=== PATIENT | male | born 1950 | race Caucasian/White ===

== ENCOUNTER → 2016-03-19 | Outpatient (CLI) | payer OTHER ==
--- NOTE | 2016-03-19 10:16 | MR ---
EXAMINATION TYPE: MR lumbar spine wo con DATE OF EXAM: 03/19/2016 9:50 AM COMPARISON: NONE HISTORY: low back pain for 6 months CONTRAST: 0 mL intravenous MultiHance. TECHNIQUE: Multiplanar, multisequence images of the lumbar spine were acquired. FINDINGS: L5-S1: No significant disc bulge or disc herniation. No spinal canal stenosis. No foraminal stenosi s. L4-L5: No significant disc bulge or disc herniation. No spinal canal stenosis. No foraminal stenosi s. L3-L4: No significant disc bulge or disc herniation. No spinal canal stenosis. There may be some fo raminal narrowing within the inferior portion disc bulging. L2-L3: No significant disc bulge or disc herniation. No spinal canal stenosis. No foraminal stenosi s. L1-L2: No significant disc bulge or disc herniation. No spinal canal stenosis. No foraminal stenosi s. T12-L1: No significant disc bulge or disc herniation. No spinal canal stenosis. No foraminal stenos is. IMPRESSION: 1. Mild foraminal narrowing from disc bulge at right L3-4.
== END | disposition home or self-care (01) ==
LOC: RADMRIMAIN 09:08
PROVIDERS: ATTEND Family Medicine
DX: M99.73 Connective tissue and disc stenosis of intervertebral foramina of lumbar region (principal); M51.26 Other intervertebral disc displacement, lumbar region
CPT/HCPCS: 72148

== ENCOUNTER 2016-04-17 15:20 | Inpatient (IN) | payer OTHER ==
[2016-04-17] MEDS ORDERED: SODIUM CHLORIDE 0.9% 1,000 ML IV STA (15:24)
[2016-04-17] MEDS ORDERED: methylPREDNISolone SOD SUCCI 125 MG/2 ML VIAL IV STA (15:24)
[2016-04-17] MEDS ORDERED: IPRATROPIUM-ALBUTEROL 3 ML NEB INHALATION STA ×2 (15:24→16:46)
--- NOTE | 2016-04-17 15:28 | ED ---
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 He was brought in by EMS. He does feel short of breath. He currently is a smoker he does not use an inhaler or updraft machine at home. No chest pain reported. He has had rhinorrhea MD Complaint: shortness of breath, cough - Related Data Home Medications Medication Instructions Recorded Confirmed Aspirin 325 mg PO DAILY 11/22/14 04/17/16 Furosemide [Lasix] 40 mg PO DAILY 11/22/14 04/17/16 Gabapentin [Neurontin] 400 mg PO TID 11/22/14 04/17/16 Lisinopril [Zestril] 10 mg PO DAILY 11/22/14 04/17/16 Magnesium Oxide [Mag-Ox] 250 mg PO DAILY 11/22/14 04/17/16 Niacin [Niacin ER] 1,000 mg PO HS 11/22/14 04/17/16 Warfarin [Coumadin] 10 mg PO DIRECTED 11/22/14 04/17/16 Atorvastatin [Lipitor] 80 mg PO HS 04/17/16 04/17/16 amLODIPine [Norvasc] 10 mg PO DAILY 04/17/16 04/17/16 Allergies Allergy/AdvReac Type Severity Reaction Status Date / Time No Known Allergies Allergy Verified 04/17/16 16:04 Review of Systems ROS Statement: Those systems with pertinent positive or pertinent negative responses have been documented in the HPI. ROS Other: All systems not noted in ROS Statement are negative. Past Medical History Past Medical History: COPD, Diabetes Mellitus, Hyperlipidemia, Hypertension History of Any Multi-Drug Resistant Organisms: None Reported Additional Past Surgical History / Comment(s): right abka, fem pop Past Psychological History: No Psychological Hx Reported Smoking Status: Current every day smoker Past Alcohol Use History: None Reported Past Drug Use History: None Reported General Exam - General Exam Comments Initial Comments: This is a well-developed well-nourished awake alert oriented times female he is actively coughing and demonstrating dyspnea General appearance: alert, anxious Head exam: Present: atraumatic, normocephalic, normal inspection Eye exam: Present: normal appearance, PERRL, EOMI. Absent: scleral icterus, conjunctival injection, periorbital swelling ENT exam: Present: mucous membranes dry Neck exam: Present: normal inspection. Absent: tenderness, meningismus, lymphadenopathy Respiratory exam: Present: wheezes, accessory muscle use, decreased breath sounds. Absent: respiratory distress, rales, rhonchi, stridor Cardiovascular Exam: Present: normal rhythm, tachycardia, normal heart sounds. Absent: systolic murmur, diastolic murmur, rubs, gallop, clicks GI/Abdominal exam: Present: soft, normal bowel sounds. Absent: distended, tenderness, guarding, rebound, rigid Extremities exam: Present: full ROM, normal capillary refill, other (Above-the- knee amputation on the right no evidence of any infectious process). Absent: tenderness, pedal edema, joint swelling, calf tenderness Back exam: Present: normal inspection Neurological exam: Present: alert, oriented X3, CN II-XII intact Psychiatric exam: Present: normal affect, normal mood Skin exam: Present: warm, dry, intact, normal color. Absent: rash Course Vital Signs 04/17/16 04/17/16 04/17/16 15:22 15:45 16:00 Temperature 99.2 F Pulse Rate 124 H 117 H 120 H Respiratory 24 20 Rate Blood Pressure 166/87 166/87 O2 Sat by Pulse 96 96 Oximetry 04/17/16 04/17/16 16:09 17:12 Temperature Pulse Rate 120 H 108 H Respiratory 20 Rate Blood Pressure 195/80 O2 Sat by Pulse 99 Oximetry - Reevaluation(s) Reevaluation #1: 04/17/16 17:17 The patient still very dyspneic though he has had some improvement. Medical Decision Making - Medical Decision Making Patient still very dyspneic she will be admitted I did discuss the findings with the patient and his family. He still tachycardic with exertional dyspnea he was positive for influenza. Additionally his troponin is positive. - Lab Data Result diagrams: 04/17/16 15:50 04/17/16 15:50 Lab Results 04/17/16 04/17/1617 Range/Units 15:50 15:50 15:50 WBC 6.9 (3.8-10.6) k/uL RBC 3.28 L (4.30-5.90) m/uL Hgb 10.0 L (13.0-17.5) gm/dL Hct 31.4 L (39.0-53.0) % MCV 95.7 (80.0-100.0) fL MCH 30.4 (25.0-35.0) pg MCHC 31.8 (31.0-37.0) g/dL RDW 15.3 (11.5-15.5) % Plt Count 156 (150-450) k/uL Neutrophils % 83 % Lymphocytes % 7 % Monocytes % 5 % Eosinophils % 1 % Basophils % 1 % Neutrophils # 5.7 (1.3-7.7) k/uL Lymphocytes # 0.5 L (1.0-4.8) k/uL Monocytes # 0.4 (0-1.0) k/uL Eosinophils # 0.0 (0-0.7) k/uL Basophils # 0.1 (0-0.2) k/uL PT (9.0-12.0) sec INR (<1.1) APTT (22.0-30.0) sec Sodium (137-145) mmol/L Potassium (3.5-5.1) mmol/L Chloride (98-107) mmol/L Carbon Dioxide (22-30) mmol/L Anion Gap mmol/L BUN (9-20) mg/dL Creatinine (0.66-1.25) mg/dL Est GFR (MDRD) Af Amer (>60 ml/min/1.73 sqM) Est GFR (MDRD) Non-Af (>60 ml/min/1.73 sqM) Glucose (74-99) mg/dL Calcium (8.4-10.2) mg/dL Magnesium (1.6-2.3) mg/dL Total Bilirubin (0.2-1.3) mg/dL AST (17-59) U/L ALT (21-72) U/L Alkaline Phosphatase (38-126) U/L Total Creatine Kinase 701 H (55-170) U/L CK-MB (CK-2) 2.7 H* (0.0-2.4) ng/mL CK-MB (CK-2) Rel Index 0.4 Troponin I 0.063 H* (0.000-0.034) ng/mL NT-Pro-B Natriuret Pep pg/mL Total Protein (6.3-8.2) g/dL Albumin (3.5-5.0) g/dL Influenza Type A RNA Detected H (Not Detectd) Influenza Type B (PCR) Not Detected (Not Detectd) 04/17/16 04/17/16 04/17/16 Range/Units 15:50 15:50 15:50 WBC (3.8-10.6) k/uL RBC (4.30-5.90) m/uL Hgb (13.0-17.5) gm/dL Hct (39.0-53.0) % MCV (80.0-100.0) fL MCH (25.0-35.0) pg MCHC (31.0-37.0) g/dL RDW (11.5-15.5) % Plt Count (150-450) k/uL Neutrophils % % Lymphocytes % % Monocytes % % Eosinophils % % Basophils % % Neutrophils # (1.3-7.7) k/uL Lymphocytes # (1.0-4.8) k/uL Monocytes # (0-1.0) k/uL Eosinophils # (0-0.7) k/uL Basophils # (0-0.2) k/uL PT 14.1 H (9.0-12.0) sec INR 1.4 (<1.1) APTT 29.7 (22.0-30.0) sec Sodium 139 (137-145) mmol/L Potassium 5.2 H (3.5-5.1) mmol/L Chloride 108 H (98-107) mmol/L Carbon Dioxide 19 L (22-30) mmol/L Anion Gap 12 mmol/L BUN 47 H (9-20) mg/dL Creatinine 2.98 H (0.66-1.25) mg/dL Est GFR (MDRD) Af Amer 26 (>60 ml/min/1.73 sqM) Est GFR (MDRD) Non-Af 21 (>60 ml/min/1.73 sqM) Glucose 129 H (74-99) mg/dL Calcium 9.1 (8.4-10.2) mg/dL Magnesium 2.1 (1.6-2.3) mg/dL Total Bilirubin 0.7 (0.2-1.3) mg/dL AST 37 (17-59) U/L ALT 25 (21-72) U/L Alkaline Phosphatase 100 (38-126) U/L Total Creatine Kinase (55-170) U/L CK-MB (CK-2) (0.0-2.4) ng/mL CK-MB (CK-2) Rel Index Troponin I (0.000-0.034) ng/mL NT-Pro-B Natriuret Pep 3680 pg/mL Total Protein 6.5 (6.3-8.2) g/dL Albumin 3.8 (3.5-5.0) g/dL Influenza Type A RNA (Not Detectd) Influenza Type B (PCR) (Not Detectd) - EKG Data -: EKG Interpreted by Al EKG shows normal: sinus rhythm Rate: tachycardia (Sinus tachycardia of 120 rate, OK interval 166 QRS duration 72 QT/QTC of 314/443 is otherwise normal EKG except for the tachycardia.) - Radiology Data Radiology results: report reviewed (Review the x-ray shows no acute findings.), image reviewed Critical Care Time Critical Care Time: Yes Critical Care Time: 35 minutes of critical care time which includes initial monitoring of the EMS call and discussed with paramedics. History physical lab and x-rays on the patient. Reevaluation patient several occasions. Discussion with the patient family regarding findings discussed with the main service. Admission orders and documentation. Disposition Clinical Impression: COPD with exacerbation, Acute respiratory distress syndrome, Influenza due to influenza virus, type A, human, Renal insufficiency syndrome, Elevated troponin , Congestive heart failure Disposition: ADMITTED IP TO THIS HOSP Condition: Stable
--- NOTE | 2016-04-17 16:25 | XR ---
EXAMINATION TYPE: XR chest 2V DATE OF EXAM: 04/17/2016 4:16 PM COMPARISON: Prior chest x-ray May 16, 2013. HISTORY: Cough and difficulty in breathing. TECHNIQUE: Frontal and lateral views of the chest are obtained. FINDINGS: Underlying emphysematous change is present. There is no focal air space opacity, pleural ef fusion, or pneumothorax seen. The cardiac silhouette size is within normal limits with atherosclerot ic change in thoracic aorta. The osseous structures are somewhat demineralized IMPRESSION: Chronic emphysematous change without acute pulmonary process.
[2016-04-17 16:33] LABS: Basophils # (A) 0.1 k/uL (0-0.2); Basophils % (A) 1 %; CH 31.2; CHCM 32.9; Eosinophils % (A) 1 %; HCT 31.4 % (39.0-53.0); HDW 3.06; Luc # (Auto) 0.26; Luc % (Auto) 4; Lymphocytes # (A) 0.5 k/uL (1.0-4.8); Lymphocytes % (A) 7 %; MCH 30.4 pg (25.0-35.0); MCHC 31.8 g/dL (31.0-37.0); MCV 95.7 fL (80.0-100.0); Mean Platelet Volume 7.5; Monocytes # (A) 0.4 k/uL (0-1.0); Monocytes % (A) 5 %; Neutrophils # (A) 5.7 k/uL (1.3-7.7); Neutrophils % (A) 83 %; RBC 3.28 m/uL (4.30-5.90); RDW 15.3 % (11.5-15.5); WBC 6.9 k/uL (3.8-10.6); WBC (Perox) 7.35
[2016-04-17 16:40] LABS: Calcium 9.1 mg/dL (8.4-10.2); Magnesium 2.1 mg/dL (1.6-2.3); Potassium 5.2 mmol/L (3.5-5.1); Total Bilirubin 0.7 mg/dL (0.2-1.3); Total Protein 6.5 g/dL (6.3-8.2)
[2016-04-17 16:48] LABS: INR 1.4 (<1.1); Partial Thromboplastin Time 29.7 sec (22.0-30.0); Prothrombin Time 14.1 sec (9.0-12.0)
[2016-04-17] MEDS ORDERED: SODIUM CHLORIDE 0.9% 500 ML IV STA (16:58)
[2016-04-17 17:04] LABS: Creatine Kinase MB 2.7 ng/mL (0.0-2.4); Troponin I 0.063 ng/mL (0.000-0.034)
[2016-04-17] MEDS ORDERED: WARFARIN 10 MG TAB PO SCH (17:30)
[2016-04-17] MEDS: IPRATROPIUM-ALBUTEROL 3 ML NEB INHALATION SCH ×2 (19:17→23:16)
[2016-04-17] MEDS: ATORVASTATIN 80 MG TAB PO SCH (20:29)
[2016-04-17] MEDS: NIACIN TR 500 MG CAPSULE.ER PO SCH (20:29)
[2016-04-17] MEDS: methylPREDNISolone SOD SUCCI 125 MG/2 ML VIAL IV SCH ×2 (20:29→23:08)
[2016-04-17] MEDS: GABAPENTIN 400 MG CAP PO SCH (20:33)
[2016-04-17] MEDS ORDERED: INSULIN LISPRO (humaLOG) 300 UNIT/3 ML VIAL SQ SCH (21:00)
[2016-04-17 21:05] LABS: Glucose,Whole Blood 377 mg/dL (75-99)
[2016-04-17 21:07] VITALS: BMI 24.3
[2016-04-17] MEDS: SODIUM CHLORIDE 0.9% 1,000 ML IV SCH (21:25)
[2016-04-17] MEDS ORDERED: IPRATROPIUM-ALBUTEROL 3 ML NEB INHALATION PRN (22:37)
[2016-04-17] MEDS ORDERED: ALPRAZolam 0.25 MG TAB PO PRN (22:38)
[2016-04-17] MEDS ORDERED: MELATONIN 3 MG TABLET PO PRN (22:40)
[2016-04-17 22:53] LABS: Glucose,Whole Blood 353 mg/dL (75-99)
[2016-04-17] MEDS: OSELTAMIVIR 75 MG CAP PO SCH (23:08)
[2016-04-17] MEDS: HEPARIN SODIUM,PORCINE 5,000 UNIT/ML 1 ML VIAL SQ SCH (23:08)
[2016-04-17] MEDS: WARFARIN 10 MG TAB PO SCH (23:08)
[2016-04-18] MEDS: IPRATROPIUM-ALBUTEROL 3 ML NEB INHALATION SCH ×5 (03:20→21:08)
[2016-04-18 06:28] LABS: Glucose,Whole Blood 389 mg/dL (75-99)
[2016-04-18 06:45] LABS: Basophils % (A) 0 %; CH 30.6; CHCM 31.3; Eosinophils % (A) 0 %; HCT 26.3 % (39.0-53.0); Hypochromasia Moderate; Luc # (Auto) 0.02; Luc % (Auto) 1; Lymphocytes # (A) 0.3 k/uL (1.0-4.8); Lymphocytes % (A) 6 %; MCH 30.7 pg (25.0-35.0); MCHC 31.2 g/dL (31.0-37.0); MCV 98.4 fL (80.0-100.0); Macrocytosis Slight; Mean Platelet Volume 7.6; Monocytes # (A) 0.1 k/uL (0-1.0); Monocytes % (A) 2 %; Neutrophils # (A) 3.7 k/uL (1.3-7.7); Neutrophils % (A) 91 %; RBC 2.68 m/uL (4.30-5.90); RDW 15.3 % (11.5-15.5); WBC (Perox) 4.15
[2016-04-18] MEDS: methylPREDNISolone SOD SUCCI 125 MG/2 ML VIAL IV SCH ×2 (06:47→11:53)
[2016-04-18 06:51] LABS: HGB 8.2 gm/dL (13.0-17.5)
[2016-04-18 06:54] LABS: INR 1.3 (<1.1); Prothrombin Time 12.4 sec (9.0-12.0)
[2016-04-18 07:03] LABS: Calcium 8.6 mg/dL (8.4-10.2); Potassium 4.5 mmol/L (3.5-5.1)
[2016-04-18] MEDS: SYMBICORT 160-4.5 MCG INHALER INHALATION SCH ×3 (07:14→21:08)
[2016-04-18 08:08] LABS: Glucose,Whole Blood 436 mg/dL (75-99)
[2016-04-18] MEDS: INSULIN LISPRO (humaLOG) 300 UNIT/3 ML VIAL SQ SCH ×3 (08:08→20:07)
[2016-04-18] MEDS: INSULIN REGULAR 100 UNIT in SODIUM CHLORIDE 0.9% 100 ML IV SCH ×2 (08:08→11:52)
[2016-04-18] MEDS: HEPARIN SODIUM,PORCINE 5,000 UNIT/ML 1 ML VIAL SQ SCH ×3 (08:42→23:41)
[2016-04-18] MEDS: amLODIPine 10 MG TAB PO SCH (08:43)
[2016-04-18] MEDS: GABAPENTIN 400 MG CAP PO SCH ×3 (08:43→21:19)
[2016-04-18] MEDS: OSELTAMIVIR 75 MG CAP PO SCH (08:43)
[2016-04-18] MEDS: MAGNESIUM OXIDE 400 MG TAB PO SCH (08:43)
[2016-04-18 08:50] LABS: Glucose,Whole Blood 430 mg/dL (75-99)
[2016-04-18] MEDS ORDERED: FUROSEMIDE 40 MG TAB PO SCH (09:00)
[2016-04-18] MEDS ORDERED: ASPIRIN 325 MG TAB PO SCH (09:00)
[2016-04-18] MEDS ORDERED: LISINOPRIL 10 MG TAB PO SCH (09:00)
[2016-04-18 09:07] LABS: Glucose,Whole Blood 419 mg/dL (75-99)
[2016-04-18 09:37] LABS: Glucose,Whole Blood 413 mg/dL (75-99)
[2016-04-18 10:06] LABS: Glucose,Whole Blood 367 mg/dL (75-99)
[2016-04-18 10:36] LABS: Glucose,Whole Blood 312 mg/dL (75-99)
[2016-04-18 10:59] LABS: Glucose,Whole Blood 269 mg/dL (75-99)
[2016-04-18 11:34] LABS: Glucose,Whole Blood 217 mg/dL (75-99)
--- NOTE | 2016-04-18 11:58 | P.CRDCN ---
History of Present Illness Consult date: 04/18/16 Requesting physician: Marcelino Go Reason for Consult (text): Abnormal troponin Chief complaint: Cough, diarrhea, chills History of present illness: This is a 66-year-old gentleman with history of hypertension, diabetes , hyperlipidemia, end-stage renal disease, nicotine dependence since age of 11, COPD, peripheral vascular disease peripheral arterial disease with prior right [id number] amputation. He presents to the hospital with symptoms of 2-3 duration of persistent productive cough with associated fever and chills. Patient also states she's been having intermittent diarrhea stools and is felt extremely weak and achy all over. He does also have associated shortness of breath, more than his usual. Patient denies having any chest discomfort. Chest x-ray on admission reveals chronic emphysematous changes without any acute pulmonary process. EKG on admission showed a sinus tachycardia with no acute changes. Laboratory data reviewed, hemoglobin on admission 10.0, 8.2 this morning. INR 1.4. Potassium 5.2 on admission, 4.5 this morning, creatinine on admission 2.9, 3.07 this morning. Magnesium level yesterday 2.1, troponin on admission 0.063. BNP level 3680. Influenza A positive. Low-grade temperature on arrival. Blood pressure 128/60 heart rate 100. At the time of my examination this morning, patient continues to have persistent cough, intermittent diarrhea. Denies any chest discomfort. Complaining of spasms in his bilateral hands. Past Medical History Past Medical History: COPD, Diabetes Mellitus, Deep Vein Thrombosis (DVT), Hyperlipidemia, Hypertension, Renal Disease History of Any Multi-Drug Resistant Organisms: None Reported Additional Past Surgical History / Comment(s): right aka, fem pop Past Anesthesia/Blood Transfusion Reactions: No Reported Reaction Past Psychological History: No Psychological Hx Reported Smoking Status: Current every day smoker Past Alcohol Use History: None Reported Additional Past Alcohol Use History / Comment(s): Smokes 1pack a day. Drinks a beer on occasion. Lives at home alone with 1 dog and 2 cats Past Drug Use History: None Reported - Past Family History Father History Unknown: Yes Additional Family Medical History / Comment(s): from blood clot back in 1968 Mother History Unknown: Yes Additional Family Medical History / Comment(s): at 94 Medications and Allergies Home Medications Medication Instructions Recorded Confirmed Type Aspirin 325 mg PO DAILY 11/22/14 04/17/16 History Furosemide [Lasix] 40 mg PO DAILY 11/22/14 04/17/16 History Gabapentin [Neurontin] 400 mg PO TID 11/22/14 04/17/16 History Lisinopril [Zestril] 10 mg PO DAILY 11/22/14 04/17/16 History Magnesium Oxide [Mag-Ox] 250 mg PO DAILY 11/22/14 04/17/16 History Niacin [Niacin ER] 1,000 mg PO HS 11/22/14 04/17/16 History Warfarin [Coumadin] 10 mg PO DIRECTED 11/22/14 04/17/16 History Atorvastatin [Lipitor] 80 mg PO HS 04/17/16 04/17/16 History amLODIPine [Norvasc] 10 mg PO DAILY 04/17/16 04/17/16 History Allergies Allergy/AdvReac Type Severity Reaction Status Date / Time No Known Allergies Allergy Verified 04/17/16 16:04 Physical Exam Vitals: Vital Signs Temp Pulse Pulse Resp BP BP Pulse Ox 04/18/16 11:11 80 04/18/16 10:59 80 04/18/16 08:02 97.4 F L 105 H 18 128/60 93 L 04/18/16 07:24 86 04/18/16 07:15 72 04/18/16 04:00 97.6 F 111 H 18 137/65 97 04/18/16 03:32 96 04/18/16 03:20 84 04/17/16 23:32 92 04/17/16 23:27 98.0 F 100 20 135/69 98 04/17/16 23:17 88 04/17/16 20:11 96.8 F L 112 H 18 153/71 98 04/17/16 19:32 110 H 04/17/16 19:20 110 H 04/17/16 19:00 98.3 F 109 H 18 152/73 97 04/17/16 17:29 106 H Intake and Output 04/17/16 04/18/16 04/18/16 22:59 06:59 14:59 Intake Total 250 283.333 Balance 250 283.333 Intake: Intake, IV Titration 83.333 Amount Insulin Regular 100 unit 83.333 In Sodium Chloride 0.9% 100 ml @ Titrate IV .Q0M [facility] Rx#:[id number] Oral 250 200 Other: Voiding Method Toilet Toilet Diaper Urinal # Voids 1 1 1 # Bowel Movements 1 1 Weight 81.46 kg 77.4 kg PHYSICAL EXAMINATION: HEENT: Head is atraumatic, normocephalic. Pupils equal, round. Neck is supple. There is no elevated jugular venous pressure. HEART EXAMINATION: Heart S1, S2 normal. No murmur or gallop heard. CHEST EXAMINATION: Lungs reveal scattered coarse rhonchi throughout. ABDOMEN: Soft, nontender. Bowel sounds are heard. No organomegaly noted. EXTREMITIES:[ 1+ pulse to the left lower extremity, patient has a right above- the-knee amputation.. NEUROLOGIC patient is awake, alert and oriented -3. . Results 04/18/16 05:51 04/18/16 05:51 Coagulation 04/18/16 Range/Units 05:51 PT 12.4 H (9.0-12.0) sec CBC 04/18/16 Range/Units 05:51 WBC 4.0 (3.8-10.6) k/uL RBC 2.68 L (4.30-5.90) m/uL Hgb 8.2 L D (13.0-17.5) gm/dL Hct 26.3 L (39.0-53.0) % Plt Count 131 L (150-450) k/uL Comprehensive Metabolic Panel 04/18/16 Range/Units 05:51 Sodium 137 (137-145) mmol/L Potassium 4.5 (3.5-5.1) mmol/L Chloride 105 (98-107) mmol/L Carbon Dioxide 17 L (22-30) mmol/L BUN 54 H (9-20) mg/dL Creatinine 3.07 H (0.66-1.25) mg/dL Glucose 346 H (74-99) mg/dL Calcium 8.6 (8.4-10.2) mg/dL Current Medications Generic Name Dose Route Start Last Admin Trade Name Freq PRN Reason Stop Dose Admin Albuterol/Ipratropium 3 ml 04/17/16 20:00 04/18/16 10:59 Duoneb 0.5 Mg-3 Mg/3 Ml Soln INHALATION 3 ml RT-Q4H SAM Administration Albuterol/Ipratropium 3 ml 04/17/16 22:37 Duoneb 0.5 Mg-3 Mg/3 Ml Soln INHALATION RT-Q2H PRN Shortness Of Breath Or Wheezing Alprazolam 0.25 mg 04/17/16 22:38 Xanax PO TID PRN Anxiety Amlodipine Besylate 10 mg 04/18/16 09:00 04/18/16 08:43 Norvasc PO 10 mg DAILY SAM Administration Aspirin 81 mg 04/19/16 09:00 Aspirin PO DAILY SAM Atorvastatin Calcium 80 mg 04/17/16 21:00 04/17/16 20:29 Lipitor PO 80 mg HS SAM Administration Budesonide/Formoterol Fumarate 2 puff 04/18/16 08:00 04/18/16 07:19 Symbicort 160-4.5 Mcg Inhaler INHALATION Not Given RT-BID SAM Furosemide 40 mg 04/18/16 09:00 04/18/16 08:43 Lasix PO 40 mg DAILY SAM Administration Gabapentin 400 mg 04/17/16 22:00 04/18/16 08:43 Neurontin PO 400 mg TID SAM Administration Heparin Sodium (Porcine) 5,000 unit 04/18/16 00:00 04/18/16 08:42 Heparin SQ 5,000 unit Q8HR SAM Administration Sodium Chloride 1,000 mls @ 20 mls/hr 04/17/16 17:30 04/17/16 21:25 Saline 0.9% IV 20 mls/hr .Q24H SAM Administration Insulin Human Regular 100 unit 101 mls @ 0 mls/hr 04/18/16 06:45 04/18/16 11: 33 / Sodium Chloride IV 3 mls/hr .Q0M SAM 3 mls/hr Protocol Titration Titrate Insulin Human Lispro 10 unit 04/18/16 07:30 04/18/16 08:08 Humalog SQ 10 unit AC-TID SAM Administration Lisinopril 10 mg 04/18/16 09:00 04/18/16 08:43 Zestril PO 10 mg DAILY SAM Administration Magnesium Oxide 400 mg 04/18/16 09:00 04/18/16 08:43 Mag-Ox PO 400 mg DAILY SAM Administration Melatonin 3 mg 04/17/16 22:40 04/17/16 23:08 Melatonin PO 3 mg HS PRN Administration Insomnia Methylprednisolone Sodium Succinate 60 mg 04/17/16 18:00 03/13/17 06:47 Solu-Medrol IV 60 mg Q6HR SAM Administration Niacin 1,000 mg 04/17/16 21:00 04/17/16 20:29 Niacin Tr PO 1,000 mg HS SAM Administration Oseltamivir Phosphate 30 mg 04/19/16 09:00 Tamiflu PO 04/22/16 09:01 DAILY SAM Warfarin Sodium 10 mg 04/17/16 22:36 04/17/16 23:08 Coumadin PO 10 mg DAILY@1800 SAM Administration Intake and Output 04/17/16 04/18/16 04/18/16 22:59 06:59 14:59 Intake Total 250 283.333 Balance 250 283.333 Intake: Intake, IV Titration 83.333 Amount Insulin Regular 100 unit 83.333 In Sodium Chloride 0.9% 100 ml @ Titrate IV .Q0M [facility] Rx#:[id number] Oral 250 200 Other: Voiding Method Toilet Toilet Diaper Urinal # Voids 1 1 1 # Bowel Movements 1 1 Weight 81.46 kg 77.4 kg 04/18/16 05:51 04/18/16 05:51 EKG Interpretations (text) EKG shows a sinus tachycardia with no acute changes. Assessment and Plan Plan: Assessment and plan #1 symptoms of productive cough, fever, diarrhea stools. Positive for influenza A. #2 abnormal troponin, 0.063. Likely representing a type II event, could be secondary to abnormal renal function. EKG shows sinus tachycardia with no acute changes. #3 hypertension #4 diabetes, uncontrolled # 5 hyperlipidemia #6 nicotine dependence #7 COPD #8 peripheral vascular and peripheral arterial disease status post right above- the-knee amputation #9 acute on chronic renal failure #10 history of prior DVT Plan We will obtain an echocardiogram with Doppler study to assess the patient's LV function. We will also obtain 2 subsequent troponins. Further recommendations to follow. DNP note has been reviewed, I agree with a documented findings and plan of care. Patient was seen and examined.
[2016-04-18] MEDS: SODIUM CHLORIDE 0.9% 1,000 ML IV SCH ×2 (13:14)
[2016-04-18 13:18] LABS: Glucose,Whole Blood 115 mg/dL (75-99)
[2016-04-18] MEDS ORDERED: LORazepam 1 MG TAB PO PRN (14:26)
[2016-04-18] MEDS ORDERED: TEMAZEPAM 15 MG CAP PO PRN (14:26)
[2016-04-18] MEDS ORDERED: HYDROmorphone 1 MG/ML 1 ML SYRINGE IVP PRN (14:26)
[2016-04-18] MEDS ORDERED: HYDROcodone/APAP 5-325MG 1 EACH TAB PO PRN (14:26)
[2016-04-18 14:34] LABS: Glucose,Whole Blood 116 mg/dL (75-99)
[2016-04-18 15:54] LABS: Glucose,Whole Blood 86 mg/dL (75-99)
[2016-04-18 16:43] LABS: Glucose,Whole Blood 101 mg/dL (75-99)
[2016-04-18] MEDS ORDERED: MENTHOL (NICE) LOZENGE MUCOUS MEM PRN (16:59)
[2016-04-18 17:44] LABS: Glucose,Whole Blood 125 mg/dL (75-99)
[2016-04-18 18:46] LABS: Glucose,Whole Blood 170 mg/dL (75-99)
[2016-04-18 19:49] LABS: Glucose,Whole Blood 232 mg/dL (75-99)
[2016-04-18] MEDS: NICOTINE 14MG/24HR PATCH TRANSDERM SCH (19:56)
[2016-04-18] MEDS: methylPREDNISolone SOD SUCCI 40 MG/ML 1 ML VIAL IV SCH ×2 (20:01→23:42)
[2016-04-18 20:33] LABS: Glucose,Whole Blood 251 mg/dL (75-99)
--- NOTE | 2016-04-18 20:33 | HP ---
DATE OF ADMISSION: 04/17/2016 CHIEF COMPLAINT: Cough and vomiting, diarrhea. HISTORY OF PRESENT ILLNESS: This 66-year-old gentleman with a past medical history of multiple medical problems including COPD, diabetes mellitus, type II, deep venous thrombosis, hypertension, hyperlipidemia, history of right above knee amputation, peripheral vascular disease, being followed by Dr. Alvarez in the [facility] in the outpatient setting not feeling well over the past 2 days. The patient has increasing cough and sputum. The patient also has fever, rigors and chills. The patient is extremely weak and oral intake appears to be extremely poor and the patient came to [facility] Emergency Room Department and was admitted for further evaluation and treatment. During the hospitalization, the patient influenza A was positive. The patient also has multiple electrolyte abnormalities, the patient was thought to have was diagnosed to have recent renal failure recently. Currently the creatinine elevated to 2.9. The patient was found to be hydrated and has features of acute renal failure. The troponin also found to be indeterminate 0.06, not much chest pain is reported. Creatinine kinase is 7.701 indicating probably rhabdomyolysis as well. Cardiology evaluation in progress. The blood sugars also elevated. Hemoglobin A1c is 7. Sugars are more than 400, insulin drip is being also utilized at this time. There is no history of any headache, any loss of consciousness or seizures. No history of hemoptysis, hematemesis, melena at this time. PAST MEDICAL HISTORY: 1. History of COPD. 2. History of diabetes mellitus, Type 2. 3. History of deep venous thrombosis. 4. Hypertension. 5. Hyperlipidemia. 6. History of right above knee amputation. 7. History of peripheral vascular disease. Medications prior to admission: 1. Norvasc 10 mg daily. 2. Coumadin 10 mg as before. 3. Niacin ER q.h.s. 4. Magnesium oxide 250 mg daily. 5. Zestril 10 mg p.o. daily. 6. Neurontin 400 mg t.i.d. 7. Lasix 40 mg p.o. daily. 8. Lipitor 80 mg q.h.s. 9. Aspirin 320 mg daily. ALLERGIES: None. FAMILY HISTORY: History of blood clots in the family. SOCIAL HISTORY: History of smoking. Continued ongoing occasional alcohol intake. REVIEW OF SYSTEMS: ENT: No diminished hearing. No diminished vision. CARDIOVASCULAR: As mentioned earlier. RESPIRATORY: As mentioned earlier. GI: As mentioned earlier. : As mentioned earlier. Nervous system: No numbness. Generalized weakness. Allergy/immunology: No asthma or hayfever. MUSCULOSKELETAL: As mentioned earlier. HEMATOLOGY/ONCOLOGY: As mentioned earlier. ENDOCRINE: As mentioned earlier. CONSTITUTIONAL: as mentioned earlier. DERMATOLOGY: negative. RHEUMATOLOGY: As mentioned earlier. PSYCHIATRY: As mentioned earlier. PHYSICAL EXAMINATION: Patient is alert and oriented x3. Pulse 89, blood pressure 114/70, respiratory rate 19, temperature 98.6, pulse ox 93% on room air. HEENT: Conjunctivae normal. Oral mucosa moist. NECK: No jugular venous distention. No lymph node enlargement. CARDIOVASCULAR: S1 and S2, muffled. No S3, no S4. RESPIRATORY: Breath sounds diminished at the bases. A few bilateral scattered rhonchi and expiratory wheezing and crackles. ABDOMEN: Soft, nontender. No mass palpable. Legs: No edema, no swelling. Nervous system: Higher function as mentioned earlier. Moves all 4 limbs. No focal motor or sensory deficits. LYMPHATICS: No lymph nodes palpable in the neck, axillae or groin. SKIN: No ulcer, rash or bleeding. LABS: EKG shows sinus tachycardia. WBC 6.9, hemoglobin is 10 and now 8.2, potassium 5.2, creatinine is 2.98. Glucose noted troponin noted ( ) is positive. ASSESSMENT: 1. Acute influenza B with severe acute respiratory syndrome. 2. Acute renal failure, severe with possible acute on chronic kidney disease stage III with secondary to prerenal factors. 3. Diabetes mellitus type 2, uncontrolled on insulin drip. 4. Acute rhabdomyolysis with CK 701. 5. Troponin 0.063 indeterminate. 6. Mild hyperkalemia. 7. Anemia, normocytic, possibly anemia of chronic disease. 8. Thrombocytopenia. 9. History of chronic obstructive pulmonary disease, acute exacerbation. 10. Diabetes mellitus type 2. 11. History of deep venous thrombosis. 12. Hypertension. 13. Hyperlipidemia. 14. History of right above knee amputation. 15. History of femoropopliteal bypass. 16. Peripheral vascular disease. 17. History of nicotine dependence, continued ongoing. 18. NO CODE, NO CPR, NO VENT. RECOMMENDATIONS AND DISCUSSION: In this 66-year-old gentleman who presented with multiple complex medical issues, we will monitor the patient closely. Continue with medications. I recommend to hold Lasix, IV fluids cautiously and nephrology evaluation. Otherwise, we will continue with Tamiflu with renal dosing. Cardiology, has been already consulted for indeterminate troponins, we will monitor the CK as well. Otherwise, INR is only 1.3. I will recommend to continue the Coumadin. Also initiate heparin subcu until the Coumadin is therapeutic. Otherwise, prognosis guarded because of multiple complex medical issues. We will cut down the steroids and keep the insulin drip for now and we will monitor closely. Once blood sugars are controlled, we will transition to regular dosage of insulin. The bronchodilators will be also ordered. The prognosis is guarded because of multiple complex medical issues. Further recommendations to follow. We will hold the Lisinopril also. Dr. Hargrove will be consulted. 2-D echo has been ordered. Guarded prognosis because of multiple complex medical issues. Further recommendations to follow. A copy of dictation being forwarded to Dr. Alvarez who is the primary physician. See orders for details. The patient has multiple complex medical issues as detailed above. MTDD
[2016-04-18] MEDS: NIACIN TR 500 MG CAPSULE.ER PO SCH (21:18)
[2016-04-18] MEDS: WARFARIN 10 MG TAB PO SCH (21:18)
[2016-04-18] MEDS: ATORVASTATIN 80 MG TAB PO SCH (21:19)
[2016-04-18 22:06] LABS: Glucose,Whole Blood 173 mg/dL (75-99)
[2016-04-18 23:40] LABS: Glucose,Whole Blood 122 mg/dL (75-99)
[2016-04-19] MEDS: IPRATROPIUM-ALBUTEROL 3 ML NEB INHALATION SCH ×6 (00:30→22:03)
[2016-04-19 00:46] LABS: Glucose,Whole Blood 104 mg/dL (75-99)
[2016-04-19 01:37] LABS: Glucose,Whole Blood 106 mg/dL (75-99)
[2016-04-19 02:39] LABS: Glucose,Whole Blood 149 mg/dL (75-99)
[2016-04-19 04:43] LABS: Glucose,Whole Blood 207 mg/dL (75-99)
[2016-04-19] MEDS: methylPREDNISolone SOD SUCCI 40 MG/ML 1 ML VIAL IV SCH ×3 (05:54→17:50)
[2016-04-19] MEDS: SODIUM CHLORIDE 0.9% 1,000 ML IV SCH ×3 (05:56→21:50)
[2016-04-19 06:45] LABS: Glucose,Whole Blood 200 mg/dL (75-99)
[2016-04-19] MEDS: SYMBICORT 160-4.5 MCG INHALER INHALATION SCH ×3 (07:45→22:03)
[2016-04-19 08:00] LABS: Basophils % (A) 0 %; CH 30.7; CHCM 32.1; Eosinophils % (A) 0 %; HCT 25.9 % (39.0-53.0); HDW 3.15; HGB 8.2 gm/dL (13.0-17.5); Hypochromasia Slight; Luc % (Auto) 1; Lymphocytes # (A) 0.5 k/uL (1.0-4.8); Lymphocytes % (A) 2 %; MCH 30.6 pg (25.0-35.0); MCHC 31.8 g/dL (31.0-37.0); MCV 96.4 fL (80.0-100.0); Mean Platelet Volume 7.7; Monocytes # (A) 0.7 k/uL (0-1.0); Monocytes % (A) 3 %; Neutrophils # (A) 22.3 k/uL (1.3-7.7); Neutrophils % (A) 94 %; RBC 2.68 m/uL (4.30-5.90); RDW 15.4 % (11.5-15.5); WBC 23.8 k/uL (3.8-10.6); WBC (Perox) 25.04
[2016-04-19 08:03] LABS: Calcium 8.5 mg/dL (8.4-10.2); Potassium 5.3 mmol/L (3.5-5.1)
[2016-04-19] MEDS: HEPARIN SODIUM,PORCINE 5,000 UNIT/ML 1 ML VIAL SQ SCH ×2 (08:06→15:54)
[2016-04-19] MEDS: PANTOPRAZOLE 40 MG TABLET PO SCH (08:06)
[2016-04-19] MEDS: INSULIN LISPRO (humaLOG) 300 UNIT/3 ML VIAL SQ SCH ×3 (08:06→17:49)
[2016-04-19] MEDS: MAGNESIUM OXIDE 400 MG TAB PO SCH (08:07)
[2016-04-19] MEDS: GABAPENTIN 400 MG CAP PO SCH ×3 (08:07→21:51)
[2016-04-19] MEDS: NICOTINE 14MG/24HR PATCH TRANSDERM SCH (08:07)
[2016-04-19] MEDS: ASPIRIN 81 MG CHEW PO SCH (08:07)
[2016-04-19] MEDS: amLODIPine 10 MG TAB PO SCH (08:07)
[2016-04-19 08:09] LABS: INR 1.6 (<1.1); Prothrombin Time 15.3 sec (9.0-12.0)
[2016-04-19 08:34] LABS: Glucose,Whole Blood 187 mg/dL (75-99)
--- NOTE | 2016-04-19 08:43 | ECHOF ---
Referral Reason:abn trop MEASUREMENTS -------- HEIGHT: 182.9 cm WEIGHT: 77.1 kg BP: IVSd: 1.3 cm (0.6 - 1.1) LVIDd: 5.0 cm (3.9 - 5.3) LVPWd: 1.2 cm (0.6 - 1.1) IVSs: 1.5 cm LVIDs: 3.7 cm LVPWs: 1.8 cm LA Diam: 3.6 cm (2.7 - 3.8) Ao Diam: 3.9 cm (2.0 - 3.7) AV Cusp: 1.2 cm (1.5 - 2.6) LA Diam: 2.7 cm (2.7 - 3.8) MV EXCURSION: 24.642 mm (> 18.000) MV EF SLOPE: 118 mm/s (70 - 150) EPSS: 2.0 cm MV E Shorty: 0.67 m/s MV A Shorty: 1.14 m/s MV E/A Ratio: 0.59 AV maxP.57 mmHg AV meanP.50 mmHg RAP: 5.00 mmHg RVSP: 30.88 mmHg FINDINGS -------- Undetermined rhythm. This was a technically adequate study. There is mild concentric left ventricular hypertrophy. Overall left ventricular systolic function is low-normal with, an EF between 50 - 55 %. The right ventricle is normal in size. The left atrial size is normal. The right atrial size is normal. There is mild aortic valve sclerosis. There is no evidence of aortic regurgitation. Peak/mean gradient across the Aortic Valve is 15.57mmHg / 8.50mmHg. Mild mitral annular calcification present. Mild mitral regurgitation is present. Mild tricuspid regurgitation present. There is no evidence of pulmonary hypertension. The right ventricular systolic pressure, as measured by Doppler, is 30.88mmHg. There is no pulmonic regurgitation present. The aortic root size is normal. There is no pericardial effusion. CONCLUSIONS -------- 1. There is mild concentric left ventricular hypertrophy. 2. Overall left ventricular systolic function is low-normal with, an EF between 50 - 55 %. 3. There is mild aortic valve sclerosis. 4. Peak/mean gradient across the Aortic Valve is 15.57mmHg / 8.50mmHg. 5. Mild mitral annular calcification present. 6. Mild mitral regurgitation is present. 7. Mild tricuspid regurgitation present. 8. There is no evidence of pulmonary hypertension. 9. The right ventricular systolic pressure, as measured by Doppler, is 30.88mmHg. STRIP MINE SUPERVISOR: Nadine Stacy RDCS
[2016-04-19] MEDS: OSELTAMIVIR 60 MG/10 ML ORAL SYRINGE PO SCH (08:58)
[2016-04-19 10:46] LABS: Glucose,Whole Blood 229 mg/dL (75-99)
--- NOTE | 2016-04-19 11:02 | P.NPCON ---
History of Present Illness - Reason for Consult acute renal failure - History of Present Illness Reason for consultation: Acute kidney injury on chronic kidney disease History of present illness: Patient is a 66-year-old male seen in consultation for acute kidney injury on chronic kidney disease. 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 Yunior chandler of [facility]. Patient presented to the hospital with fever and a nonproductive cough along with poor oral intake. He was noted to be positive for influenza A virus. He admits to good urine output. Chest x-ray revealed no evidence of fluid overload. Did have vomiting prior to admission. Denies significant diarrhea. Oral intake is improving. Denies use of NSAIDs at home. Denies any family history of renal disease. Vital signs are stable. General: The patient appeared well nourished and normally developed. HEENT: Head exam is unremarkable. Neck is without jugular venous distension. LUNGS: Lungs are clear to auscultation and percussion. Breath sounds decreased. HEART: Rate and Rhythm are regular. First and second heart sounds normal. No murmurs, rubs or gallops. ABDOMEN: Abdominal exam reveals normal bowel sounds. Non-tender and non- distended. No evidence of peritonitis. EXTREMITITES: No clubbing, cyanosis, or edema. Past Medical History Past Medical History: COPD, Diabetes Mellitus, Deep Vein Thrombosis (DVT), Hyperlipidemia, Hypertension, Renal Disease History of Any Multi-Drug Resistant Organisms: None Reported Additional Past Surgical History / Comment(s): right aka, fem pop Past Anesthesia/Blood Transfusion Reactions: No Reported Reaction Past Psychological History: No Psychological Hx Reported Smoking Status: Current every day smoker Past Alcohol Use History: None Reported Additional Past Alcohol Use History / Comment(s): Smokes 1pack a day. Drinks a beer on occasion. Lives at home alone with 1 dog and 2 cats Past Drug Use History: None Reported - Past Family History Father History Unknown: Yes Additional Family Medical History / Comment(s): from blood clot back in 1968 Mother History Unknown: Yes Additional Family Medical History / Comment(s): at 94 Medications and Allergies Home Medications Medication Instructions Recorded Confirmed Type Aspirin 325 mg PO DAILY 11/22/14 04/17/16 History Furosemide [Lasix] 40 mg PO DAILY 11/22/14 04/17/16 History Gabapentin [Neurontin] 400 mg PO TID 11/22/14 04/17/16 History Lisinopril [Zestril] 10 mg PO DAILY 11/22/14 04/17/16 History Magnesium Oxide [Mag-Ox] 250 mg PO DAILY 11/22/14 04/17/16 History Niacin [Niacin ER] 1,000 mg PO HS 11/22/14 04/17/16 History Warfarin [Coumadin] 10 mg PO DIRECTED 11/22/14 04/17/16 History Atorvastatin [Lipitor] 80 mg PO HS 04/17/16 04/17/16 History amLODIPine [Norvasc] 10 mg PO DAILY 04/17/16 04/17/16 History Allergies Allergy/AdvReac Type Severity Reaction Status Date / Time No Known Allergies Allergy Verified 04/17/16 16:04 Physical Exam Vitals: Vital Signs Temp Pulse Pulse Pulse Resp BP Pulse Ox 04/19/16 07:43 97.0 F L 101 H 18 155/78 93 L 04/18/16 22:53 97.5 F L 103 H 16 139/73 96 04/18/16 21:23 80 04/18/16 21:09 80 04/18/16 17:00 84 04/18/16 16:49 84 04/18/16 15:00 98 F 99 18 123/77 97 04/18/16 12:00 98.6 F 89 19 114/78 93 L 04/18/16 11:11 80 04/18/16 10:59 80 Intake and Output 04/18/16 04/19/16 04/19/16 22:59 06:59 14:59 Intake Total 6.967 389.492 5.567 Output Total 650 Balance 6.967 -260.508 5.567 Intake: Intake, IV Titration 6.967 9.492 5.567 Amount Insulin Regular 100 unit 6.967 9.492 5.567 In Sodium Chloride 0.9% 100 ml @ Titrate IV .Q0M [facility] Rx#:[id number] Oral 380 Output: Urine 650 Other: Voiding Method Toilet Toilet Urinal Urinal # Voids 2 1 Results - Lab Results Most recent lab results Calcium 8.5 mg/dL (8.4-10.2) 04/19/16 07:29 Magnesium 2.1 mg/dL (1.6-2.3) 04/17/16 15:50 04/19/16 07:29 04/19/16 07:29 Assessment and Plan Plan: Assessment: #1. Nonoliguric acute kidney injury mostly prerenal in nature secondary to poor oral intake and diuresis. Creatinine 3.09 today. #2. Chronic kidney disease stage IV secondary to diabetic kidney disease. Creatinine in November 2014 was 2.26. #3. Influenza A virus. #4. Anemia. Rule out iron deficiency. #5. Metabolic acidosis secondary to chronic kidney disease. #6. Insulin-dependent diabetes mellitus. Plan: Maintain normal saline to be run at 100 mL an hour. Avoid nephrotoxic agents and hypotensive episodes. Diuretics held for now. Check urinalysis. Check kidney ultrasound. Check iron studies. Encourage oral intake. Start oral sodium bicarbonate supplementation. Repeat electrolytes in the morning. Thank you for the consultation. I will continue to follow the patient with you during his hospital stay.
[2016-04-19 11:20] LABS: % Iron Saturation 13.9 % (20-50)
[2016-04-19 11:29] LABS: Appearance,Urine Clear (Clear); Bilirubin,Urine Negative (Negative); Glucose,Urine (UA) 1+ (Negative); Ketones,Urine Negative (Negative); Leukocyte Esterase,Urine Negative (Negative); Mucus,Urine Rare /hpf; Nitrite,Urine Negative (Negative); PH, Urine 5.5 (5.0-8.0); Particle Count 2467; Protein,Urine 1+ (Negative); RBC,Urine 2 /hpf (0-5); Specific Gravity,Urine 1.004 (1.001-1.035); Squamous Epithelial Cell,Urine <1 /hpf (0-4); UA Billing (MACRO vs. MICRO) MICRO; Urobilinogen,Urine <2.0 mg/dL (<2.0); WBC,Urine <1 /hpf (0-5)
[2016-04-19 12:31] LABS: Glucose,Whole Blood 181 mg/dL (75-99)
[2016-04-19] MEDS: LEVOFLOXACIN 500MG-D5W PMX 500 MG in DEXTROSE/WATER 1 100ML.BAG IVPB SCH (12:33)
[2016-04-19] MEDS: SODIUM BICARBONATE TAB 650 MG TAB PO SCH ×2 (12:37→21:50)
--- NOTE | 2016-04-19 13:01 | US ---
EXAMINATION TYPE: US kidneys/renal and bladder DATE OF EXAM: 04/19/2016 11:56 AM COMPARISON: CT lumbar spine May 16, 2013. MRI lumbar spine March 19, 2016 CLINICAL HISTORY: ariella. EXAM MEASUREMENTS: Right Kidney: 12.6 x 4.7 x 4.4cm Left Kidney: 13.1 x 5.7 x 5.3 cm TECHNOLOGIST IMPRESSION: Right Kidney: cystic area lower pole = 1.8 x 1.8 x 1.7cm Left Kidney: cystic area mid = 1.2 x 1.0 x 1.0cm Bladder: not fully distended Bilateral Jets seen: yes There is no evidence for hydronephrosis at this point in time. No nephrolithiasis is seen. No suspi cious solid or cystic masses are identified. There is suspected 1.8 cm simple appearing cyst exophyti alireza lower pole level right kidney though is not clearly seen on prior CT and/or MRI. There is small er 1.2 cm round hypoechoic anechoic lesion mid pole level left kidney could reflect simple cyst also not clearly seen on prior imaging studies. The urinary bladder is suboptimally distended without intr aluminal mass. Wall thickness is mildly prominent but likely product of suboptimal distention. Bilate ral ureteral jets are seen. IMPRESSION: No hydronephrosis is evident bilaterally.
[2016-04-19 14:39] LABS: Glucose,Whole Blood 193 mg/dL (75-99)
--- NOTE | 2016-04-19 16:30 | PN ---
DATE OF SERVICE: 04/19/2016 This 66-year-old gentleman who was admitted with cough and vomiting and diarrhea and acute influenza A also had acute on chronic renal failure. The patient is being closely monitored at this time. The patient also had abdominal bladder ultrasound which showed no hydronephrosis. Nephrology is following the patient closely. Otherwise, the patient was started on Tamiflu. The white count is also elevated. The patient is on empiric IV antibiotics as well. The patient has chronic kidney disease, stage IV, per Dr. Baig. IV fluids remain at 100 mL/hour. Past medical history reviewed. REVIEW OF SYSTEMS: CARDIOVASCULAR SYSTEM: No angina, palpitations. RESPIRATORY SYSTEM: As mentioned earlier. GI: As mentioned earlier. : No dysuria. NERVOUS SYSTEM: No numbness or weakness. Current medications are reviewed and include: 1. [place] 5 mg q.6. 2. DuoNeb q.i.d. and p.r.n. 3. Norvasc 10 mg daily. 4. Aspirin 81 mg p.o. daily. 5. Lipitor 80 mg p.o. daily. 6. Symbicort 160/4.5 two puffs b.i.d. 7. Neurontin 400 mg t.i.d. 8. Heparin 5000 units subcutaneously q.8. 9. Dilaudid. 10. Levaquin 500 mg IV daily. 11. Melatonin. 12. Solu-Medrol 20 IV q.6. 13. Niacin 1000 mg at bedtime. 14. Habitrol 14 daily. 15. Tamiflu 30 mg p.o. daily. 16. Protonix 40 mg with breakfast. 17. Restoril 15 mg at bedtime. 18. Coumadin 10 mg p.o. daily. PHYSICAL EXAMINATION: Patient is alert and oriented x3. Pulse is 101. Blood pressure is 155/78, respiration 18, temperature 97 degrees, pulse ox 93% on room air. HEENT: Conjunctivae normal. Oral mucosa moist. NECK: No jugular venous distention. No carotid bruit. No lymph node enlargement. CARDIOVASCULAR SYSTEM: S1, S2 muffled. RESPIRATORY SYSTEM: Breath sounds diminished at the bases. A few scattered rhonchi. Expiratory wheezing also present. No crackles. ABDOMEN: Soft, non-tender. No mass palpable. LEGS: No edema. No swelling. NERVOUS SYSTEM: Higher functions as mentioned earlier. Moves all 4 limbs. No focal motor or sensory deficit. LYMPHATICS: No lymph node palpable in neck, axillae or groin. SKIN: No ulcer, rash, bleeding. LABS: WBC is 23.8, up from 4 yesterday. Hemoglobin is 8.2. Sodium 137, potassium 5.3. Creatinine is 3.09. Iron is noted. Troponin noted. UA noted. Influenza A is positive. ASSESSMENT: 1. Acute influenza A with possible sepsis, present on admission. 2. Acute renal failure, severe, with possible acute on chronic kidney disease, stage III, secondary to prerenal factors. 3. Diabetes mellitus, type 2, uncontrolled; was on insulin drip. 4. Acute rhabdomyolysis with creatine kinase of 701. 5. Troponin 0.063, indeterminate. 6. Mild hyperkalemia. 7. Anemia, normocytic, possibly anemia of chronic disease. 8. Thrombocytopenia. 9. History of chronic obstructive pulmonary disease, acute exacerbation. 10. History of deep venous thrombosis. 11. Hypertension. 12. Hyperlipidemia. 13. History of right above-knee amputation. 14. History of popliteal bypass. 15. History of peripheral vascular disease. 16. History of nicotine dependence, continued, ongoing. 17. Chronic kidney disease, stage IV, with acute non-oliguric kidney failure. 18. NO CODE, NO CPR, NO VENT RECOMMENDATIONS AND DISCUSSION: I recommend to continue with the current medications, continue with symptomatic treatment, broad-spectrum IV antibiotics, bronchodilators, steroids. Prognosis guarded because of multiple complex medical issues. Further recommendations to follow. I have also requested Cardiology and Nephrology to evaluate the patient.
[2016-04-19 16:49] LABS: Glucose,Whole Blood 184 mg/dL (75-99)
[2016-04-19] MEDS: WARFARIN 10 MG TAB PO SCH (17:51)
[2016-04-19 18:25] LABS: Glucose,Whole Blood 158 mg/dL (75-99)
[2016-04-19 20:31] LABS: Glucose,Whole Blood 152 mg/dL (75-99)
[2016-04-19] MEDS: ATORVASTATIN 80 MG TAB PO SCH (21:50)
[2016-04-19] MEDS: NIACIN TR 500 MG CAPSULE.ER PO SCH (21:50)
[2016-04-19 23:00] LABS: Glucose,Whole Blood 197 mg/dL (75-99)
[2016-04-20] MEDS: HEPARIN SODIUM,PORCINE 5,000 UNIT/ML 1 ML VIAL SQ SCH ×2 (00:13→07:48)
[2016-04-20] MEDS: methylPREDNISolone SOD SUCCI 40 MG/ML 1 ML VIAL IV SCH ×3 (00:13→12:20)
[2016-04-20 00:31] LABS: Glucose,Whole Blood 204 mg/dL (75-99)
[2016-04-20] MEDS: IPRATROPIUM-ALBUTEROL 3 ML NEB INHALATION SCH ×4 (01:35→12:04)
[2016-04-20 02:41] LABS: Glucose,Whole Blood 161 mg/dL (75-99)
[2016-04-20 04:35] LABS: Glucose,Whole Blood 149 mg/dL (75-99)
[2016-04-20 06:23] LABS: Glucose,Whole Blood 184 mg/dL (75-99)
[2016-04-20] MEDS: SODIUM CHLORIDE 0.9% 1,000 ML IV SCH (07:46)
[2016-04-20] MEDS: PANTOPRAZOLE 40 MG TABLET PO SCH (07:48)
[2016-04-20] MEDS: amLODIPine 10 MG TAB PO SCH (07:49)
[2016-04-20] MEDS: MAGNESIUM OXIDE 400 MG TAB PO SCH (07:49)
[2016-04-20] MEDS: GABAPENTIN 400 MG CAP PO SCH (07:49)
[2016-04-20] MEDS: ASPIRIN 81 MG CHEW PO SCH (07:49)
[2016-04-20] MEDS: SODIUM BICARBONATE TAB 650 MG TAB PO SCH (07:50)
[2016-04-20] MEDS: NICOTINE 14MG/24HR PATCH TRANSDERM SCH (07:50)
[2016-04-20] MEDS: INSULIN LISPRO (humaLOG) 300 UNIT/3 ML VIAL SQ SCH (07:51)
[2016-04-20 07:53] VITALS: BP 111/51; RESP 18; TEMP 98.3
[2016-04-20] MEDS: OSELTAMIVIR 60 MG/10 ML ORAL SYRINGE PO SCH (08:00)
[2016-04-20] MEDS: INSULIN REGULAR 100 UNIT in SODIUM CHLORIDE 0.9% 100 ML IV SCH (08:10)
[2016-04-20 08:14] LABS: Glucose,Whole Blood 215 mg/dL (75-99)
[2016-04-20 08:21] LABS: INR 3.3 (<1.1); Prothrombin Time 31.8 sec (9.0-12.0)
[2016-04-20 08:24] LABS: Basophils % (A) 0 %; CH 30.5; CHCM 31.5; Eosinophils % (A) 0 %; HCT 27.6 % (39.0-53.0); HDW 3.18; HGB 8.7 gm/dL (13.0-17.5); Hypochromasia Slight; Luc # (Auto) 0.12; Luc % (Auto) 1; Lymphocytes # (A) 0.6 k/uL (1.0-4.8); Lymphocytes % (A) 3 %; MCH 30.6 pg (25.0-35.0); MCHC 31.4 g/dL (31.0-37.0); MCV 97.5 fL (80.0-100.0); Mean Platelet Volume 7.2; Monocytes # (A) 0.4 k/uL (0-1.0); Monocytes % (A) 2 %; Neutrophils # (A) 21.5 k/uL (1.3-7.7); Neutrophils % (A) 95 %; RBC 2.84 m/uL (4.30-5.90); RDW 15.4 % (11.5-15.5); WBC 22.6 k/uL (3.8-10.6); WBC (Perox) 24.19
[2016-04-20 08:54] LABS: Calcium 8.6 mg/dL (8.4-10.2); Potassium 5.8 mmol/L (3.5-5.1)
[2016-04-20] MEDS: SYMBICORT 160-4.5 MCG INHALER INHALATION SCH (09:11)
[2016-04-20 10:33] LABS: Glucose,Whole Blood 257 mg/dL (75-99)
[2016-04-20] MEDS ORDERED: SODIUM POLYSTYRENE SULFONATE 15 GM/60 ML BOTTLE PO STA (11:39)
[2016-04-20 12:15] VITALS: PULSE 96
[2016-04-20 12:16] LABS: Glucose,Whole Blood 175 mg/dL (75-99)
[2016-04-20] MEDS: LEVOFLOXACIN 500MG-D5W PMX 500 MG in DEXTROSE/WATER 1 100ML.BAG IVPB SCH (12:18)
[2016-04-20] MEDS ORDERED: INSULIN LISPRO (humaLOG) 300 UNIT/3 ML VIAL SQ SCH (12:30)
--- NOTE | 2016-04-20 17:47 | PN ---
Patient is seen for followup for acute kidney injury. He was admitted to the hospital with complaints of fever and cough. He does have CKD stage IV with a previous creatinine of 2.26 in 2015. Currently patient states he is feeling better. On examination, blood pressure is 111/51, heart rate 72 per minute. He is afebrile. EXAMINATION OF THE HEART: S1 and S2. EXAMINATION OF LUNGS: Bilateral breath sounds are heard. Decreased breath sounds in the bases. ABDOMEN: Soft, nontender. Examination of lower extremities shows no evidence of edema. DRUM TESTER exam is grossly intact. Labs show sodium 139, potassium 5.8, BUN 63, serum creatinine 2.98. Hemoglobin 8.7 g/dL. ASSESSMENT: 1. Chronic kidney disease, stage IV, being followed by a molder hand out of the [facility] area. 2. Hypertension, currently controlled. 3. Hyperkalemia in a patient with stage IV chronic kidney disease. Patient has received Kayexalate. He needs to be maintained on a low-potassium diet and consider discontinuation of ALEXANDRA inhibitors as outpatient. 4. Influenza A, symptomatically improved. PLAN: Patient will need to hold off on the ALEXANDRA inhibitors as outpatient secondary to hyperkalemia. Monitor renal function and follow up as outpatient with Nephrology.
--- NOTE | 2016-04-21 08:11 | DS ---
DATE OF ADMISSION: 04/17/2016 DATE OF DISCHARGE: 04/20/2016 DATE OF SERVICE: 04/20/2016 FINAL DIAGNOSES: 1. Acute influenza A with possible sepsis, present on admission. 2. Acute renal failure, severe, with possible acute on chronic kidney disease, stage III secondary to prerenal factors. 3. Diabetes mellitus type 2, uncontrolled, on insulin drip. 4. Acute rhabdomyolysis with creatine kinase 701. 5. Troponin 0.063, indeterminate. 6. Mild hyperkalemia. 7. Anemia, normocytic, anemia of chronic disease. 8. Thrombocytopenia. 9. History of chronic obstructive pulmonary disease, acute exacerbation. 10. History of deep venous thrombosis. 11. Hypertension. 12. Hyperlipidemia. 13. History of right above knee amputation. 14. History of popliteal bypass. 15. History of peripheral vascular disease. 16. History of nicotine dependence, continued ongoing. 17. Chronic kidney disease stage IV with acute nonoliguric kidney failure history. 18. NO CODE, NO CPR, NO VENT. DISCHARGE DISPOSITION: The patient will be discharged in stable condition with guarded prognosis. HISTORY OF PRESENT ILLNESS: This 66-year-old gentleman with a past medical history of multiple medical problems admitted with features of acute influenza A, acute on chronic renal failure and multiple other medical problems treated symptomatically. Patient improved significantly. White count is elevated but rather stable at this time. On exam, vitals are stable. CARDIOVASCULAR SYSTEM: S1, S2 muffled. RESPIRATORY: A few scattered rhonchi. ABDOMEN: Soft. NERVOUS SYSTEM: No focal deficits. Labs are creatinine 2.9 WBC 22.6, hemoglobin 8.7. DISCHARGE ADVICE: 1. Diet is cardiac. 2. Activity limited until followup. 3. Follow up with Dr. Alvarez in 2 to 3 days in the [facility]. 4. Follow up with Dr. Wright and Dr. Baig as advised. Medications are: 1. Lipitor 80 mg q.h.s. 2. Symbicort 160/4.5 two puffs b.i.d. 3. Neurontin 400 mg p.o. t.i.d. 4. Hydrocodone 5 mg q.6 p.r.n. 5. Levaquin 250 mg p.o. daily. 6. Magnesium oxide 400 mg p.o. daily. 7. Niacin TR 1000 mg q.h.s. 8. Habitrol 1 daily 14. 9. Tamiflu 30 mg p.o. daily to complete the course, 3 more days 10. Sodium bicarb 650 p.o. b.i.d. 11. Coumadin hold for 2 days and then continue to monitor, resume the home dose. CBC, BMP, PT/INR in the outpatient setting with Dr. Alvarez. 12. Norvasc 10 mg daily. 13. Prednisone taper dose, that is 40 mg daily for 3 days, 30 for 3 days, 20 for 3 days, 10 for 3 days and then discontinue. MTDD
[2016-04-21] MEDS ORDERED: LEVOFLOXACIN 250 MG TAB PO SCH (09:00)
== END 2016-04-20 14:48 | disposition home health service (06) | DRG 872 ==
LOC: EC 15:20 → 6SEL 17:20 → 5MS5E 04-18 14:55
PROVIDERS: ADMIT Hospitalist; ATTEND Hospitalist
DX: A41.89 Other specified sepsis (principal); N17.9 Acute kidney failure, unspecified; E87.2 Acidosis; J80 Acute respiratory distress syndrome; D69.6 Thrombocytopenia, unspecified; N18.4 Chronic kidney disease, stage 4 (severe); M62.82 Rhabdomyolysis; I13.0 Hypertensive heart and chronic kidney disease with heart failure and stage 1 through stage 4 chronic kidney disease, or unspecified chronic kidney disease; I50.9 Heart failure, unspecified; E11.22 Type 2 diabetes mellitus with diabetic chronic kidney disease; E87.5 Hyperkalemia; E11.65 Type 2 diabetes mellitus with hyperglycemia; J44.9 Chronic obstructive pulmonary disease, unspecified; Z89.611 Acquired absence of right leg above knee; J10.1 Influenza due to other identified influenza virus with other respiratory manifestations; D63.8 Anemia in other chronic diseases classified elsewhere; F17.200 Nicotine dependence, unspecified, uncomplicated; E78.5 Hyperlipidemia, unspecified; E11.51 Type 2 diabetes mellitus with diabetic peripheral angiopathy without gangrene; Z86.718 Personal history of other venous thrombosis and embolism; Z79.01 Long term (current) use of anticoagulants; Z79.82 Long term (current) use of aspirin; Z79.899 Other long term (current) drug therapy
CPT/HCPCS: 36415; 71020; 76770; 80048; 80053; 81001; 82550; 82553; 82728; 83036; 83540; 83550; 83735; 83880; 84484; 85025; 85610; 85730; 87040; 87086; 87502; 93005; 93306; 94640; 96374; 99291

== ENCOUNTER 2016-05-18 12:10 | Emergency (ER) | payer OTHER ==
[2016-05-18 12:36] VITALS: BP 144/67; PULSE 100; RESP 20
--- NOTE | 2016-05-18 14:21 | ED ---
Fall HPI - General Chief Complaint: Fall Stated Complaint: Fall Time Seen by Provider: 05/18/16 14:05 Source: patient, RN notes reviewed Mode of arrival: wheelchair - History of Present Illness Initial Comments: Patient is 66-year-old male presents emergency room for evaluation of fall and injury. Patient states yesterday he was going down the steps in the railing gave out and he fell down 4 steps. Patient denies head trauma. Patient states he's having pain in his left cano. Patient has a right [id number] amputation. Patient states he's having pain at the stump of his right leg. Patient also states he has an abrasion over his right forearm. Patient states he was advised by his family to come to the emergency room to make sure he did not fracture anything. Patient denies headache, dizziness, neck pain, back pain , shortness of breath. Patient denies any other injuries during incident. - Related Data Home Medications Medication Instructions Recorded Confirmed Gabapentin [Neurontin] 400 mg PO TID 11/22/14 05/18/16 Atorvastatin [Lipitor] 80 mg PO HS 04/17/16 05/18/16 amLODIPine [Norvasc] 10 mg PO DAILY 04/17/16 05/18/16 Previous Rx's Medication Instructions Recorded Budesonide-Formot 160-4.5 Mcg 2 puff INHALATION RT-BID #1 puff 04/20/16 [Symbicort 160-4.5 Mcg Inhaler] HYDROcodone/APAP 5-325MG [[place] 1 each PO Q6HR PRN #20 tab 04/20/16 5-325] Levofloxacin [Levaquin] 250 mg PO DAILY #5 tab 04/20/16 Magnesium Oxide [Mag-Ox] 400 mg PO DAILY #1 tab 04/20/16 Niacin Tr [Niacin TR] 1,000 mg PO HS capsule.er 04/20/16 Nicotine 14Mg/24Hr Patch [Habitrol] 1 patch TRANSDERM DAILY #30 patch 04/20/16 Oseltamivir 6Mg/ml Oral Susp 30 mg PO DAILY #3 oral.syrg 04/20/16 [Tamiflu] Sodium Bicarbonate Tab 650 mg PO BID #28 tab 04/20/16 Warfarin [Coumadin] 10 mg PO DAILY@1800 #1 tab 04/20/16 predniSONE 10 mg PO DIRECTED #30 tab 04/20/16 Acetaminophen with Codeine 1 tab PO Q4H PRN #12 tab 05/18/16 [Tylenol w/codeine #3] Allergies Allergy/AdvReac Type Severity Reaction Status Date / Time No Known Allergies Allergy Verified 05/18/16 12:36 Review of Systems ROS Statement: Those systems with pertinent positive or pertinent negative responses have been documented in the HPI. ROS Other: All systems not noted in ROS Statement are negative. Past Medical History Past Medical History: COPD, Diabetes Mellitus, Deep Vein Thrombosis (DVT), Hyperlipidemia, Hypertension, Renal Disease History of Any Multi-Drug Resistant Organisms: None Reported Additional Past Surgical History / Comment(s): right aka, fem pop Past Anesthesia/Blood Transfusion Reactions: No Reported Reaction Past Psychological History: No Psychological Hx Reported Smoking Status: Current every day smoker Past Alcohol Use History: None Reported Additional Past Alcohol Use History / Comment(s): Smokes 1pack a day. Drinks a beer on occasion. Lives at home alone with 1 dog and 2 cats Past Drug Use History: None Reported - Past Family History Father History Unknown: Yes Additional Family Medical History / Comment(s): from blood clot back in 1968 Mother History Unknown: Yes Additional Family Medical History / Comment(s): at 94 General Exam - General Exam Comments Initial Comments: Sitting on exam bed, no acute distress. Limitations: physical limitation General appearance: alert, in no apparent distress Head exam: Present: atraumatic, normocephalic, normal inspection Eye exam: Present: normal appearance, PERRL, EOMI Pupils: Present: normal accommodation ENT exam: Present: normal exam Neck exam: Present: normal inspection Respiratory exam: Present: normal lung sounds bilaterally. Absent: respiratory distress Cardiovascular Exam: Present: regular rate, normal rhythm, normal heart sounds Right Forearm Wrist exam: Present: full ROM, abrasion (Superficial abrasion over her proximal right forearm). Absent: tenderness Neuro motor exam: Present: wrist extension intact, thumb opposition intact, thumb IP flexion intact, thumb adduction intact, fingers 2-5 abduction intact Vascular: Present: normal capillary refill (Capillary refill less than 2 seconds ), radial pulse (2+), ulnar pulse (2+) Left Lower Leg exam: Present: tenderness, swelling (Hematoma over the anterior mid cano) Neurovascular tendon exam: Present: no vascular compromise. Absent: pulse deficit (2+ dorsal pedal and posterior tibial pulses), abnormal cap refill ( Capillary refill less than 2 seconds) Right Upper Leg exam: Present: tenderness (Tenderness and slight ecchymosis at the distal femur). Absent: normal inspection ([id number] amputation) Back exam: Present: normal inspection Neurological exam: Present: alert, oriented X3, CN II-XII intact Psychiatric exam: Present: normal affect, normal mood Skin exam: Present: warm, dry, intact, normal color. Absent: rash Course Vital Signs 05/18/16 12:33 Temperature 97.9 F Pulse Rate 100 Respiratory 20 Rate Blood Pressure 144/67 O2 Sat by Pulse 100 Oximetry Medical Decision Making - Medical Decision Making Patient is a 66-year-old male presents to the emergency room for full injury. Patient does have an abrasion on right forearm. Patient declined x-ray for right arm. Patient also has a hematoma over left cano. Patient does have a small area of ecchymosis over the right stump of amputated leg. X-rays negative for acute fractures. Will send patient home with pain medications and advised to follow-up with primary care provider for reevaluation of left cano hematoma. Patient states he understands everything that was discussed with him. Return parameters discussed. Case discussed with Dr. Martinez. - Radiology Data Radiology results: report reviewed, image reviewed Disposition Clinical Impression: Fall, Traumatic hematoma of left lower leg, Contusion of right lower extremity , Abrasion of right forearm Disposition: HOME SELF-CARE Condition: Good Instructions: Hematoma (ED), Contusion in Adults (ED) Additional Instructions: Ice on and off for 10-15 minutes for the next 24-48 hours. Take medications as needed for pain. Please follow-up with primary care provider in 24-48 hours for reevaluation. If new symptoms develop or symptoms worsen, please return to the ER. Prescriptions: Acetaminophen with Codeine [Tylenol w/codeine #3] 1 tab PO Q4H PRN #12 tab PRN Reason: Pain Referrals: Amos Alvarez DO [Primary Care Provider] - 1-2 days Time of Disposition: 14:59
--- NOTE | 2016-05-18 14:40 | XR ---
EXAMINATION TYPE: XR tibia fibula LT DATE OF EXAM: 05/18/2016 2:36 PM COMPARISON: NONE HISTORY: Pain TECHNIQUE: Two views are submitted. FINDINGS: The osseous structures are intact. The joint spaces are preserved. Surgical clips are noted and the re is diffuse osteopenia. Soft tissue edema noted. Rounded density adjacent to lateral malleolus appe ars corticated and suggestive of remote trauma. Calcaneal spurs noted. Vascular calcification seen so ft tissue ossification of the popliteal fossa. IMPRESSION: 1. No acute osseous abnormality.
--- NOTE | 2016-05-18 14:44 | XR ---
EXAMINATION TYPE: XR femur RT DATE OF EXAM: 05/18/2016 2:36 PM COMPARISON: 11/22/2014 HISTORY: Pain TECHNIQUE: 3 views of the right femur FINDINGS: Severe diffuse osteopenia. Vascular calcifications and surgical clips. Arthropathy of the h ip joint. Previous surgical amputation noted. Deformity of the neck of the femur may be chronic.. IMPRESSION: 1. There is subtle deformity of the lateral margin of the neck of the femur. This is stable relative to the exam of 2014 and likely related to previous trauma.
[2016-05-18 15:17] VITALS: TEMP 98.2
== END 2016-05-18 15:14 | disposition home or self-care (01) ==
LOC: EC 12:10
DX: S80.12XA Contusion of left lower leg, initial encounter (principal); S80.11XA Contusion of right lower leg, initial encounter; S50.811A Abrasion of right forearm, initial encounter; E78.5 Hyperlipidemia, unspecified; I10 Essential (primary) hypertension; Z79.899 Other long term (current) drug therapy; F17.200 Nicotine dependence, unspecified, uncomplicated; W10.9XXA Fall (on) (from) unspecified stairs and steps, initial encounter
CPT/HCPCS: 99284

== ENCOUNTER → 2016-06-01 | Outpatient (CLI) | payer OTHER ==
--- NOTE | 2016-06-01 14:24 | US ---
EXAMINATION TYPE: US venous doppler duplex LE LT DATE OF EXAM: 06/01/2016 1:17 PM COMPARISON: NONE CLINICAL HISTORY: M79.605 LEFT LEG PAIN. Injury to left anterior cano 2 weeks ago, obvious large red lump, h/o arterial clot in right leg and has right leg amputation. SIDE PERFORMED: Left TECHNIQUE: The lower extremity deep venous system is examined utilizing real time linear array sonog craig with graded compression, doppler sonography and color-flow sonography. VESSELS IMAGED: External Iliac Vein (EIV) Common Femoral Vein Deep Femoral Vein Greater Saphenous Vein * Femoral Vein Popliteal Vein Small Saphenous Vein * Proximal Calf Veins (* superficial vessels) There may be some increased signal within the graft identified during this examination. This area is not evaluated and artifact versus narrowing or occlusion of the graft cannot be evaluated. Left Leg: Appears negative for DVT 5.4cm+ probable hematoma seen at injury site on anterior left s hin *tech impression to Gina at office @1:20 IMPRESSION: 1. No deep venous thrombosis. 2. Hematoma at injury site
== END | disposition home or self-care (01) ==
LOC: RADUSWWP 12:37
PROVIDERS: ATTEND Family Medicine
DX: S80.12XA Contusion of left lower leg, initial encounter (principal); X58.XXXA Exposure to other specified factors, initial encounter

== ENCOUNTER 2016-06-08 16:42 | Emergency (ER) | payer OTHER ==
[2016-06-08 17:08] VITALS: RESP 16
[2016-06-08] MEDS ORDERED: SODIUM CHLORIDE 0.9% 1,000 ML IV STA (17:19)
--- NOTE | 2016-06-08 17:21 | ED ---
General Adult HPI - General Chief complaint: Recheck/Abnormal Lab/Rx Stated complaint: Abnormal Labs Time Seen by Provider: 06/08/16 17:12 Source: patient, RN notes reviewed Mode of arrival: wheelchair Limitations: no limitations - History of Present Illness Initial comments: 66-year-old male who presents emergency room today with a chief complaint of abnormal labs. He does admit that he [facility] States he called today and told that he had an elevated potassium. 5. States he was told that she will use a 0.3. Patient states she's never had a blood transfusion in the past. He does admit that he is on blood thinners due to "thick blood". Patient states not noticed any changes in bowel habits. Denies any signs of blood. Denies any dark bowel movements. Patient denies any other complaints. Patient denies any recent fever, chills, shortness of breath, chest pain, back pain, abdominal pain, nausea or vomiting, numbness or tingling, dysuria or hematuria, constipation or diarrhea, headaches or visual changes, or any other complaints. - Related Data Home Medications Medication Instructions Recorded Confirmed Gabapentin [Neurontin] 400 mg PO TID 11/22/14 05/18/16 Atorvastatin [Lipitor] 80 mg PO HS 04/17/16 05/18/16 amLODIPine [Norvasc] 10 mg PO DAILY 04/17/16 05/18/16 Previous Rx's Medication Instructions Recorded Budesonide-Formot 160-4.5 Mcg 2 puff INHALATION RT-BID #1 puff 04/20/16 [Symbicort 160-4.5 Mcg Inhaler] HYDROcodone/APAP 5-325MG [[place] 1 each PO Q6HR PRN #20 tab 04/20/16 5-325] Levofloxacin [Levaquin] 250 mg PO DAILY #5 tab 04/20/16 Magnesium Oxide [Mag-Ox] 400 mg PO DAILY #1 tab 04/20/16 Niacin Tr [Niacin TR] 1,000 mg PO HS capsule.er 04/20/16 Nicotine 14Mg/24Hr Patch [Habitrol] 1 patch TRANSDERM DAILY #30 patch 04/20/16 Oseltamivir 6Mg/ml Oral Susp 30 mg PO DAILY #3 oral.syrg 04/20/16 [Tamiflu] Sodium Bicarbonate Tab 650 mg PO BID #28 tab 04/20/16 Warfarin [Coumadin] 10 mg PO DAILY@1800 #1 tab 04/20/16 predniSONE 10 mg PO DIRECTED #30 tab 04/20/16 Acetaminophen with Codeine 1 tab PO Q4H PRN #12 tab 05/18/16 [Tylenol w/codeine #3] Allergies Allergy/AdvReac Type Severity Reaction Status Date / Time No Known Allergies Allergy Verified 06/08/16 18:20 Review of Systems ROS Statement: Those systems with pertinent positive or pertinent negative responses have been documented in the HPI. ROS Other: All systems not noted in ROS Statement are negative. Past Medical History Past Medical History: COPD, Diabetes Mellitus, Deep Vein Thrombosis (DVT), Hyperlipidemia, Hypertension, Renal Disease History of Any Multi-Drug Resistant Organisms: None Reported Additional Past Surgical History / Comment(s): right aka, fem pop Past Anesthesia/Blood Transfusion Reactions: No Reported Reaction Past Psychological History: No Psychological Hx Reported Smoking Status: Current every day smoker Past Alcohol Use History: None Reported Additional Past Alcohol Use History / Comment(s): Smokes 1pack a day. Drinks a beer on occasion. Lives at home alone with 1 dog and 2 cats Past Drug Use History: None Reported - Past Family History Father History Unknown: Yes Additional Family Medical History / Comment(s): from blood clot back in 1968 Mother History Unknown: Yes Additional Family Medical History / Comment(s): at 94 General Exam - General Exam Comments Initial Comments: General: The patient is awake and alert, in no distress, and does not appear acutely ill. Eye: Pupils are equal, round and reactive to light, extra-ocular movements are intact. No nystagmus. There is normal conjunctiva bilaterally. No signs of icterus. Ears, nose, mouth and throat: There are moist mucous membranes and no oral lesions. Neck: The neck is supple, there is no tenderness or JVD. Cardiovascular: There is a regular rate and rhythm. No murmur, rub or gallop is appreciated. Respiratory: Lungs are clear to auscultation, respirations are non-labored, breath sounds are equal. No wheezes, stridor, rales, or rhonchi. Gastrointestinal: Soft, non-distended, non-tender abdomen without masses or organomegaly noted. There is no rebound or guarding present. No CVA tenderness. Bowel sounds are unremarkable. 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 Normal ROM, no tenderness. Strength 5/5. Sensation intact. Pulses equal bilaterally 2+. Neurological: A&O x 3. CN II-XII intact, There are no obvious motor or sensory deficits. Coordination appears grossly intact. Speech is normal. Skin: Skin is warm and dry and no rashes or lesions are noted. Psychiatric: Cooperative, appropriate mood & affect, normal judgment. Limitations: no limitations Course Vital Signs 06/08/16 06/08/16 17:04 18:07 Temperature 97.0 F L Pulse Rate 98 92 Respiratory 16 16 Rate Blood Pressure 164/73 153/97 O2 Sat by Pulse 100 100 Oximetry EKG Findings - EKG Comments: EKG Findings:: EKG performed at 1741: Shows normal sinus rhythm at 96 bpm. NE interval 190. QRS 74. QT/QTC 380/480. No acute ST changes. Medical Decision Making - Medical Decision Making Patient reexamined at this time shows no signs of distress. Currently eating a sandwich in the room. Patient's potassium 5.0. Patient's hemoglobin 8.2. Patient's guaiac negative. Patient's INR 2.1. Patient denies any symptoms here in the emergency room. Patient does have elevated renal function compared To previous and shows same. Case was discussed in detail with attending physician Dr. Martinez. Patient will be discharged home advised follow-up family doctor for repeat labs over the next 2-3 days. Advised return if any symptoms increase or worsen or for any other concerns. Patient states understanding and is in agreement. - Lab Data Result diagrams: 06/08/16 17:38 06/08/16 17:38 Lab Results 06/08/16 06/08/16 06/08/16 Range/Units 17:38 17:38 17:38 WBC 10.8 H (3.8-10.6) k/uL RBC 2.71 L (4.30-5.90) m/uL Hgb 8.2 L (13.0-17.5) gm/dL Hct 25.5 L (39.0-53.0) % MCV 94.1 (80.0-100.0) fL MCH 30.1 (25.0-35.0) pg MCHC 31.9 (31.0-37.0) g/dL RDW 15.6 H (11.5-15.5) % Plt Count 330 D (150-450) k/uL Neutrophils % 80 % Lymphocytes % 13 % Monocytes % 4 % Eosinophils % 2 % Basophils % 0 % Neutrophils # 8.6 H (1.3-7.7) k/uL Lymphocytes # 1.4 (1.0-4.8) k/uL Monocytes # 0.4 (0-1.0) k/uL Eosinophils # 0.2 (0-0.7) k/uL Basophils # 0.0 (0-0.2) k/uL Hypochromasia Slight PT 20.3 H (9.0-12.0) sec INR 2.1 (<1.1) APTT 30.4 H (22.0-30.0) sec Sodium 144 (137-145) mmol/L Potassium 5.0 (3.5-5.1) mmol/L Chloride 109 H (98-107) mmol/L Carbon Dioxide 24 (22-30) mmol/L Anion Gap 11 mmol/L BUN 33 H (9-20) mg/dL Creatinine 2.33 H (0.66-1.25) mg/dL Est GFR (MDRD) Af Amer 34 (>60 ml/min/1.73 sqM) Est GFR (MDRD) Non-Af 28 (>60 ml/min/1.73 sqM) Glucose 240 H (74-99) mg/dL Calcium 8.9 (8.4-10.2) mg/dL Total Bilirubin 0.5 (0.2-1.3) mg/dL AST 17 (17-59) U/L ALT 20 L (21-72) U/L Alkaline Phosphatase 129 H (38-126) U/L Total Protein 6.2 L (6.3-8.2) g/dL Albumin 3.6 (3.5-5.0) g/dL Stool Occult Blood (Negative) 06/08/16 Range/Units 18:15 WBC (3.8-10.6) k/uL RBC (4.30-5.90) m/uL Hgb (13.0-17.5) gm/dL Hct (39.0-53.0) % MCV (80.0-100.0) fL MCH (25.0-35.0) pg MCHC (31.0-37.0) g/dL RDW (11.5-15.5) % Plt Count (150-450) k/uL Neutrophils % % Lymphocytes % % Monocytes % % Eosinophils % % Basophils % % Neutrophils # (1.3-7.7) k/uL Lymphocytes # (1.0-4.8) k/uL Monocytes # (0-1.0) k/uL Eosinophils # (0-0.7) k/uL Basophils # (0-0.2) k/uL Hypochromasia PT (9.0-12.0) sec INR (<1.1) APTT (22.0-30.0) sec Sodium (137-145) mmol/L Potassium (3.5-5.1) mmol/L Chloride (98-107) mmol/L Carbon Dioxide (22-30) mmol/L Anion Gap mmol/L BUN (9-20) mg/dL Creatinine (0.66-1.25) mg/dL Est GFR (MDRD) Af Amer (>60 ml/min/1.73 sqM) Est GFR (MDRD) Non-Af (>60 ml/min/1.73 sqM) Glucose (74-99) mg/dL Calcium (8.4-10.2) mg/dL Total Bilirubin (0.2-1.3) mg/dL AST (17-59) U/L ALT (21-72) U/L Alkaline Phosphatase (38-126) U/L Total Protein (6.3-8.2) g/dL Albumin (3.5-5.0) g/dL Stool Occult Blood Negative (Negative) Disposition Clinical Impression: Anemia Disposition: HOME SELF-CARE Condition: Good Instructions: Anemia (ED) Additional Instructions: Please use medication as discussed. Please follow-up with family doctor in the next 2 days. Please return to emergency room if the symptoms increase or worsen or for any other concerns. Time of Disposition: 18:47
[2016-06-08 17:46] LABS: Basophils % (A) 0 %; CHCM 32.1; Eosinophils # (A) 0.2 k/uL (0-0.7); Eosinophils % (A) 2 %; HCT 25.5 % (39.0-53.0); HDW 3.19; HGB 8.2 gm/dL (13.0-17.5); Hypochromasia Slight; Luc # (Auto) 0.15; Luc % (Auto) 1; Lymphocytes # (A) 1.4 k/uL (1.0-4.8); Lymphocytes % (A) 13 %; MCH 30.1 pg (25.0-35.0); MCHC 31.9 g/dL (31.0-37.0); MCV 94.1 fL (80.0-100.0); Mean Platelet Volume 7.4; Monocytes # (A) 0.4 k/uL (0-1.0); Monocytes % (A) 4 %; Neutrophils # (A) 8.6 k/uL (1.3-7.7); Neutrophils % (A) 80 %; RBC 2.71 m/uL (4.30-5.90); RDW 15.6 % (11.5-15.5); WBC 10.8 k/uL (3.8-10.6); WBC (Perox) 10.09
[2016-06-08 17:56] LABS: INR 2.1 (<1.1); Partial Thromboplastin Time 30.4 sec (22.0-30.0); Prothrombin Time 20.3 sec (9.0-12.0)
[2016-06-08 18:24] VITALS: BP 153/97; PULSE 92
[2016-06-08 18:36] LABS: Calcium 8.9 mg/dL (8.4-10.2); Total Bilirubin 0.5 mg/dL (0.2-1.3); Total Protein 6.2 g/dL (6.3-8.2)
[2016-06-08 18:58] VITALS: TEMP 98.1
[2016-06-08 19:15] LABS: Appearance,Urine Clear (Clear); Bilirubin,Urine Negative (Negative); Glucose,Urine (UA) 2+ (Negative); Ketones,Urine Negative (Negative); Leukocyte Esterase,Urine Negative (Negative); Mucus,Urine Rare /hpf; Nitrite,Urine Negative (Negative); Particle Count 895; Protein,Urine 3+ (Negative); RBC,Urine 6 /hpf (0-5); UA Billing (MACRO vs. MICRO) MICRO; Urobilinogen,Urine <2.0 mg/dL (<2.0); WBC,Urine 1 /hpf (0-5)
== END 2016-06-08 18:58 | disposition home or self-care (01) ==
LOC: EC 16:42
DX: D64.9 Anemia, unspecified (principal); E78.5 Hyperlipidemia, unspecified; I10 Essential (primary) hypertension; F17.200 Nicotine dependence, unspecified, uncomplicated
CPT/HCPCS: 36415; 80053; 81001; 82272; 85025; 85610; 85730; 93005; 96360; 99283

== ENCOUNTER 2016-06-16 09:17 | Emergency (ER) | payer OTHER ==
--- NOTE | 2016-06-16 10:01 | ED ---
Recheck HPI - General Chief Complaint: Recheck/Abnormal Lab/Rx Stated Complaint: Abnormal labs Time Seen by Provider: 06/16/16 09:37 Source: patient, RN notes reviewed Mode of arrival: wheelchair Limitations: physical limitation - History of Present Illness Initial Comments: This a 66-year-old male presents emergency Department for low hemoglobin. Patient was seen here approximately one week ago for a low hemoglobin is 8.2 at that time. Patient's hemoglobin checked yesterday was 7.7. Patient states he has no heart history of the last few weeks of anemia. He states he has no rectal bleeding no hematuria. Patient is on blood thinners oh. Patient has chronic renal failure. Patient has had no prior transfusions. Patient states he does feel slightly fatigued but denies any dizziness, chest pain, shortness breath out of the usual, nausea, vomiting. - Related Data Home Medications Medication Instructions Recorded Confirmed Gabapentin [Neurontin] 400 mg PO TID 11/22/14 06/16/16 Atorvastatin [Lipitor] 80 mg PO HS 04/17/16 06/16/16 amLODIPine [Norvasc] 10 mg PO DAILY 04/17/16 06/16/16 Cephalexin [Keflex] 500 mg PO QID 06/16/16 06/16/16 Warfarin [Coumadin] 5 mg PO SUTUTHSA 06/16/16 06/16/16 Warfarin [Coumadin] 10 mg PO MOWEFR 06/16/16 06/16/16 Previous Rx's Medication Instructions Recorded Budesonide-Formot 160-4.5 Mcg 2 puff INHALATION RT-BID #1 puff 04/20/16 [Symbicort 160-4.5 Mcg Inhaler] Magnesium Oxide [Mag-Ox] 400 mg PO DAILY #1 tab 04/20/16 Niacin Tr [Niacin TR] 1,000 mg PO HS capsule.er 04/20/16 Sodium Bicarbonate Tab 650 mg PO BID #28 tab 04/20/16 Allergies Allergy/AdvReac Type Severity Reaction Status Date / Time No Known Allergies Allergy Verified 06/16/16 09:55 Review of Systems ROS Statement: Those systems with pertinent positive or pertinent negative responses have been documented in the HPI. ROS Other: All systems not noted in ROS Statement are negative. Past Medical History Past Medical History: COPD, Diabetes Mellitus, Deep Vein Thrombosis (DVT), Hyperlipidemia, Hypertension, Renal Disease History of Any Multi-Drug Resistant Organisms: None Reported Additional Past Surgical History / Comment(s): right aka, fem pop Past Anesthesia/Blood Transfusion Reactions: No Reported Reaction Past Psychological History: No Psychological Hx Reported Smoking Status: Current every day smoker Past Alcohol Use History: None Reported Additional Past Alcohol Use History / Comment(s): Smokes 1pack a day. Drinks a beer on occasion. Lives at home alone with 1 dog and 2 cats Past Drug Use History: None Reported - Past Family History Father History Unknown: Yes Additional Family Medical History / Comment(s): from blood clot back in 1968 Mother History Unknown: Yes Additional Family Medical History / Comment(s): at 94 General Exam Limitations: physical limitation General appearance: alert, in no apparent distress ENT exam: Present: normal exam, normal oropharynx, mucous membranes moist Neck exam: Present: normal inspection. Absent: tenderness, meningismus, lymphadenopathy Respiratory exam: Present: normal lung sounds bilaterally. Absent: respiratory distress, wheezes, rales, rhonchi, stridor Cardiovascular Exam: Present: regular rate, normal rhythm, normal heart sounds. Absent: systolic murmur, diastolic murmur, rubs, gallop, clicks Extremities exam: Present: other (Right leg amputation) Neurological exam: Present: alert, oriented X3, CN II-XII intact Skin exam: Present: warm, dry, intact, normal color. Absent: rash Course Vital Signs 06/16/16 09:28 Temperature 97.5 F L Pulse Rate 98 Respiratory 20 Rate Blood Pressure 135/68 O2 Sat by Pulse 100 Oximetry Medical Decision Making - Medical Decision Making 66-year-old male sent here for anemia. Patient had outpatient lab draw which showed hemoglobin 7.7. Hemoglobin is 8.5. Patient's will be discharged at this time with follow-up. Return parameters were discussed. - Lab Data Result diagrams: 06/16/16 10:03 06/16/16 10:03 Lab Results 06/16/16 06/16/16 06/16/16 Range/Units 10:03 10:03 10:03 WBC 11.2 H (3.8-10.6) k/uL RBC 2.80 L (4.30-5.90) m/uL Hgb 8.5 L (13.0-17.5) gm/dL Hct 27.2 L (39.0-53.0) % MCV 97.0 (80.0-100.0) fL MCH 30.4 (25.0-35.0) pg MCHC 31.3 (31.0-37.0) g/dL RDW 16.7 H (11.5-15.5) % Plt Count 310 (150-450) k/uL Neutrophils % 79 % Lymphocytes % 13 % Monocytes % 4 % Eosinophils % 3 % Basophils % 0 % Neutrophils # 8.8 H (1.3-7.7) k/uL Lymphocytes # 1.4 (1.0-4.8) k/uL Monocytes # 0.5 (0-1.0) k/uL Eosinophils # 0.3 (0-0.7) k/uL Basophils # 0.0 (0-0.2) k/uL Hypochromasia Moderate Anisocytosis Slight Macrocytosis Slight PT 16.5 H (9.0-12.0) sec INR 1.7 (<1.1) APTT 28.7 (22.0-30.0) sec Sodium 145 (137-145) mmol/L Potassium 5.1 (3.5-5.1) mmol/L Chloride 111 H (98-107) mmol/L Carbon Dioxide 24 (22-30) mmol/L Anion Gap 10 mmol/L BUN 30 H (9-20) mg/dL Creatinine 2.46 H (0.66-1.25) mg/dL Est GFR (MDRD) Af Amer 32 (>60 ml/min/1.73 sqM) Est GFR (MDRD) Non-Af 26 (>60 ml/min/1.73 sqM) Glucose 201 H (74-99) mg/dL Calcium 8.9 (8.4-10.2) mg/dL Total Bilirubin 0.4 (0.2-1.3) mg/dL AST 19 (17-59) U/L ALT 27 (21-72) U/L Alkaline Phosphatase 134 H (38-126) U/L Total Protein 6.4 (6.3-8.2) g/dL Albumin 3.7 (3.5-5.0) g/dL Disposition Clinical Impression: Anemia Disposition: HOME SELF-CARE Condition: Stable Instructions: Anemia (ED) Additional Instructions: Please return to the Emergency Department if symptoms worsen or any other concerns. Time of Disposition: 11:14
[2016-06-16 10:19] LABS: Anisocytosis Slight; Basophils % (A) 0 %; CHCM 31.1; Eosinophils # (A) 0.3 k/uL (0-0.7); Eosinophils % (A) 3 %; HCT 27.2 % (39.0-53.0); HDW 2.97; HGB 8.5 gm/dL (13.0-17.5); Hypochromasia Moderate; Luc # (Auto) 0.18; Luc % (Auto) 2; Lymphocytes # (A) 1.4 k/uL (1.0-4.8); Lymphocytes % (A) 13 %; MCH 30.4 pg (25.0-35.0); MCHC 31.3 g/dL (31.0-37.0); Macrocytosis Slight; Mean Platelet Volume 7.8; Monocytes # (A) 0.5 k/uL (0-1.0); Monocytes % (A) 4 %; Neutrophils # (A) 8.8 k/uL (1.3-7.7); Neutrophils % (A) 79 %; RDW 16.7 % (11.5-15.5); WBC 11.2 k/uL (3.8-10.6); WBC (Perox) 11.26
[2016-06-16 10:28] LABS: Calcium 8.9 mg/dL (8.4-10.2); INR 1.7 (<1.1); Partial Thromboplastin Time 28.7 sec (22.0-30.0); Potassium 5.1 mmol/L (3.5-5.1); Prothrombin Time 16.5 sec (9.0-12.0); Total Bilirubin 0.4 mg/dL (0.2-1.3); Total Protein 6.4 g/dL (6.3-8.2)
[2016-06-16 12:25] VITALS: BP 153/76; PULSE 92; RESP 18; TEMP 98.1
== END 2016-06-16 11:15 | disposition home or self-care (01) ==
LOC: EC 09:17
DX: D64.9 Anemia, unspecified (principal); R53.83 Other fatigue; E78.5 Hyperlipidemia, unspecified; I10 Essential (primary) hypertension; Z86.718 Personal history of other venous thrombosis and embolism; F17.200 Nicotine dependence, unspecified, uncomplicated; Z79.01 Long term (current) use of anticoagulants; Z79.899 Other long term (current) drug therapy
CPT/HCPCS: 36415; 80053; 85025; 85610; 85730; 99283

== ENCOUNTER 2017-08-03 16:27 | Emergency (ER) | payer OTHER ==
[2017-08-03 16:50] VITALS: BP 146/79; PULSE 99; RESP 18; TEMP 98.5
--- NOTE | 2017-08-03 18:47 | ED ---
Recheck HPI - General Source: patient Mode of arrival: ambulatory Limitations: no limitations <Ynes Dick - Last Filed: 08/03/17 20:47> <Awais Dale - Last Filed: 08/03/17 20:59> - General Chief Complaint: Recheck/Abnormal Lab/Rx Stated Complaint: Blood Transfusion-sent by Time Seen by Provider: 08/03/17 18:30 - History of Present Illness Initial Comments: 67-year-old male patient presents to the emergency department today at the request of his physician for blood transfusion. Patient states that he had labs drawn at the [facility] because he is supposed to undergo cataract surgery soon. States that they called and told him that his hemoglobin was 7.1 and a he needed to present to the emergency department for blood transfusion. Patient denies any obvious sources of bleeding, denies any hematochezia or melena. Denies any hemoptysis or hematuria. Patient does take Coumadin for vascular surgeries. Does have history of chronic kidney disease. Patient denies any chest pain, shortness of breath, weakness, dizziness, or fatigue. States he has never had a blood transfusion before. Patient denies any recent rash, fever, chills, abdominal pain, nausea, vomiting, diarrhea, constipation, back pain, numbness, tingling, dysuria, urinary urgency, urinary frequency, headache, visual changes, or any other complaints. (Ynes Dick) - Related Data Home Medications Medication Instructions Recorded Confirmed Atorvastatin [Lipitor] 80 mg PO DAILY 04/17/16 08/03/17 amLODIPine [Norvasc] 10 mg PO DAILY 04/17/16 08/03/17 Aspirin 325 mg PO DAILY 01/20/17 08/03/17 Ferrous Gluconate 324 mg PO DAILY 08/03/17 08/03/17 Furosemide [Lasix] 40 mg PO DAILY 08/03/17 08/03/17 Lisinopril [Zestril] 10 mg PO DAILY 08/03/17 08/03/17 Magnesium Oxide [Mag-Ox] 250 mg PO DAILY 08/03/17 08/03/17 Niacin [Slo-Niacin] 1,000 mg PO HS 08/03/17 08/03/17 Pregabalin [Lyrica] 50 mg PO BID 08/03/17 08/03/17 Warfarin [Coumadin] 5 mg PO DIRECTED 08/03/17 08/03/17 Previous Rx's Medication Instructions Recorded Budesonide-Formot 160-4.5 Mcg 2 puff INHALATION RT-BID #1 puff 04/20/16 [Symbicort 160-4.5 Mcg Inhaler] Sodium Bicarbonate Tab 650 mg PO BID #28 tab 04/20/16 Allergies Allergy/AdvReac Type Severity Reaction Status Date / Time No Known Allergies Allergy Verified 08/03/17 19:25 Review of Systems ROS Other: All systems not noted in ROS Statement are negative. <Ynes Dick - Last Filed: 08/03/17 20:47> ROS Other: All systems not noted in ROS Statement are negative. <Awais Dale - Last Filed: 08/03/17 20:59> ROS Statement: Those systems with pertinent positive or pertinent negative responses have been documented in the HPI. Past Medical History Past Medical History: COPD, Diabetes Mellitus, Deep Vein Thrombosis (DVT), Hyperlipidemia, Hypertension, Renal Disease History of Any Multi-Drug Resistant Organisms: None Reported Additional Past Surgical History / Comment(s): right aka, fem pop Past Anesthesia/Blood Transfusion Reactions: No Reported Reaction Past Psychological History: No Psychological Hx Reported Smoking Status: Current every day smoker Past Alcohol Use History: Occasional Past Drug Use History: None Reported - Past Family History Father History Unknown: Yes Additional Family Medical History / Comment(s): from blood clot back in 1968 Mother History Unknown: Yes Additional Family Medical History / Comment(s): at 94 <Ynes Dick - Last Filed: 08/03/17 20:47> General Exam Limitations: no limitations General appearance: alert, in no apparent distress, other (This is a well- developed, well-nourished adult male patient in no acute distress. Vital signs upon presentation are temperature 98.5F, pulse 99, respirations 18, blood pressure 146/79, pulse ox 99% on room air.) Eye exam: Present: normal appearance, PERRL, EOMI. Absent: scleral icterus, conjunctival injection, periorbital swelling ENT exam: Present: normal exam, normal oropharynx, mucous membranes moist Respiratory exam: Present: normal lung sounds bilaterally. Absent: respiratory distress, wheezes, rales, rhonchi, stridor Cardiovascular Exam: Present: regular rate, normal rhythm, normal heart sounds, other (Heart murmur). Absent: systolic murmur, diastolic murmur, rubs, gallop, clicks GI/Abdominal exam: Present: soft, normal bowel sounds. Absent: distended, tenderness, guarding, rebound, rigid Neurological exam: Present: alert, oriented X3, CN II-XII intact Psychiatric exam: Present: normal affect, normal mood Skin exam: Present: warm, dry, intact, normal color. Absent: rash <Ynes Dick - Last Filed: 08/03/17 20:47> Course <Ynes Dick - Last Filed: 08/03/17 20:47> <Awais Dale - Last Filed: 08/03/17 20:59> Vital Signs 08/03/17 16:48 Temperature 98.5 F Pulse Rate 99 Respiratory 18 Rate Blood Pressure 146/79 O2 Sat by Pulse 99 Oximetry - Reevaluation(s) Reevaluation #1: 08/03/17 and P supervision: I did personally do a [id number] evaluation the patient I did discuss the findings with the patient and the options. Patient was sent here for evaluation for hemoglobin 7.1 he did have heme positive brown stool. No other symptoms at this time. He was given the option of staying in the hospital for transfusion he is refusing at this time he will instead follow up outpatient with his doctors. He did demonstrate a 7.3 hemoglobin and evidence of chronic renal failure. He states he was told he has stage IV kidney disease. I do agree with the assessment I disagree with his plan but he does not want stay in hospital at this time. (Awais Dale) Medical Decision Making - Lab Data Result diagrams: 08/03/17 18:55 08/03/17 18:55 - EKG Data -: EKG Interpreted by Me <Ynes Dick - Last Filed: 08/03/17 20:47> - Lab Data Result diagrams: 08/03/17 18:55 08/03/17 18:55 <Awais Dale - Last Filed: 08/03/17 20:59> - Lab Data Lab Results 08/03/17 08/03/17 08/03/17 Range/Units 18:55 18:55 18:55 WBC 9.6 (3.8-10.6) k/uL RBC 2.80 L (4.30-5.90) m/uL Hgb 7.3 L (13.0-17.5) gm/dL Hct 23.7 L (39.0-53.0) % MCV 84.7 (80.0-100.0) fL MCH 26.1 (25.0-35.0) pg MCHC 30.9 L (31.0-37.0) g/dL RDW 16.0 H (11.5-15.5) % Plt Count 358 (150-450) k/uL Neutrophils % 76 % Lymphocytes % 15 % Monocytes % 5 % Eosinophils % 2 % Basophils % 0 % Neutrophils # 7.3 (1.3-7.7) k/uL Lymphocytes # 1.4 (1.0-4.8) k/uL Monocytes # 0.5 (0-1.0) k/uL Eosinophils # 0.2 (0-0.7) k/uL Basophils # 0.0 (0-0.2) k/uL Hypochromasia Moderate Poikilocytosis Slight Anisocytosis Slight PT 12.8 H (9.0-12.0) sec INR 1.4 H (<1.2) APTT 25.1 (22.0-30.0) sec Sodium 141 (137-145) mmol/L Potassium 5.0 (3.5-5.1) mmol/L Chloride 108 H (98-107) mmol/L Carbon Dioxide 19 L (22-30) mmol/L Anion Gap 14 mmol/L BUN 52 H (9-20) mg/dL Creatinine 3.70 H (0.66-1.25) mg/dL Est GFR (CKD-EPI)AfAm 18 (>60 ml/min/1.73 sqM) Est GFR (CKD-EPI)NonAf 16 (>60 ml/min/1.73 sqM) Glucose 132 H (74-99) mg/dL Calcium 8.8 (8.4-10.2) mg/dL Total Bilirubin 0.3 (0.2-1.3) mg/dL AST 13 L (17-59) U/L ALT 20 L (21-72) U/L Alkaline Phosphatase 105 (38-126) U/L Total Protein 6.4 (6.3-8.2) g/dL Albumin 4.1 (3.5-5.0) g/dL Stool Occult Blood (Negative) Blood Type Blood Type Recheck Antibody Screen Spec Expiration Date 08/03/17 08/03/17 Range/Units 18:55 19:33 WBC (3.8-10.6) k/uL RBC (4.30-5.90) m/uL Hgb (13.0-17.5) gm/dL Hct (39.0-53.0) % MCV (80.0-100.0) fL MCH (25.0-35.0) pg MCHC (31.0-37.0) g/dL RDW (11.5-15.5) % Plt Count (150-450) k/uL Neutrophils % % Lymphocytes % % Monocytes % % Eosinophils % % Basophils % % Neutrophils # (1.3-7.7) k/uL Lymphocytes # (1.0-4.8) k/uL Monocytes # (0-1.0) k/uL Eosinophils # (0-0.7) k/uL Basophils # (0-0.2) k/uL Hypochromasia Poikilocytosis Anisocytosis PT (9.0-12.0) sec INR (<1.2) APTT (22.0-30.0) sec Sodium (137-145) mmol/L Potassium (3.5-5.1) mmol/L Chloride (98-107) mmol/L Carbon Dioxide (22-30) mmol/L Anion Gap mmol/L BUN (9-20) mg/dL Creatinine (0.66-1.25) mg/dL Est GFR (CKD-EPI)AfAm (>60 ml/min/1.73 sqM) Est GFR (CKD-EPI)NonAf (>60 ml/min/1.73 sqM) Glucose (74-99) mg/dL Calcium (8.4-10.2) mg/dL Total Bilirubin (0.2-1.3) mg/dL AST (17-59) U/L ALT (21-72) U/L Alkaline Phosphatase (38-126) U/L Total Protein (6.3-8.2) g/dL Albumin (3.5-5.0) g/dL Stool Occult Blood Positive (Negative) Blood Type O Negative Blood Type Recheck No Antibody Screen NEGATIVE Spec Expiration Date 08/06/2017 0190 - EKG Data EKG Comments: EKG obtained at 1856 shows normal sinus rhythm with a ventricular rate of 91, VT interval 204, QR orthodox 82, QT 380, QTc 467. No evidence of ST elevation or depression. No ectopy. (Ynes Dick) Disposition Is patient prescribed a controlled substance at d/c from ED?: No Time of Disposition: 20:48 <Ynes Dick - Last Filed: 08/03/17 20:47> <Awais Dale - Last Filed: 08/03/17 20:59> Clinical Impression: Anemia, GI bleed Disposition: Left Against Medical Advice Condition: Serious Instructions: Gastrointestinal Bleeding (ED), Anemia (ED) Additional Instructions: Follow-up with your primary care physician for recheck as soon as possible. Return here immediately for any new, worsening, or concerning symptoms. Referrals: [facility],Clinic [Primary Care Provider] - 1-2 days
[2017-08-03 19:12] LABS: Anisocytosis Slight; Basophils % (A) 0 %; Eosinophils # (A) 0.2 k/uL (0-0.7); Eosinophils % (A) 2 %; HCT 23.7 % (39.0-53.0); HGB 7.3 gm/dL (13.0-17.5); Hypochromasia Moderate; Lymphocytes # (A) 1.4 k/uL (1.0-4.8); Lymphocytes % (A) 15 %; MCH 26.1 pg (25.0-35.0); MCHC 30.9 g/dL (31.0-37.0); MCV 84.7 fL (80.0-100.0); Mean Platelet Volume 7.2; Monocytes # (A) 0.5 k/uL (0-1.0); Monocytes % (A) 5 %; Neutrophils # (A) 7.3 k/uL (1.3-7.7); Neutrophils % (A) 76 %; Platelet Count 358 k/uL (150-450); Poikilocytosis Slight; WBC 9.6 k/uL (3.8-10.6)
[2017-08-03 19:23] LABS: Albumin 4.1 g/dL (3.5-5.0); Calcium 8.8 mg/dL (8.4-10.2); INR 1.4 (<1.2); Partial Thromboplastin Time 25.1 sec (22.0-30.0); Prothrombin Time 12.8 sec (9.0-12.0); Total Bilirubin 0.3 mg/dL (0.2-1.3); Total Protein 6.4 g/dL (6.3-8.2)
== END 2017-08-03 21:09 | disposition left against medical advice (07) ==
LOC: EC 16:27
DX: K92.2 Gastrointestinal hemorrhage, unspecified (principal); D64.9 Anemia, unspecified; E11.22 Type 2 diabetes mellitus with diabetic chronic kidney disease; I12.0 Hypertensive chronic kidney disease with stage 5 chronic kidney disease or end stage renal disease; N18.5 Chronic kidney disease, stage 5; E78.5 Hyperlipidemia, unspecified; Z86.718 Personal history of other venous thrombosis and embolism; F17.200 Nicotine dependence, unspecified, uncomplicated; Z79.01 Long term (current) use of anticoagulants; Z79.82 Long term (current) use of aspirin; Z79.899 Other long term (current) drug therapy
CPT/HCPCS: 36415; 80053; 82272; 85025; 85610; 85730; 86850; 86900; 86901; 93005; 99283

== ENCOUNTER 2018-01-09 11:22 | Emergency (ER) | payer OTHER ==
[2018-01-09 11:37] VITALS: RESP 18; TEMP 97.6
--- NOTE | 2018-01-09 12:29 | ED ---
General Adult HPI <Duane Martinez - Last Filed: 01/09/18 13:57> - General Source: patient Mode of arrival: ambulatory Limitations: no limitations <Jose Phillips - Last Filed: 01/09/18 20:38> - General Chief complaint: Recheck/Abnormal Lab/Rx Stated complaint: high potassium Time Seen by Provider: 01/09/18 11:42 - History of Present Illness Initial comments: 67-year-old male with past medical history of renal disease, hyperlipidemia, hypertension, diabetes, COPD presents to the emergency department for a chief complaint of abnormal labs. Patient states his potassium was drawn last night and was 6.2. He states his doctor sent him in. Patient denies any physical complaints at this time. He states he sticks to a low potassium diet as he knows he has renal disease. Patient has no other complaints at this time including shortness of breath, chest pain, abdominal pain, nausea or vomiting, headache, or visual changes. (Jose Phillips) - Related Data Home Medications Medication Instructions Recorded Confirmed Atorvastatin [Lipitor] 80 mg PO HS 04/17/16 01/09/18 amLODIPine [Norvasc] 10 mg PO DAILY 04/17/16 01/09/18 Ferrous Gluconate 324 mg PO BID 08/03/17 01/09/18 Furosemide [Lasix] 80 mg PO DAILY 08/03/17 01/09/18 Magnesium Oxide [Mag-Ox] 250 mg PO DAILY 08/03/17 01/09/18 Niacin [Slo-Niacin] 500 mg PO HS 08/03/17 01/09/18 Pregabalin [Lyrica] 50 mg PO BID 08/03/17 01/09/18 Warfarin [Coumadin] 5 mg PO Q48H 08/03/17 01/09/18 Allopurinol [Zyloprim] 100 mg PO DAILY 01/09/18 01/09/18 Calcitriol 0.25 mcg PO MOWEFR 01/09/18 01/09/18 Ergocalciferol (Vitamin D2) 50,000 unit PO Q7DAYS 01/09/18 01/09/18 [Vitamin D2] Folic Acid 1 mg PO DAILY 01/09/18 01/09/18 Furosemide [Lasix] 40 mg PO HS 01/09/18 01/09/18 Warfarin [Coumadin] 10 mg PO Q48H 01/09/18 01/09/18 hydrALAZINE HCL 25 mg PO TID 01/09/18 01/09/18 prednisoLONE ACETATE [Pred Forte 1 drop BOTH EYES QID 01/09/18 01/09/18 1%] Allergies Allergy/AdvReac Type Severity Reaction Status Date / Time No Known Allergies Allergy Verified 08/03/17 19:25 Review of Systems ROS Other: All systems not noted in ROS Statement are negative. <Duane Martinez - Last Filed: 01/09/18 13:57> ROS Other: All systems not noted in ROS Statement are negative. <Jose Phillips - Last Filed: 01/09/18 20:38> ROS Statement: Those systems with pertinent positive or pertinent negative responses have been documented in the HPI. Past Medical History Past Medical History: COPD, Diabetes Mellitus, Deep Vein Thrombosis (DVT), Hyperlipidemia, Hypertension, Renal Disease History of Any Multi-Drug Resistant Organisms: None Reported Additional Past Surgical History / Comment(s): right aka, fem pop Past Anesthesia/Blood Transfusion Reactions: No Reported Reaction Past Psychological History: No Psychological Hx Reported Smoking Status: Current every day smoker Past Alcohol Use History: Occasional Past Drug Use History: None Reported - Past Family History Father History Unknown: Yes Additional Family Medical History / Comment(s): from blood clot back in 1968 Mother History Unknown: Yes Additional Family Medical History / Comment(s): at 94 <Jose Phillips P - Last Filed: 01/09/18 20:38> General Exam Limitations: no limitations General appearance: alert, in no apparent distress Head exam: Present: atraumatic, normocephalic, normal inspection Eye exam: Present: normal appearance, PERRL, EOMI. Absent: scleral icterus, conjunctival injection, periorbital swelling ENT exam: Present: normal exam, mucous membranes moist Neck exam: Present: normal inspection, full ROM. Absent: tenderness, meningismus, lymphadenopathy Respiratory exam: Present: normal lung sounds bilaterally. Absent: respiratory distress, wheezes, rales, rhonchi, stridor Cardiovascular Exam: Present: regular rate, normal rhythm, normal heart sounds. Absent: systolic murmur, diastolic murmur, rubs, gallop, clicks GI/Abdominal exam: Present: soft, normal bowel sounds. Absent: distended, tenderness, guarding, rebound, rigid Neurological exam: Present: alert, oriented X3, CN II-XII intact Psychiatric exam: Present: normal affect, normal mood <Jose Phillips - Last Filed: 01/09/18 20:38> Course <Duane Martinez - Last Filed: 01/09/18 13:57> <Jose Phillips P - Last Filed: 01/09/18 20:38> Vital Signs 01/09/18 01/09/18 01/09/18 11:33 14:36 14:41 Temperature 97.6 F Pulse Rate 78 78 74 Respiratory 18 18 Rate Blood Pressure 153/67 160/66 O2 Sat by Pulse 96 100 Oximetry 01/09/18 01/09/18 01/09/18 14:44 15:28 16:09 Temperature Pulse Rate 82 80 Respiratory 18 Rate Blood Pressure 170/96 145/65 O2 Sat by Pulse 97 Oximetry - Reevaluation(s) Reevaluation #1: 01/09/18 13:57 Patient reevaluated by myself, Dr. Martinez. Patient updated on results and recommendation. Patient is highly recommended to stay in the hospital for further treatment regarding hyperkalemia. Patient is made aware of this being life-threatening condition and could be in the near future, even with in the next couple of days. Family is present. Patient does demonstrate medical decision making. Patient refuses to stay in the hospital. Patient is willing to accept a brief medication administration prior to leaving. Patient refuses to stay and will leave AGAINST MEDICAL ADVICE. Patient states he will follow- up with his doctor and environmental management specialist. Patient is informed that his environmental management specialist could be contacted however patient refuses. (Duane Martinez) EKG Findings - EKG Comments: EKG Findings:: Sinus rhythm, ventricular rate 61, OH interval 224, QTC 438, no peaked T waves or ST elevation, also viewed by Dr. Martinez <Jose Phillips - Last Filed: 01/09/18 20:38> Medical Decision Making - Lab Data Result diagrams: 01/09/18 12:18 01/09/18 12:18 <Duane Martinez - Last Filed: 01/09/18 13:57> - Lab Data Result diagrams: 01/09/18 12:18 01/09/18 12:18 <Jose Phillips - Last Filed: 01/09/18 20:38> - Medical Decision Making 67-year-old male presents to the emergency department for a chief complaint of hyper kalemia. Patient has a past medical history of renal failure. Patient denies any physical complaints. CBC is unremarkable. CMP does show a potassium of 6.5, phosphorus 5.5, magnesium 2.6. EKG showed sinus rhythm with a first-degree AV block, ventricular rate 61, OH interval 224, QTC 438, and no peaked T waves or EKG changes related to potassium. Creatinine is worsened to 4.13 with a baseline of what appears to be around 3.5. Patient was given multiple medications to attempt to normalize potassium. Patient was educated this is likely due to worsening renal function. It was recommended that patient be admitted to the hospital. Patient refuses this. Patient was educated that hyperkalemia causes abnormal electrical circuit through the heart and could cause her problems including even within the next few days. She states he is aware of this and does not want to be admitted. His family member is in the room and present for this conversation. Dr. Martinez also spoke with the patient. Patient is aware he is leaving AGAINST MEDICAL ADVICE. He will follow up with his primary care provider. (Jose Phillips) - Lab Data Lab Results 01/09/18 01/09/18 01/09/18 Range/Units 12:18 12:18 14:18 WBC 8.1 (3.8-10.6) k/uL RBC 3.12 L (4.30-5.90) m/uL Hgb 10.2 L (13.0-17.5) gm/dL Hct 31.5 L (39.0-53.0) % MCV 101.1 H (80.0-100.0) fL MCH 32.6 (25.0-35.0) pg MCHC 32.3 (31.0-37.0) g/dL RDW 18.6 H (11.5-15.5) % Plt Count 197 (150-450) k/uL Neutrophils % 77 % Lymphocytes % 15 % Monocytes % 4 % Eosinophils % 3 % Basophils % 0 % Neutrophils # 6.2 (1.3-7.7) k/uL Lymphocytes # 1.2 (1.0-4.8) k/uL Monocytes # 0.3 (0-1.0) k/uL Eosinophils # 0.3 (0-0.7) k/uL Basophils # 0.0 (0-0.2) k/uL Anisocytosis Slight Macrocytosis Moderate Sodium 140 (137-145) mmol/L Potassium 6.5 H* (3.5-5.1) mmol/L Chloride 115 H (98-107) mmol/L Carbon Dioxide 16 L (22-30) mmol/L Anion Gap 9 mmol/L BUN 65 H (9-20) mg/dL Creatinine 4.13 H (0.66-1.25) mg/dL Est GFR (CKD-EPI)AfAm 16 (>60 ml/min/1.73 sqM) Est GFR (CKD-EPI)NonAf 14 (>60 ml/min/1.73 sqM) Glucose 176 H (74-99) mg/dL POC Glucose (mg/dL) 107 H (75-99) mg/dL POC Glu Assembly Supervisor ID Salgat, Alissa Calcium 8.7 (8.4-10.2) mg/dL Phosphorus 5.5 H (2.5-4.5) mg/dL Magnesium 2.6 H (1.6-2.3) mg/dL Total Bilirubin 0.5 (0.2-1.3) mg/dL AST 16 L (17-59) U/L ALT 12 L (21-72) U/L Alkaline Phosphatase 158 H (38-126) U/L Total Protein 6.4 (6.3-8.2) g/dL Albumin 3.7 (3.5-5.0) g/dL 01/09/18 Range/Units 14:49 WBC (3.8-10.6) k/uL RBC (4.30-5.90) m/uL Hgb (13.0-17.5) gm/dL Hct (39.0-53.0) % MCV (80.0-100.0) fL MCH (25.0-35.0) pg MCHC (31.0-37.0) g/dL RDW (11.5-15.5) % Plt Count (150-450) k/uL Neutrophils % % Lymphocytes % % Monocytes % % Eosinophils % % Basophils % % Neutrophils # (1.3-7.7) k/uL Lymphocytes # (1.0-4.8) k/uL Monocytes # (0-1.0) k/uL Eosinophils # (0-0.7) k/uL Basophils # (0-0.2) k/uL Anisocytosis Macrocytosis Sodium (137-145) mmol/L Potassium (3.5-5.1) mmol/L Chloride (98-107) mmol/L Carbon Dioxide (22-30) mmol/L Anion Gap mmol/L BUN (9-20) mg/dL Creatinine (0.66-1.25) mg/dL Est GFR (CKD-EPI)AfAm (>60 ml/min/1.73 sqM) Est GFR (CKD-EPI)NonAf (>60 ml/min/1.73 sqM) Glucose (74-99) mg/dL POC Glucose (mg/dL) 179 H (75-99) mg/dL POC Glu Assembly Supervisor ID Alissa Horvath Calcium (8.4-10.2) mg/dL Phosphorus (2.5-4.5) mg/dL Magnesium (1.6-2.3) mg/dL Total Bilirubin (0.2-1.3) mg/dL AST (17-59) U/L ALT (21-72) U/L Alkaline Phosphatase (38-126) U/L Total Protein (6.3-8.2) g/dL Albumin (3.5-5.0) g/dL Disposition <Duane Martinez - Last Filed: 01/09/18 13:57> Is patient prescribed a controlled substance at d/c from ED?: No Time of Disposition: 15:34 <Jose Phillips - Last Filed: 01/09/18 20:38> Clinical Impression: Hyperkalemia, Renal failure, Hyperphosphatemia Disposition: Left Against Medical Advice Condition: Fair Instructions: Chronic Kidney Disease (ED), Hyperkalemia (ED) Additional Instructions: Please follow-up with your primary care provider tomorrow. Please return to the emergency department if you have any worsening symptoms. Referrals: [facility],Clinic [Primary Care Provider] - 1-2 days
[2018-01-09] MEDS ORDERED: SODIUM CHLORIDE 0.9% 500 ML 500 ML IV STA (12:33)
[2018-01-09 12:50] LABS: Anisocytosis Slight; Basophils % (A) 0 %; Eosinophils # (A) 0.3 k/uL (0-0.7); Eosinophils % (A) 3 %; HCT 31.5 % (39.0-53.0); HGB 10.2 gm/dL (13.0-17.5); Lymphocytes # (A) 1.2 k/uL (1.0-4.8); Lymphocytes % (A) 15 %; MCH 32.6 pg (25.0-35.0); MCHC 32.3 g/dL (31.0-37.0); MCV 101.1 fL (80.0-100.0); Macrocytosis Moderate; Mean Platelet Volume 7.1; Monocytes # (A) 0.3 k/uL (0-1.0); Monocytes % (A) 4 %; Neutrophils # (A) 6.2 k/uL (1.3-7.7); Neutrophils % (A) 77 %; Platelet Count 197 k/uL (150-450); RBC 3.12 m/uL (4.30-5.90); RDW 18.6 % (11.5-15.5); WBC 8.1 k/uL (3.8-10.6)
[2018-01-09 13:04] LABS: Albumin 3.7 g/dL (3.5-5.0); Calcium 8.7 mg/dL (8.4-10.2); Magnesium 2.6 mg/dL (1.6-2.3); Phosphorus 5.5 mg/dL (2.5-4.5); Total Bilirubin 0.5 mg/dL (0.2-1.3); Total Protein 6.4 g/dL (6.3-8.2)
[2018-01-09 13:09] LABS: Potassium 6.5 mmol/L (3.5-5.1)
[2018-01-09] MEDS ORDERED: SODIUM BICARB 8.4% 50 ML SYR (1 MEQ/ML) IV ONE (14:03)
[2018-01-09] MEDS ORDERED: DEXTROSE 50%-WATER 50 ML SYRINGE IVP ONE (14:03)
[2018-01-09] MEDS ORDERED: INSULIN REGULAR 100 UNIT/ML VIAL IV ONE (14:03)
[2018-01-09] MEDS ORDERED: ALBUTEROL NEB (CONC) 2.5 MG/0.5 ML INHALATION ONE (14:03)
[2018-01-09] MEDS ORDERED: SODIUM POLYSTYRENE SULFONATE 15 GM/60 ML BOTTLE PO ONE (14:03)
[2018-01-09] MEDS ORDERED: CALCIUM GLUCONATE 1,000 MG in SODIUM CHLORIDE 0.9% 100 ML IVPB ONE (14:15)
[2018-01-09] MEDS ORDERED: CALCIUM CHLORIDE 1,000 MG in SODIUM CHLORIDE 0.9% 100 ML IV ONE (14:15)
[2018-01-09 14:27] LABS: Glucose,Whole Blood 107 mg/dL (75-99)
[2018-01-09 14:58] LABS: Glucose,Whole Blood 179 mg/dL (75-99)
[2018-01-09 16:10] VITALS: BP 145/65; PULSE 80
== END 2018-01-09 16:10 | disposition left against medical advice (07) ==
LOC: EC 11:22
DX: E87.5 Hyperkalemia (principal); E83.39 Other disorders of phosphorus metabolism; I12.9 Hypertensive chronic kidney disease with stage 1 through stage 4 chronic kidney disease, or unspecified chronic kidney disease; N18.9 Chronic kidney disease, unspecified; I44.30 Unspecified atrioventricular block; E78.5 Hyperlipidemia, unspecified; F17.200 Nicotine dependence, unspecified, uncomplicated; Z89.611 Acquired absence of right leg above knee; Z86.718 Personal history of other venous thrombosis and embolism; Z53.29 Procedure and treatment not carried out because of patient's decision for other reasons; Z79.01 Long term (current) use of anticoagulants; Z79.52 Long term (current) use of systemic steroids; Z79.899 Other long term (current) drug therapy
CPT/HCPCS: 99285; 96365; 96366; 96375 ×2; 96361 ×2; 36415; 94640; 93005; 80053; 83735; 84100; 85025; 83036; J0610

== ENCOUNTER → 2018-04-17 | Outpatient (CLI) | payer OTHER | END | disposition home or self-care (01) | LOC: LABPRL 21:11 → LABYALE 21:13 → EDSTATUS 21:14 | PROVIDERS: ATTEND Physician Assistant Medical | DX: E87.5 Hyperkalemia (principal) | CPT/HCPCS: 84132 ==

== ENCOUNTER → 2018-10-18 | Outpatient (CLI) | payer OTHER ==
[2018-10-18 14:25] LABS: Anisocytosis Slight; HGB 10.7 gm/dL (13.0-17.5); MCH 30.5 pg (25.0-35.0); MCHC 32.4 g/dL (31.0-37.0); MCV 93.9 fL (80.0-100.0); Mean Platelet Volume 7.5; Platelet Count 262 k/uL (150-450); RBC 3.52 m/uL (4.30-5.90); RDW 16.4 % (11.5-15.5); WBC 8.7 k/uL (3.8-10.6)
[2018-10-18 19:06] LABS: Iron Saturation 23.26 (15.00-50.00)
[2018-10-18 19:16] LABS: Vitamin D 25 Hydroxy 35.7 ng/mL (30.0-100.0)
[2018-10-18 20:24] LABS: Albumin 4.2 g/dL (3.80-4.90); Albumin/Globulin Ratio 2.1 (1.60-3.17); Anion Gap 7.3 mmol/L (4.00-12.00); Calcium 8.6 mg/dL (8.7-10.3); Carbon Dioxide 21.7 mmol/L (21.6-31.8); Magnesium 2.5 mg/dL (1.5-2.4); Phosphorus 5.3 mg/dL (2.4-5.1); Potassium 4.7 mmol/L (3.5-5.5); Total Bilirubin 0.2 mg/dL (0.3-1.2); Total Protein 6.2 g/dL (6.2-8.2)
[2018-10-18 20:47] LABS: African American GFR (CKD) 17.6 (60.0-200.0); BUN/Creat Ratio 17.11 Ratio (12.00-20.00); Uric Acid 7.9 mg/dL (3.7-8.7)
== END | disposition home or self-care (01) ==
LOC: LABWHC1 13:51
PROVIDERS: ATTEND Nurse Practitioner Family
DX: N18.4 Chronic kidney disease, stage 4 (severe) (principal)
CPT/HCPCS: 36415; 80053; 82306; 82728; 83540; 83550; 83735; 83970; 84100; 84550; 85027

== ENCOUNTER 2019-03-20 12:44 | Inpatient (IN) | payer OTHER, MEDICARE ==
[2019-03-20] MEDS ORDERED: IPRATROPIUM-ALBUTEROL 3 ML NEB INHALATION STA (13:33)
[2019-03-20] MEDS ORDERED: methylPREDNISolone SOD SUCCI 125 MG/2 ML VIAL IV STA (13:33)
--- NOTE | 2019-03-20 13:38 | ED ---
General Adult HPI - General Chief complaint: Shortness of Breath Stated complaint: pneumonia Time Seen by Provider: 03/20/19 13:11 Source: patient, RN notes reviewed Mode of arrival: ambulatory Limitations: physical limitation - History of Present Illness Initial comments: Patient is a pleasant [age]-year-old male presenting to emergency Department with cough and shortness of breath. Onset of symptoms was couple of days ago. Patient does have history of similar symptoms previously associated with COPD however has also has pneumonia previously and he is worried about that. Patient is unclear if he is having fevers. Cough has occasional clear sputum. Patient omits his leg is little bit more swollen than normal. - Related Data Home Medications Medication Instructions Recorded Confirmed Atorvastatin [Lipitor] 80 mg PO HS 04/17/16 10/31/18 amLODIPine [Norvasc] 10 mg PO DAILY 04/17/16 10/31/18 Magnesium Oxide [Mag-Ox] 250 mg PO DAILY 08/03/17 10/31/18 Pregabalin [Lyrica] 50 mg PO BID PRN 08/03/17 10/31/18 Warfarin [Coumadin] 5 mg PO Q48H 08/03/17 10/31/18 Allopurinol [Zyloprim] 100 mg PO DAILY 01/09/18 10/31/18 Calcitriol 0.25 mcg PO MOWEFR 01/09/18 10/31/18 Ergocalciferol (Vitamin D2) 50,000 unit PO DIRECTED 01/09/18 10/31/18 [Vitamin D2] Furosemide [Lasix] 40 mg PO HS 01/09/18 10/31/18 Warfarin [Coumadin] 10 mg PO DIRECTED 01/09/18 10/31/18 hydrALAZINE HCL 25 mg PO TID 01/09/18 10/31/18 Allergies Allergy/AdvReac Type Severity Reaction Status Date / Time No Known Allergies Allergy Verified 03/20/19 13:04 Review of Systems ROS Statement: Those systems with pertinent positive or pertinent negative responses have been documented in the HPI. ROS Other: All systems not noted in ROS Statement are negative. Constitutional: Reports: as per HPI Eyes: Denies: eye pain ENT: Denies: ear pain Respiratory: Reports: cough, dyspnea Cardiovascular: Denies: chest pain Endocrine: Denies: fatigue Gastrointestinal: Denies: abdominal pain Genitourinary: Denies: dysuria Musculoskeletal: Denies: back pain Skin: Denies: rash Neurological: Denies: weakness Past Medical History Past Medical History: COPD, Diabetes Mellitus, Deep Vein Thrombosis (DVT), Hype rlipidemia, Hypertension, Pneumonia, Renal Disease History of Any Multi-Drug Resistant Organisms: None Reported Additional Past Surgical History / Comment(s): right aka, fem pop Past Anesthesia/Blood Transfusion Reactions: No Reported Reaction Past Psychological History: No Psychological Hx Reported Smoking Status: Current every day smoker Past Alcohol Use History: None Reported Past Drug Use History: None Reported - Past Family History Father History Unknown: Yes Additional Family Medical History / Comment(s): from blood clot back in 1968 Mother History Unknown: Yes Additional Family Medical History / Comment(s): at 94 General Exam Limitations: physical limitation General appearance: alert, in no apparent distress Head exam: Present: normocephalic Eye exam: Present: normal appearance, PERRL ENT exam: Present: normal oropharynx Neck exam: Present: normal inspection Respiratory exam: Present: wheezes, rhonchi Cardiovascular Exam: Present: tachycardia GI/Abdominal exam: Present: soft. Absent: tenderness Extremities exam: Present: pedal edema, other (Right AKA). Absent: calf tenderness Neurological exam: Present: alert Psychiatric exam: Present: normal affect, normal mood Skin exam: Present: normal color Course Vital Signs 03/20/19 03/20/19 03/20/19 12:58 13:34 14:16 Temperature 98.0 F Pulse Rate 108 H 100 Respiratory 26 H 22 22 Rate Blood Pressure 128/63 O2 Sat by Pulse 99 Oximetry 03/20/19 03/20/19 14:26 14:57 Temperature 98.4 F Pulse Rate 98 96 Respiratory 20 18 Rate Blood Pressure 144/84 O2 Sat by Pulse 99 Oximetry - Reevaluation(s) Reevaluation #1: 03/20/19 15:10 Patient does meet sepsis criteria diagnosed at 1510. Blood culture and lactic acid ordered. IV and about X will be ordered fluid bolus will be ordered. EKG Findings - EKG Comments: EKG Findings:: Sinus tachycardia 105. KS 198. QRS 80. QT 340. QTc 449. Normal axis. Normal QRS. No acute ST change. Medical Decision Making - Medical Decision Making Patient reevaluated and updated. Case was discussed with Dr. Go, who will admit covering for this wy Patient. - Lab Data Result diagrams: 03/20/19 13:20 03/20/19 13:20 Lab Results 03/20/19 03/20/19 03/20/19 Range/Units 13:20 13:20 13:20 WBC 14.3 H (3.8-10.6) k/uL RBC 2.41 L (4.30-5.90) m/uL Hgb 7.0 L (13.0-17.5) gm/dL Hct 22.3 L (39.0-53.0) % MCV 92.3 (80.0-100.0) fL MCH 29.2 (25.0-35.0) pg MCHC 31.7 (31.0-37.0) g/dL RDW 15.1 (11.5-15.5) % Plt Count 457 H (150-450) k/uL Neutrophils % 85 % Lymphocytes % 8 % Monocytes % 5 % Eosinophils % 1 % Basophils % 0 % Neutrophils # 12.1 H (1.3-7.7) k/uL Lymphocytes # 1.1 (1.0-4.8) k/uL Monocytes # 0.7 (0-1.0) k/uL Eosinophils # 0.1 (0-0.7) k/uL Basophils # 0.0 (0-0.2) k/uL Hypochromasia Moderate PT (9.0-12.0) sec INR (<1.2) APTT (22.0-30.0) sec Sodium 134 L (137-145) mmol/L Potassium 5.1 (3.5-5.1) mmol/L Chloride 106 (98-107) mmol/L Carbon Dioxide 14 L (22-30) mmol/L Anion Gap 14 mmol/L BUN 78 H (9-20) mg/dL Creatinine 4.82 H (0.66-1.25) mg/dL Est GFR (CKD-EPI)AfAm 13 (>60 ml/min/1.73 sqM) Est GFR (CKD-EPI)NonAf 11 (>60 ml/min/1.73 sqM) Glucose 167 H (74-99) mg/dL Plasma Lactic Acid Damaso 2.3 H* (0.7-2.0) mmol/L Calcium 8.4 (8.4-10.2) mg/dL Total Bilirubin 0.6 (0.2-1.3) mg/dL AST 20 (17-59) U/L ALT 17 (4-49) U/L Alkaline Phosphatase 238 H (38-126) U/L Troponin I (0.000-0.034) ng/mL NT-Pro-B Natriuret Pep pg/mL Total Protein 6.2 L (6.3-8.2) g/dL Albumin 3.4 L (3.5-5.0) g/dL Influenza Type A RNA (Not Detectd) Influenza Type B (PCR) (Not Detectd) 03/20/19 03/20/19 03/20/19 Range/Units 13:20 13:20 13:20 WBC (3.8-10.6) k/uL RBC (4.30-5.90) m/uL Hgb (13.0-17.5) gm/dL Hct (39.0-53.0) % MCV (80.0-100.0) fL MCH (25.0-35.0) pg MCHC (31.0-37.0) g/dL RDW (11.5-15.5) % Plt Count (150-450) k/uL Neutrophils % % Lymphocytes % % Monocytes % % Eosinophils % % Basophils % % Neutrophils # (1.3-7.7) k/uL Lymphocytes # (1.0-4.8) k/uL Monocytes # (0-1.0) k/uL Eosinophils # (0-0.7) k/uL Basophils # (0-0.2) k/uL Hypochromasia PT 20.5 H (9.0-12.0) sec INR 2.1 H (<1.2) APTT 35.6 H (22.0-30.0) sec Sodium (137-145) mmol/L Potassium (3.5-5.1) mmol/L Chloride (98-107) mmol/L Carbon Dioxide (22-30) mmol/L Anion Gap mmol/L BUN (9-20) mg/dL Creatinine (0.66-1.25) mg/dL Est GFR (CKD-EPI)AfAm (>60 ml/min/1.73 sqM) Est GFR (CKD-EPI)NonAf (>60 ml/min/1.73 sqM) Glucose (74-99) mg/dL Plasma Lactic Acid Damaso (0.7-2.0) mmol/L Calcium (8.4-10.2) mg/dL Total Bilirubin (0.2-1.3) mg/dL AST (17-59) U/L ALT (4-49) U/L Alkaline Phosphatase (38-126) U/L Troponin I 0.044 H* (0.000-0.034) ng/mL NT-Pro-B Natriuret Pep 4300 pg/mL Total Protein (6.3-8.2) g/dL Albumin (3.5-5.0) g/dL Influenza Type A RNA (Not Detectd) Influenza Type B (PCR) (Not Detectd) 03/20/19 Range/Units 14:06 WBC (3.8-10.6) k/uL RBC (4.30-5.90) m/uL Hgb (13.0-17.5) gm/dL Hct (39.0-53.0) % MCV (80.0-100.0) fL MCH (25.0-35.0) pg MCHC (31.0-37.0) g/dL RDW (11.5-15.5) % Plt Count (150-450) k/uL Neutrophils % % Lymphocytes % % Monocytes % % Eosinophils % % Basophils % % Neutrophils # (1.3-7.7) k/uL Lymphocytes # (1.0-4.8) k/uL Monocytes # (0-1.0) k/uL Eosinophils # (0-0.7) k/uL Basophils # (0-0.2) k/uL Hypochromasia PT (9.0-12.0) sec INR (<1.2) APTT (22.0-30.0) sec Sodium (137-145) mmol/L Potassium (3.5-5.1) mmol/L Chloride (98-107) mmol/L Carbon Dioxide (22-30) mmol/L Anion Gap mmol/L BUN (9-20) mg/dL Creatinine (0.66-1.25) mg/dL Est GFR (CKD-EPI)AfAm (>60 ml/min/1.73 sqM) Est GFR (CKD-EPI)NonAf (>60 ml/min/1.73 sqM) Glucose (74-99) mg/dL Plasma Lactic Acid Damaso (0.7-2.0) mmol/L Calcium (8.4-10.2) mg/dL Total Bilirubin (0.2-1.3) mg/dL AST (17-59) U/L ALT (4-49) U/L Alkaline Phosphatase (38-126) U/L Troponin I (0.000-0.034) ng/mL NT-Pro-B Natriuret Pep pg/mL Total Protein (6.3-8.2) g/dL Albumin (3.5-5.0) g/dL Influenza Type A RNA Not Detected (Not Detectd) Influenza Type B (PCR) Not Detected (Not Detectd) - Radiology Data Radiology results: image reviewed (Chest x-ray shows possible cardiac megaly. Right middle and possible right lower lobe infiltrates.) Disposition Clinical Impression: Pneumonia, Severe sepsis Disposition: ADMITTED IP TO THIS HOSP Condition: Serious Is patient prescribed a controlled substance at d/c from ED?: No Referrals: [facility],Clinic [Primary Care Provider] - 1-2 days Decision Time: 15:11
[2019-03-20 13:59] LABS: Basophils % (A) 0 %; Eosinophils # (A) 0.1 k/uL (0-0.7); Eosinophils % (A) 1 %; HCT 22.3 % (39.0-53.0); Hypochromasia Moderate; Lymphocytes # (A) 1.1 k/uL (1.0-4.8); Lymphocytes % (A) 8 %; MCH 29.2 pg (25.0-35.0); MCHC 31.7 g/dL (31.0-37.0); MCV 92.3 fL (80.0-100.0); Monocytes # (A) 0.7 k/uL (0-1.0); Monocytes % (A) 5 %; Neutrophils # (A) 12.1 k/uL (1.3-7.7); Neutrophils % (A) 85 %; Platelet Count 457 k/uL (150-450); RBC 2.41 m/uL (4.30-5.90); RDW 15.1 % (11.5-15.5); WBC 14.3 k/uL (3.8-10.6)
[2019-03-20 14:08] LABS: INR 2.1 (<1.2); Partial Thromboplastin Time 35.6 sec (22.0-30.0); Prothrombin Time 20.5 sec (9.0-12.0)
[2019-03-20 14:14] LABS: Albumin 3.4 g/dL (3.5-5.0); Calcium 8.4 mg/dL (8.4-10.2); Potassium 5.1 mmol/L (3.5-5.1); Total Bilirubin 0.6 mg/dL (0.2-1.3); Total Protein 6.2 g/dL (6.3-8.2)
--- NOTE | 2019-03-20 14:51 | XR ---
EXAMINATION TYPE: XR chest 2V DATE OF EXAM: 03/20/2019 COMPARISON: Prior chest 01/20/2017 HISTORY: Difficulty breathing TECHNIQUE: Frontal and lateral views of the chest are obtained on 4 images. FINDINGS: Prominent lung volumes with flattening the hemidiaphragms again noted consistent with unde rlying COPD. There is interval blunting the right costophrenic angle, increased density in the subste rnal location. The cardiac silhouette size is enlarged although size may be accentuated by rotation. The osseous structures are intact. There are overlying cardiac leads IMPRESSION: Suspect right middle lobe, possible right lower lobe pneumonia with associated small eff usion. COPD. Rotated exam, possible cardiomegaly.
[2019-03-20] MEDS ORDERED: SODIUM CHLORIDE 0.9% 250 ML IV STA (15:12)
[2019-03-20] MEDS ORDERED: SODIUM CHLORIDE 0.9% 1,000 ML IV STA ×2 (15:12)
[2019-03-20] MEDS ORDERED: AZITHROMYCIN 500 MG in SODIUM CHLORIDE 0.9% 250 ML IVPB STA (15:13)
[2019-03-20] MEDS ORDERED: PNEUMONIA PROTOCOL UTILIZED 1 EACH MISC PO PRN (15:13)
[2019-03-20] MEDS ORDERED: IPRATROPIUM-ALBUTEROL 3 ML NEB INHALATION PRN (15:13)
[2019-03-20] MEDS: IPRATROPIUM-ALBUTEROL 3 ML NEB INHALATION SCH ×2 (16:51→20:17)
[2019-03-20] MEDS ORDERED: PREGABALIN 50 MG CAP PO PRN (17:54)
[2019-03-20] MEDS ORDERED: WARFARIN 10 MG TAB PO SCH (18:00)
[2019-03-20] MEDS: NICOTINE 14MG/24HR PATCH TRANSDERM SCH (18:22)
[2019-03-20] MEDS: FUROSEMIDE 40 MG TAB PO SCH (18:22)
--- NOTE | 2019-03-20 19:58 | HP ---
HISTORY AND PHYSICAL DATE OF SERVICE: 03/20/2019. HISTORY OF PRESENT ILLNESS: This 68-year-old gentleman with a past medical history of multiple medical problems, including history of COPD, diabetes mellitus, DVT, hypertension, hyperlipidemia, being followed for end-stage renal failure and refusing dialysis, being followed by [facility] and Dr. Alvarez in the outpatient setting, was admitted with a cough and shortness of breath. The patient had symptoms for the last couple of days. Patient continues to smoke. The patient was unable to stop coughing, and the patient came to [facility]. His chest x-ray, which was personally evaluated by me and done in the ER, showed possible evidence of right middle lobe pneumonia and right lower pneumonia. There was some effusion. The patient was admitted for further evaluation and treatment. Flu is negative. There is no history of any fever, rigor or chills. No history of headache, loss of consciousness, seizures at this time. PAST MEDICAL HISTORY: History of COPD, diabetes mellitus, history of DVT, hypertension, hyperlipidemia, history of renal disease. HOME MEDICATIONS: 1. Coumadin 10 mg Monday, Monday, Monday. 2. Symbicort 160/4.5 two puffs b.i.d. 3. ProAir 2 puffs q.4 p.r.n. 4. Norvasc 10 mg p.o. daily. 5. Ecotrin 325 mg daily. 6. Hydralazine 25 mg p.o. t.i.d. 7. Coumadin 5 mg Monday, Monday, , Monday. 8. Lyrica 50 mg t.i.d. p.r.n. 9. Lasix 40 mg p.o. b.i.d. 10.Calcitriol 0.25 mg Monday, Monday, Monday, Monday, , Monday. ALLERGIES: NONE. FAMILY HISTORY: History of pulmonary embolism in the family. SOCIAL HISTORY: History of smoking. No history of alcohol. No history of substance abuse. REVIEW OF SYSTEMS: ENT: Diminished hearing. Diminished vision. CARDIOVASCULAR SYSTEM: As mentioned earlier. RESPIRATORY SYSTEM: As mentioned earlier. GI: No nausea, vomiting. : As mentioned earlier. NERVOUS SYSTEM: No numbness, weakness. ALLERGY/IMMUNOLOGY: No asthma, hayfever. MUSCULOSKELETAL: As mentioned earlier. HEMATOLOGY/ONCOLOGY: No history of anemia. ENDOCRINE: No history of diabetes, hypothyroidism. CONSTITUTIONAL: As mentioned earlier. DERMATOLOGY: Negative. RHEUMATOLOGY: Negative. PSYCHIATRY: As mentioned earlier. PHYSICAL EXAMINATION: Patient is alert and oriented x3. Pulse is 100, blood pressure 145/84, respiration 18, temperature 98.4, pulse ox 99% on 2 L. HEENT: Conjunctivae normal. NECK: No jugular venous distention. CARDIOVASCULAR SYSTEM: S1, S2 muffled. RESPIRATORY SYSTEM: Breath sounds diminished at the bases. Bilateral scattered rhonchi and crackles. Expiratory wheezing also present. ABDOMEN: Soft, obese, non-tender. No mass palpable. LEGS: No edema. No swelling. NERVOUS SYSTEM: Higher functions as mentioned earlier. Moves all 4 limbs. No focal motor or sensory deficit. LYMPHATICS: No lymph node palpable in neck, axillae or groin. SKIN: No ulcer, rash, bleeding. JOINTS: No active deforming arthropathy. LABS: WBC 14.3, hemoglobin 7. Sodium 134, potassium 5.1. Creatinine 4.82. Plasma lactic acid 2.3. Troponin 0.044. NT-proBNP is 4300. ASSESSMENT: 1. Shortness of breath, possibly chronic obstructive pulmonary disease, acute exacerbation, with acute right lower lobe and middle lobe pneumonia, possibly Gram- negative with possible sepsis present on admission. 2. Chronic renal failure, stage IV, not on hemodialysis per patient's preference. 3. Elevated plasma lactic acid, possibly secondary to sepsis. 4. Hyponatremia. 5. Increased white count. 6. Anemia. 7. Troponin 0.044, indeterminate. 8. Mild to moderate protein-calorie malnutrition. 9. History of chronic obstructive pulmonary disease. 10.Diabetes mellitus, type 2. 11.Deep venous thrombosis. 12.Hypertension. 13.Hyperlipidemia. 14.Renal disease. 15.History of continued ongoing nicotine dependence. RECOMMENDATIONS AND DISCUSSION: In this 68-year-old gentleman who presented with multiple complex medical issues, we will monitor the patient closely. I would optimize bronchodilator treatment, empiric antibiotics. I would also get pulmonary and nephrology consultations. Resume the home medications. Overall prognosis is extremely guarded because of multiple complex medical issues. Further recommendations to follow. A copy of this dictation is being forwarded to Dr. Alvarez, who is the primary physician. MMODL / IJN: [id number] /
[2019-03-20] MEDS ORDERED: guaiFENesin SYRUP 100MG/5ML 200 MG/10 ML CUP PO PRN (20:02)
[2019-03-20] MEDS: SYMBICORT 160-4.5 MCG INHALER INHALATION SCH (20:17)
[2019-03-20] MEDS: hydrALAZINE HCL 25 MG TAB PO SCH (20:20)
[2019-03-20] MEDS: methylPREDNISolone SOD SUCCI 125 MG/2 ML VIAL IV SCH (20:20)
[2019-03-20] MEDS: CALCITRIOL 0.25 MCG CAP PO SCH (20:20)
[2019-03-20] MEDS: WARFARIN 10 MG TAB PO SCH (20:26)
[2019-03-20 22:32] LABS: Glucose,Whole Blood 247 mg/dL (75-99)
[2019-03-21] MEDS: INSULIN ASPART (NovoLOG) 100 UNIT/ML VIAL SQ SCH ×5 (00:17→20:37)
[2019-03-21] MEDS: methylPREDNISolone SOD SUCCI 125 MG/2 ML VIAL IV SCH ×5 (00:17→20:34)
[2019-03-21 06:10] LABS: Glucose,Whole Blood 218 mg/dL (75-99)
[2019-03-21] MEDS: PANTOPRAZOLE 40 MG TABLET PO SCH (06:38)
[2019-03-21 07:27] LABS: Basophils % (A) 0 %; Eosinophils % (A) 0 %; Hypochromasia Moderate; Lymphocytes # (A) 0.5 k/uL (1.0-4.8); Lymphocytes % (A) 5 %; MCH 29.2 pg (25.0-35.0); MCHC 31.5 g/dL (31.0-37.0); MCV 92.7 fL (80.0-100.0); Monocytes # (A) 0.2 k/uL (0-1.0); Monocytes % (A) 2 %; Neutrophils % (A) 93 %; Platelet Count 372 k/uL (150-450); RBC 2.13 m/uL (4.30-5.90); RDW 15.3 % (11.5-15.5); WBC 10.7 k/uL (3.8-10.6)
[2019-03-21 07:28] LABS: INR 2.3 (<1.2); Prothrombin Time 22.8 sec (9.0-12.0)
[2019-03-21 07:32] LABS: HCT 19.7 % (39.0-53.0); HGB 6.2 gm/dL (13.0-17.5)
[2019-03-21 07:35] LABS: Potassium 5.2 mmol/L (3.5-5.1)
--- NOTE | 2019-03-21 07:48 | XR ---
EXAMINATION TYPE: XR chest 1V portable DATE OF EXAM: 03/21/2019 COMPARISON: 03/20/2019 HISTORY: Shortness of breath and pneumonia TECHNIQUE: Single frontal view of the chest is obtained. FINDINGS: Trace right pleural effusion. Left costophrenic angle is not included on the images. Pulmo nary hyperinflation relating to underlying COPD. Enlarged cardiomediastinal silhouette. There remains slight obscuration of the cardiophrenic angle. No pneumothorax. Osseous structures are intact. IMPRESSION: Similar obscuration of the right cardiophrenic angle, likely right middle lobe pneumonia with trace parapneumonic effusion. Underlying COPD.
[2019-03-21] MEDS: SYMBICORT 160-4.5 MCG INHALER INHALATION SCH ×2 (08:37→19:48)
[2019-03-21] MEDS: IPRATROPIUM-ALBUTEROL 3 ML NEB INHALATION SCH ×4 (08:37→19:48)
[2019-03-21] MEDS: ASPIRIN 325 MG TAB PO SCH (09:01)
[2019-03-21] MEDS: amLODIPine 10 MG TAB PO SCH (09:01)
[2019-03-21] MEDS: hydrALAZINE HCL 25 MG TAB PO SCH ×3 (09:01→20:33)
[2019-03-21] MEDS: FUROSEMIDE 40 MG TAB PO SCH ×2 (09:01→15:52)
[2019-03-21] MEDS: NICOTINE 14MG/24HR PATCH TRANSDERM SCH (09:01)
[2019-03-21] MEDS: MULTIVITAMINS, THERA 1 EACH TAB PO SCH (09:01)
[2019-03-21 12:17] LABS: Glucose,Whole Blood 251 mg/dL (75-99)
[2019-03-21] MEDS: HYDROcodone/APAP 5-325MG 1 EACH TAB PO PRN (15:51)
[2019-03-21] MEDS: WARFARIN 10 MG TAB PO SCH (15:52)
[2019-03-21] MEDS ORDERED: AZITHROMYCIN 500 MG TAB PO SCH (16:00)
[2019-03-21] MEDS ORDERED: AZITHROMYCIN 500 MG in SODIUM CHLORIDE 0.9% 250 ML IVPB SCH (16:00)
[2019-03-21 17:26] LABS: Glucose,Whole Blood 349 mg/dL (75-99)
[2019-03-21] MEDS: CALCITRIOL 0.25 MCG CAP PO SCH (17:40)
[2019-03-21] MEDS ORDERED: WARFARIN 5 MG TAB PO SCH (18:00)
--- NOTE | 2019-03-21 20:16 | PN ---
PROGRESS NOTE DATE OF SERVICE: 03/21/2019 This 68-year-old gentleman who was admitted with shortness of breath and COPD, acute exacerbation, also had chronic renal failure. Patient refused hemodialysis previously. The hemoglobin was found to be 6.2. One unit transfusion has been recommended at this time. The patient is feeling tired and weak. No chest pain. No palpitations. The blood culture showed coagulase-negative Staph. Past medical history reviewed. REVIEW OF SYSTEMS: CARDIOVASCULAR SYSTEM: As mentioned earlier. RESPIRATORY SYSTEM: As mentioned earlier. GI: As mentioned earlier. : As mentioned earlier. NERVOUS SYSTEM: Diffusely weak. CURRENT MEDICATIONS: Reviewed. They include: 1. [place] 5 mg q.6 p.r.n. 2. DuoNeb q.i.d. and p.r.n. 3. Norvasc 10 mg daily. 4. Aspirin 320 mg daily. 5. Zithromax 500 mg. 6. Calcitriol. 7. Rocephin 1 gram daily. 8. Lasix. 9. Apresoline. 10.Ativan. 11.Solu-Medrol 60 IV q.6. 12.Habitrol. 13.Protonix. 14.Lyrica. 15.Coumadin. PHYSICAL EXAMINATION: Patient is alert, oriented x3. Pulse is 96, blood pressure 151/48, respiration 18, temperature 97 degrees, pulse ox 96% on room air. HEENT: Conjunctivae pale. NECK: No jugular venous distention. CARDIOVASCULAR SYSTEM: S1, S2 muffled. RESPIRATORY SYSTEM: Breath sounds diminished at the bases. Bilateral scattered rhonchi and crackles. ABDOMEN: Soft, non-tender. LEGS: No edema. No swelling. NERVOUS SYSTEM: No focal deficit. LABS: WBC 10.7, hemoglobin 6.2, sodium 136, potassium 5.2. Creatinine is 4.78. ASSESSMENT: 1. Shortness of breath, possible chronic obstructive pulmonary disease, acute exacerbation, with possible acute right lower lobe and middle lobe pneumonia, possibly Gram-negative with possible sepsis, present on admission. 2. Chronic renal failure, stage IV, not on hemodialysis per patient's preference. 3. Anemia, multifactorial, possibly secondary to renal failure, severe, and needed transfusion. 4. Elevated plasma lactic acid, possibly secondary to sepsis, present on admission. 5. Metabolic acidosis. 6. Hyponatremia. 7. Increased white count. 8. Anemia. 9. Troponin 0.44, indeterminate. 10.Mild to moderate protein-calorie malnutrition. 11.History of chronic obstructive pulmonary disease. 12.Diabetes mellitus, type 2. 13.History of deep venous thrombosis. 14.Hypertension. 15.Hyperlipidemia. 16.History of renal disease. 17.History of continued ongoing nicotine dependence. RECOMMENDATIONS AND DISCUSSION: In this 68-year-old gentleman who presented with multiple complex medical issues, we will monitor the patient closely, continue the current medications, continue symptomatic treatment. Continue the bronchodilators. One unit transfusion with Lasix. Will continue to monitor. Continue the rest of the medications. I would also add sodium bicarb to the current regimen. Continue to monitor. Further recommendations to follow. MMODL / IJN: [id number] /
[2019-03-21 20:30] LABS: Glucose,Whole Blood 185 mg/dL (75-99)
[2019-03-21] MEDS: SODIUM BICARBONATE TAB 650 MG TAB PO SCH ×2 (20:33→20:36)
[2019-03-22 06:01] LABS: Glucose,Whole Blood 246 mg/dL (75-99)
[2019-03-22] MEDS: methylPREDNISolone SOD SUCCI 125 MG/2 ML VIAL IV SCH ×3 (06:41→16:03)
[2019-03-22] MEDS: PANTOPRAZOLE 40 MG TABLET PO SCH (06:47)
[2019-03-22] MEDS: INSULIN ASPART (NovoLOG) 100 UNIT/ML VIAL SQ SCH ×4 (06:47→21:40)
[2019-03-22 07:13] LABS: Basophils % (A) 0 %; Eosinophils % (A) 0 %; Hypochromasia Moderate; Lymphocytes # (A) 0.4 k/uL (1.0-4.8); Lymphocytes % (A) 3 %; MCH 28.7 pg (25.0-35.0); MCHC 30.9 g/dL (31.0-37.0); MCV 93.1 fL (80.0-100.0); Mean Platelet Volume 8.1; Monocytes # (A) 0.4 k/uL (0-1.0); Monocytes % (A) 3 %; Neutrophils # (A) 13.3 k/uL (1.3-7.7); Neutrophils % (A) 93 %; Platelet Count 350 k/uL (150-450); RBC 1.95 m/uL (4.30-5.90); RDW 15.3 % (11.5-15.5); WBC 14.4 k/uL (3.8-10.6)
[2019-03-22] MEDS: IPRATROPIUM-ALBUTEROL 3 ML NEB INHALATION SCH ×4 (07:14→20:35)
[2019-03-22] MEDS: SYMBICORT 160-4.5 MCG INHALER INHALATION SCH ×2 (07:14→20:36)
[2019-03-22 07:25] LABS: Calcium 7.9 mg/dL (8.4-10.2); Potassium 5.1 mmol/L (3.5-5.1)
[2019-03-22 07:26] LABS: INR 4.1 (<1.2); Prothrombin Time 40.9 sec (9.0-12.0)
[2019-03-22 07:38] LABS: HGB 5.6 gm/dL (13.0-17.5)
[2019-03-22 07:39] LABS: HCT 18.1 % (39.0-53.0)
[2019-03-22] MEDS: SODIUM BICARBONATE TAB 650 MG TAB PO SCH ×3 (09:19→21:41)
[2019-03-22] MEDS: NICOTINE 14MG/24HR PATCH TRANSDERM SCH (09:19)
[2019-03-22] MEDS: ASPIRIN 325 MG TAB PO SCH (09:19)
[2019-03-22] MEDS: amLODIPine 10 MG TAB PO SCH (09:20)
[2019-03-22] MEDS: MULTIVITAMINS, THERA 1 EACH TAB PO SCH (09:20)
[2019-03-22] MEDS: hydrALAZINE HCL 25 MG TAB PO SCH ×3 (09:20→21:40)
[2019-03-22] MEDS: FUROSEMIDE 40 MG TAB PO SCH ×2 (09:20→18:16)
--- NOTE | 2019-03-22 09:42 | P.NPCON ---
History of Present Illness - Reason for Consult chronic renal failure - History of Present Illness Reason for consultation: Acute kidney injury on chronic kidney disease History of present illness: Patient is a 68-year-old male seen in renal consultation for acute kidney injury on chronic kidney disease. Patient has chronic kidney disease stage IV/5 with baseline creatinine near 4. Creatinine today is 4.77. Patient presented to the hospital due to cough which started on Monday. Patient describes the cough as dry. He denies fever or chills. No vomiting or diarrhea. He is currently maintained on antibiotics for right middle lobe pneumonia. Additionally patient's hemoglobin was 6.2 on admission and is 5.6 today. He denies any melena or hematochezia. He admits to good urine output. No hematuria or dysuria. Patient is refusing blood transfusions as he states he's had a reaction to it before. Denies chest pain or shortness of breath. He is noted to be quite acidotic with a bicarb level of 11. Hemodynamically he is stable. Patient does not take all his medications as prescribed outpatient. He also wishes for no forms of renal replacement therapy if indicated. Vital signs are stable. General: The patient appeared well nourished and normally developed. HEENT: Head exam is unremarkable. Neck is without jugular venous distension. LUNGS: Lungs are clear to auscultation and percussion. Breath sounds decreased. HEART: Rate and Rhythm are regular. First and second heart sounds normal. No murmurs, rubs or gallops. ABDOMEN: Abdominal exam reveals normal bowel sounds. Non-tender and non- distended. No evidence of peritonitis. EXTREMITITES: No clubbing, cyanosis, or edema. Right [id number] habitation noted. Past Medical History Past Medical History: COPD, Diabetes Mellitus, Deep Vein Thrombosis (DVT), Hyperlipidemia, Hypertension, Pneumonia, Renal Disease Additional Past Medical History / Comment(s): stage V renal failure, refuses dialysis History of Any Multi-Drug Resistant Organisms: None Reported Additional Past Surgical History / Comment(s): right aka, bilat fem pop, all teeth pulled Past Anesthesia/Blood Transfusion Reactions: No Reported Reaction Past Psychological History: No Psychological Hx Reported Smoking Status: Current every day smoker Past Alcohol Use History: None Reported Additional Past Alcohol Use History / Comment(s): Smokes 1pack a day. Drinks a beer on occasion. Lives at home with 1 dog and 1 cat and a room mate he never sees. Drives. Past Drug Use History: None Reported - Past Family History Father History Unknown: Yes Additional Family Medical History / Comment(s): from blood clot back in 1968 Mother History Unknown: Yes Additional Family Medical History / Comment(s): at 94 Medications and Allergies Home Medications Medication Instructions Recorded Confirmed Type amLODIPine [Norvasc] 10 mg PO DAILY 04/17/16 03/20/19 History Pregabalin [Lyrica] 50 mg PO TID PRN 08/03/17 03/20/19 History Warfarin [Coumadin] 5 mg PO SUTUTHSA 08/03/17 03/20/19 History Calcitriol 0.25 mcg PO SUMOTUWETHFR 01/09/18 03/20/19 History Furosemide [Lasix] 40 mg PO BID 01/09/18 03/20/19 History Warfarin [Coumadin] 10 mg PO MOWEFR 01/09/18 03/20/19 History hydrALAZINE HCL 25 mg PO TID 01/09/18 03/20/19 History Albuterol Sulfate [Proair Hfa] 2 puff INHALATION RT-Q4H PRN 03/20/19 03/20/19 History Aspirin EC [Ecotrin] 325 mg PO DAILY 03/20/19 03/20/19 History Budesonide/Formoterol Fumarate 2 puff INHALATION RT-BID 03/20/19 03/20/19 History [Symbicort 160-4.5 Mcg Inhaler] Allergies Allergy/AdvReac Type Severity Reaction Status Date / Time No Known Allergies Allergy Verified 03/20/19 15:54 Physical Exam Vitals: Vital Signs Temp Pulse Pulse Pulse Resp BP Pulse Ox 03/22/19 07:58 96.9 F L 110 H 18 144/78 97 03/22/19 07:25 94 03/22/19 07:14 90 03/22/19 00:00 76 18 03/21/19 20:25 98.2 F 76 18 156/76 97 03/21/19 20:00 92 03/21/19 19:51 88 03/21/19 16:02 90 03/21/19 16:00 104 H 16 133/76 96 03/21/19 15:53 94 03/21/19 12:02 92 03/21/19 11:54 96 03/21/19 11:50 97.0 F L 102 H 18 151/48 96 Intake and Output 03/21/19 03/22/19 03/22/19 22:59 06:59 14:59 Intake Total 880 400 250 Output Total 200 Balance 880 200 250 Intake: Oral 880 400 250 Output: Urine 200 Other: # Voids 1 Weight 76 kg Results - Lab Results Most recent lab results Calcium 7.9 mg/dL (8.4-10.2) L 03/22/19 06:24 03/22/19 06:24 03/22/19 06:24 Assessment and Plan Plan: Assessment: 1. Acute kidney injury secondary to ATN secondary to acute blood loss anemia. Creatinine 4.77 today. 2. Chronic kidney disease stage IV/5 secondary to nephrosclerosis. 3. Hypertension with chronic kidney disease. Stable. 4. Chronic kidney disease mineral bone disease maintained on calcitriol. 5. Acute blood loss anemia. Hemoglobin 5.6 today. Patient refusing blood transfusion. 6. Metabolic acidosis secondary to acute kidney injury. 7. Right middle lobe pneumonia maintained on antibiotics. Plan: Start bicarb drip at 60 mL an hour. Maintain oral sodium bicarbonate. IV DDAVP 1 dose today. Maintain Lasix 40 mg orally twice daily. Continue to monitor renal function and urine output. Replacement therapy has been extensively discussed with the patient outpatient. Patient wishes for no formal renal replacement therapy if indicated. Thank you for the consultation. I will continue to follow the patient with you during his hospital stay.
[2019-03-22] MEDS ORDERED: DESMOPRESSIN ACETATE 23 MCG in SODIUM CHLORIDE 0.9% 50 ML IVPB ONE (11:00)
[2019-03-22] MEDS ORDERED: DARBEPOETIN ALFA 40 MCG/0.4 ML SYRINGE SQ SCH (11:00)
[2019-03-22 12:14] LABS: Glucose,Whole Blood 244 mg/dL (75-99)
--- NOTE | 2019-03-22 14:16 | CONS ---
CONSULTATION PULMONARY/CRITICAL ARE CONSULTATION: DATE OF SERVICE: 03/22/2019 This is a 68-year-old gentleman who typically sees Radha Benitez, a nurse practitioner at the [facility]. The patient apparently presents to the emergency room on March 20 with complaints of shortness of breath and possible pneumonia. He apparently has been complaining of significant shortness of breath, cough and phlegm production for a number of days prior to admission. He apparently has a prior history of COPD exacerbation complicated by pneumonia. The patient admits to fever, no chills. His cough is productive of yellow phlegm. No nausea, vomiting, diarrhea. No genitourinary complaints. He does admit to some mild lower extremity edema. There is no chest pain or chest discomfort. He denies any headache. No sore throat or earache. The patient really does not look that bad. He is sitting in bed. He apparently is refusing blood transfusions. He is also refusing other therapies. He is a DNR. HOME MEDICATIONS: Reviewed. He is apparently on Lipitor, Norvasc, Mag-Ox, Lyrica, Coumadin, Zyloprim, calcitriol, vitamin D2, Lasix, and hydralazine. ALLERGIES: Denied. MEDICAL HISTORY: COPD, diabetes mellitus, deep venous thrombosis, hyperlipidemia, hypertension, pneumonia, chronic kidney disease. The only other person that he sees for his health other than the nurse practitioner at the [place], [place], Radha Benitez, is Dr. Baig in Nephrology. SURGICAL HISTORY: Includes a right jzedz-cin-pcnh amputation and a femoral-popliteal bypass. SOCIAL HISTORY: Positive for ongoing tobacco use. Denies any alcohol or illicit drug use. FAMILY HISTORY: Positive for a father who apparently from a blood clot in 1968 and mother who lived to and was relatively healthy. REVIEW OF SYSTEMS: CONSTITUTIONAL: Negative. NEUROLOGIC: Negative. HEENT: Negative. CARDIOVASCULAR: Negative. PULMONARY: Shortness of breath, cough and phlegm production, chest congestion. GI: Negative. : Negative. RHEUMATOLOGIC: Negative. IMMUNOLOGIC: Negative. ENDOCRINOLOGIC: Negative. DERMATOLOGIC: Negative. Current vital signs are reviewed. Temperature 97, heart rate of 90, respiratory rate 22, blood pressure 198/98 mean 131, 2 L saturation 96%. Appears in no acute distress. Has a frequent wet, congested cough. HEENT: Examination is grossly unremarkable. Mucous membranes are moist. Nasal O2 noted. NECK: Supple, full range of motion. No adenopathy or thyromegaly. Neck veins are flat. CARDIOVASCULAR: Examination reveals regular rhythm and rate. Heart rate 90. Heart sounds are distant. S1, S2 normal. No murmur. LUNGS: Reveal coarse inspiratory and expiratory rhonchi and wheezes. There is prolongation on forced maneuver. Adventitious lung sounds are more prominent on forced maneuver. No crackles. ABDOMEN: Soft, bowel sounds are heard. EXTREMITIES: Reveal a right AKA. No edema in the left leg. No cyanosis or clubbing. SKIN: Without rash. NEUROLOGIC: Examination is nonfocal. A chest x-ray is done. On the , the x-ray shows a suspected right middle lobe, right lower lobe pneumonia with a small effusion. There are also changes of COPD. A repeat chest x-ray on 03/21 shows similar op saturation of the right cardiophrenic angle with possible right middle lobe pneumonia. LABS: Reviewed. White count 14.4, hemoglobin 5.6, hematocrit 18.1 and platelet count 350,000. PT 40.9, INR 4.1. Sodium 136, potassium 5.1, chloride 110, CO2 is 11, anion gap is 15. BUN and creatinine were 100 and 4.77. Calcium is 7.9. Microbiology is currently showing coag-negative staph in the blood. May be a contaminant. Medications are reviewed. He is currently on amlodipine, aspirin, Zithromax, Symbicort, Rocaltrol, Rocephin, Aranesp, desmopressin, Lasix, Robitussin, Apresoline, [place] insulin, DuoNeb, Ativan, Solu-Medrol, multivitamins, nicotine patch, Protonix, Lyrica, D5W with 1 amp of bicarb at 60 mL an hour, bicarbonate tablets grain 10 three times a day, warfarin 5 mg alternating with 10 mg. ASSESSMENT: 1. Right middle lobe, right lower lobe pneumonia complicated complicating chronic obstructive pulmonary disease exacerbation. 2. Ongoing tobacco use with nicotine addiction. 3. Previous right bhhjb-byz-auiw amputation. 4. Severe anemia, likely representing anemia of chronic disease from his chronic kidney disease. 5. Chronic kidney disease. 6. Hyperlipidemia. 7. History of hypertension. 8. History of deep venous thrombosis. 9. History of pneumonia. 10.Peripheral vascular occlusive disease. PLAN: The patient is on appropriate medications. Will continue to follow. He is refusing certain medications therapy. He is a NO CODE. We counseled him about the importance of smoking cessation. Will continue to follow. ELIZABETH / DANIELN: [id number] /
[2019-03-22] MEDS: DEXTROSE 5% IN WATER 1,000 ML with SODIUM BICARB (1 MEQ/ML) 150 ML IV SCH (16:00)
[2019-03-22 17:29] LABS: Glucose,Whole Blood 183 mg/dL (75-99)
[2019-03-22] MEDS: HYDROcodone/APAP 5-325MG 1 EACH TAB PO PRN (18:14)
--- NOTE | 2019-03-22 18:35 | PN ---
PROGRESS NOTE DATE OF SERVICE: 03/22/2019 This 68-year-old gentleman who was admitted with shortness of breath, COPD, acute exacerbation, as well as acute right lobe pneumonia and middle lobe pneumonia had also features of sepsis. The patient had chronic renal failure, also. The patient's hemoglobin today is 5.6. The patient is extremely pale. PT/INR is also elevated at 4.1. The patient is refusing blood transfusions on the context that the patient has renal failure and opted not to have hemodialysis also. The patient had apparently a bad reaction from the previous blood transfusions. The patient continues to be NO CODE. The patient is being closely monitored at this time. Past medical history reviewed. REVIEW OF SYSTEMS: CARDIOVASCULAR SYSTEM: As mentioned earlier. RESPIRATORY SYSTEM: As mentioned earlier. GI: As mentioned earlier. HEMATOLOGY/ONCOLOGY: As mentioned earlier. CURRENT MEDICATIONS: Reviewed. They include: 1. [place] 5 mg q.6 p.r.n. 2. DuoNeb q.i.d. and p.r.n. 3. Norvasc 10 mg p.o. daily. 4. Aspirin 320 mg p.o. daily. 5. Zithromax 500 mg p.o. daily. 6. Symbicort 160/4.5 two puffs b.i.d. 7. Rocaltrol 0.25 mg Monday, Monday, Monday, Monday, , Monday. 8. Rocephin 1 gram daily. 9. Aranesp 40 mg subcutaneously q.7 days. 10.Lasix 40 mg p.o. b.i.d. 11.Robitussin. 12.Apresoline 25 mg t.i.d. 13.NovoLog. 14.Ativan. 15.Solu-Medrol 60 IV q.6. 16.Multivitamins. 17.Habitrol 14 daily. 18.Protonix. 19.Lyrica. 20.Coumadin. PHYSICAL EXAMINATION: Patient is alert, oriented x3. Pulse is 98, blood pressure is 198/98, respiration 22, temperature 97 degrees, pulse ox 96% on 2 L. HEENT: Conjunctivae normal. NECK: No jugular venous distention. CARDIOVASCULAR SYSTEM: S1, S2 muffled. RESPIRATORY SYSTEM: Breath sounds diminished at the bases. Bilateral scattered rhonchi and crackles. ABDOMEN: Soft, non-tender. LEGS: No edema. No swelling. NERVOUS SYSTEM: No focal deficit. LABS: WBC 14.5, hemoglobin 5.6, and INR is 4.1. Sodium is 136. Blood sugar is elevated. ASSESSMENT: 1. Shortness of breath; possible chronic obstructive pulmonary disease, acute exacerbation, with acute right lower lobe pneumonia and middle lobe pneumonia with possibly Gram-negative with possible sepsis, present on admission. 2. Chronic renal failure, stage IV, not on hemodialysis per patient's preference. 3. Anemia, multifactorial, possibly secondary to renal failure, severe; needed transfusion. Patient refuses. 4. Elevated plasma lactic acid, possibly secondary to sepsis, present on admission. 5. Metabolic acidosis. 6. Hyponatremia. 7. Increased white count. 8. Anemia. 9. Troponin 0.44, indeterminate. 10.Mild Coumadin coagulopathy. 11.Mild to moderate protein-calorie malnutrition. 12.History of chronic obstructive pulmonary disease. 13.Diabetes mellitus, type 2, with hyperglycemia. 14.History of deep venous thrombosis. 15.Hypertension. 16.Hyperlipidemia. 17.History of renal disease. 18.Continued ongoing nicotine dependence. 19.NO CODE, NO CPR, NO VENT. RECOMMENDATIONS AND DISCUSSION: In this 68-year-old gentleman who presented with multiple complex medical issues, we will monitor the patient closely, continue the current medications, continue with symptomatic treatment, monitor blood sugars closely. We will hold the Coumadin at this time. Hemoglobin has dropped to 5.6. I recommended the need for transfusions; the patient Procrit at this time. The patient reports that he will watch how the hemoglobin goes and decide later. Otherwise, the blood sugar is elevated and I would recommend Accu-Cheks before meals and at bedtime and use the scale. The sugar is uncontrolled. I would definitely recommend IV insulin drip. Otherwise, we will taper the steroids for now. Further recommendations to follow. Once again, overall prognosis is extremely guarded because of the multiple complex medical issues. Further recommendations to follow. I would also recommend a chest x-ray PA tomorrow morning to assess the fluid/electrolyte balance. See orders for further details. MMODL / IJN: [id number] / MTDD
[2019-03-22 20:06] LABS: Glucose,Whole Blood 238 mg/dL (75-99)
[2019-03-22] MEDS: CALCITRIOL 0.25 MCG CAP PO SCH (21:30)
[2019-03-22] MEDS: LORazepam 0.5 MG TAB PO PRN (21:40)
[2019-03-23 06:14] LABS: Glucose,Whole Blood 311 mg/dL (75-99)
[2019-03-23 06:18] LABS: Basophils # (A) 0.1 k/uL (0-0.2); Basophils % (A) 1 %; Eosinophils % (A) 0 %; HCT 20.9 % (39.0-53.0); Hypochromasia Moderate; Lymphocytes # (A) 0.4 k/uL (1.0-4.8); Lymphocytes % (A) 2 %; MCH 28.4 pg (25.0-35.0); MCHC 30.4 g/dL (31.0-37.0); MCV 93.7 fL (80.0-100.0); Mean Platelet Volume 8.2; Monocytes # (A) 0.4 k/uL (0-1.0); Monocytes % (A) 3 %; Neutrophils % (A) 94 %; Platelet Count 408 k/uL (150-450); Poikilocytosis Slight; RBC 2.23 m/uL (4.30-5.90); RDW 15.9 % (11.5-15.5)
[2019-03-23 06:27] LABS: HGB 6.3 gm/dL (13.0-17.5)
[2019-03-23 06:30] LABS: Calcium 7.8 mg/dL (8.4-10.2); Magnesium 2.2 mg/dL (1.6-2.3)
[2019-03-23 06:31] LABS: Prothrombin Time 67.2 sec (9.0-12.0)
[2019-03-23] MEDS: INSULIN ASPART (NovoLOG) 100 UNIT/ML VIAL SQ SCH ×4 (06:48→21:13)
[2019-03-23] MEDS: methylPREDNISolone SOD SUCCI 125 MG/2 ML VIAL IV SCH ×3 (06:48→15:58)
[2019-03-23 06:59] LABS: INR 6.6 (<1.2); Potassium 4.9 mmol/L (3.5-5.1)
--- NOTE | 2019-03-23 07:35 | XR ---
EXAMINATION TYPE: XR chest 1V portable DATE OF EXAM: 03/23/2019 HISTORY: chf. REFERENCE: Previous study dated 03/21/2019. FINDINGS: Heart is mildly enlarged. There is improved aeration of the right middle lobe. I suspect a small right-sided effusion. IMPRESSION: IMPROVED AERATION, RIGHT MIDDLE LOBE.
[2019-03-23] MEDS: SYMBICORT 160-4.5 MCG INHALER INHALATION SCH ×2 (08:37→21:26)
[2019-03-23] MEDS: IPRATROPIUM-ALBUTEROL 3 ML NEB INHALATION SCH ×4 (08:37→21:26)
[2019-03-23] MEDS: PANTOPRAZOLE 40 MG TABLET PO SCH (09:12)
[2019-03-23] MEDS: SODIUM BICARBONATE TAB 650 MG TAB PO SCH ×3 (09:12→21:13)
[2019-03-23] MEDS: NICOTINE 14MG/24HR PATCH TRANSDERM SCH (09:13)
[2019-03-23] MEDS: amLODIPine 10 MG TAB PO SCH (09:13)
[2019-03-23] MEDS: MULTIVITAMINS, THERA 1 EACH TAB PO SCH (09:13)
[2019-03-23] MEDS: AZITHROMYCIN 500 MG TAB PO SCH (09:13)
[2019-03-23] MEDS: hydrALAZINE HCL 25 MG TAB PO SCH ×3 (09:13→21:13)
--- NOTE | 2019-03-23 09:24 | P.PN ---
Subjective Patient is seen in follow-up for acute kidney injury on chronic kidney disease. Creatinine 5.11 today. Bicarb level up to 15. Hemoglobin 6.3. He continues to refuse blood transfusions. Complaining of a dry cough. He has been voiding. Vital signs are stable. General: The patient appeared well nourished and normally developed. HEENT: Head exam is unremarkable. Neck is without jugular venous distension. LUNGS: Lungs are clear to auscultation and percussion. Breath sounds decreased. HEART: Rate and Rhythm are regular. First and second heart sounds normal. No murmurs, rubs or gallops. ABDOMEN: Abdominal exam reveals normal bowel sounds. Non-tender and non- distended. EXTREMITITES: Trace edema. Right BKA noted. Objective - Vital Signs Vital signs: Vital Signs Temp 98.2 F 03/23/19 09:11 Pulse 117 H 03/23/19 09:11 Resp 20 03/23/19 09:11 BP 140/91 03/23/19 09:11 Pulse Ox 98 03/23/19 09:11 Intake & Output 03/22/19 03/23/19 03/23/19 18:59 06:59 18:59 Intake Total 490 1290 Output Total 400 720 Balance 90 570 Weight 76 kg 75.8 kg Intake: Intake, IV Titration 890 Amount Azithromycin 500 mg In 250 Sodium Chloride 0.9% 250 ml @ 250 mls/hr IVPB DAILY@1600 SAM Rx#: [id number] Desmopressin Acetate 23 50 mcg In Sodium Chloride 0. 9% 50 ml @ 200 mls/hr IVPB ONCE ONE Rx#: [id number] Dextrose 5% in Water 1, 590 000 ml @ 60 mls/hr IV . [id number] SAM with Sodium Bicarb (1 Meq/ml) 150 ml Rx#:[id number] Oral 490 400 Output: Urine 400 720 Other: # Voids 2 2 - Labs CBC & Chem 7: 03/23/19 05:57 03/23/19 05:57 Labs: Abnormal Lab Results - Last 24 Hours (Table) 03/21/19 03/22/19 03/22/19 Range/Units 08:30 12:13 17:27 WBC (3.8-10.6) k/uL RBC (4.30-5.90) m/uL Hgb (13.0-17.5) gm/dL Hct (39.0-53.0) % MCHC (31.0-37.0) g/dL RDW (11.5-15.5) % Neutrophils # (1.3-7.7) k/uL Lymphocytes # (1.0-4.8) k/uL PT (9.0-12.0) sec INR (<1.2) Carbon Dioxide (22-30) mmol/L BUN (9-20) mg/dL Creatinine (0.66-1.25) mg/dL Glucose (74-99) mg/dL POC Glucose (mg/dL) 244 H 183 H (75-99) mg/dL Calcium (8.4-10.2) mg/dL Crossmatch See Detail 03/22/19 03/23/19 03/23/19 Range/Units 20:05 05:57 05:57 WBC 16.0 H (3.8-10.6) k/uL RBC 2.23 L (4.30-5.90) m/uL Hgb 6.3 L* (13.0-17.5) gm/dL Hct 20.9 L (39.0-53.0) % MCHC 30.4 L (31.0-37.0) g/dL RDW 15.9 H (11.5-15.5) % Neutrophils # 15.0 H (1.3-7.7) k/uL Lymphocytes # 0.4 L (1.0-4.8) k/uL PT 67.2 H (9.0-12.0) sec INR 6.6 H* (<1.2) Carbon Dioxide (22-30) mmol/L BUN (9-20) mg/dL Creatinine (0.66-1.25) mg/dL Glucose (74-99) mg/dL POC Glucose (mg/dL) 238 H (75-99) mg/dL Calcium (8.4-10.2) mg/dL Crossmatch 03/23/19 03/23/19 Range/Units 05:57 06:12 WBC (3.8-10.6) k/uL RBC (4.30-5.90) m/uL Hgb (13.0-17.5) gm/dL Hct (39.0-53.0) % MCHC (31.0-37.0) g/dL RDW (11.5-15.5) % Neutrophils # (1.3-7.7) k/uL Lymphocytes # (1.0-4.8) k/uL PT (9.0-12.0) sec INR (<1.2) Carbon Dioxide 15 L (22-30) mmol/L BUN 108 H* (9-20) mg/dL Creatinine 5.11 H (0.66-1.25) mg/dL Glucose 254 H (74-99) mg/dL POC Glucose (mg/dL) 311 H (75-99) mg/dL Calcium 7.8 L (8.4-10.2) mg/dL Crossmatch Microbiology - Last 24 Hours (Table) 03/20/19 15:10 Blood Culture Gram Stain - Final Blood Blood Culture - Preliminary Staphylococcus epidermidis Assessment and Plan Plan: Assessment: 1. Acute kidney injury secondary to ATN secondary to acute blood loss anemia. Creatinine 5.1 today. 2. Chronic kidney disease stage IV/5 secondary to nephrosclerosis. 3. Hypertension with chronic kidney disease. Stable. 4. Chronic kidney disease mineral bone disease maintained on calcitriol. 5. Acute blood loss anemia. Hemoglobin 6.3 today. Patient refusing blood tr ansfusion. Status post IV DDAVP and March 22. 6. Metabolic acidosis secondary to acute kidney injury. Improving. 7. Right middle lobe pneumonia maintained on antibiotics. Plan: Continue bicarb drip at 60 mL an hour. Maintain oral sodium bicarbonate. Decrease Lasix to 40 mg orally once daily. Continue to monitor renal function and urine output. Replacement therapy has been extensively discussed with the patient outpatient. Patient wishes for no form of renal replacement therapy if indicated.
[2019-03-23] MEDS: FUROSEMIDE 40 MG TAB PO SCH (09:33)
[2019-03-23 10:37] VITALS: BMI 22.6
[2019-03-23] MEDS: ASPIRIN 325 MG TAB PO SCH (11:00)
[2019-03-23] MEDS ORDERED: FUROSEMIDE 10 MG/ML 4 ML VIAL IV STA (11:47)
[2019-03-23 12:05] LABS: Glucose,Whole Blood 180 mg/dL (75-99)
--- NOTE | 2019-03-23 13:18 | P.PN ---
Subjective Progress Note Date: 03/23/19 Principal diagnosis: Right middle lobe, right lower lobe, pneumonia complicated by acute exacerbation of COPD The patient is seen today for a 15 2020 in follow-up on the selective care unit. He is currently resting in bed. He is quite dyspneic with minimal exertion. He is being treated for right middle and lower lobe pneumonias along with COPD exacerbation. He also been quite anemic and acute on chronic renal failure. Maintaining O2 saturations in the upper 90s on 35% Ventimask. He is afebrile. Tachycardic. Hemoglobin 6.3. He is now agreeable to receiving blood tr ansfusions. One has been started. White count 16.0. INR 6.6. Sodium 138. Potassium 4.9. Bicarb 15. BUN 108. Creatinine 5.11. On oral bicarb. He is continued on DuoNeb inhalations, Symbicort, IV Solu-Medrol, antibiotics in the form of ceftriaxone and azithromycin. NicoDerm patches in place. Objective - Vital Signs Vital signs: Vital Signs Temp 97.6 F 03/23/19 12:51 Pulse 126 H 03/23/19 12:51 Resp 20 03/23/19 12:51 BP 145/69 03/23/19 12:51 Pulse Ox 98 03/23/19 12:51 Intake & Output 03/22/19 03/23/19 03/23/19 18:59 06:59 18:59 Intake Total 490 1290 110 Output Total 400 720 275 Balance 90 570 -165 Weight 76 kg 75.8 kg 75.8 kg Intake: IV 10 Invasive Line 1 10 Intake, IV Titration 890 Amount Azithromycin 500 mg In 250 Sodium Chloride 0.9% 250 ml @ 250 mls/hr IVPB DAILY@1600 SAM Rx#: [id number] Desmopressin Acetate 23 50 mcg In Sodium Chloride 0. 9% 50 ml @ 200 mls/hr IVPB ONCE ONE Rx#: [id number] Dextrose 5% in Water 1, 590 000 ml @ 60 mls/hr IV . [id number] SAM with Sodium Bicarb (1 Meq/ml) 150 ml Rx#:[id number] Oral 490 400 100 Blood Product 0 Rc As-1 Unit 0 [id number] Output: Urine 400 720 275 Other: # Voids 2 2 250 - Exam GENERAL EXAM: Frail cachectic pale 68-year-old gentleman, on 35% Ventimask, dyspneic with minimal exertion. HEAD: Normocephalic. EYES: Normal reaction of pupils, equal size. NOSE: Clear with pink turbinates. THROAT: No erythema or exudates. NECK: No masses, no JVD. CHEST: No chest wall deformity. LUNGS: Equal air entry with scattered rhonchi more so on the right, bilateral end expiratory wheeze, diminished CVS: S1 and S2 normal with no audible murmur, regular rhythm. Tachycardic. ABDOMEN: No hepatosplenomegaly, normal bowel sounds, no guarding or rigidity. SPINE: No scoliosis or deformity SKIN: No rashes CENTRAL NERVOUS SYSTEM: No focal deficits, tone is normal in all 4 extremities. EXTREMITIES: There is no peripheral edema. No clubbing, no cyanosis. Peripheral pulses are intact. - Labs CBC & Chem 7: 03/23/19 05:57 03/23/19 05:57 Labs: Abnormal Lab Results - Last 24 Hours (Table) 03/21/19 03/22/19 03/22/19 Range/Units 08:30 17:27 20:05 WBC (3.8-10.6) k/uL RBC (4.30-5.90) m/uL Hgb (13.0-17.5) gm/dL Hct (39.0-53.0) % MCHC (31.0-37.0) g/dL RDW (11.5-15.5) % Neutrophils # (1.3-7.7) k/uL Lymphocytes # (1.0-4.8) k/uL PT (9.0-12.0) sec INR (<1.2) Carbon Dioxide (22-30) mmol/L BUN (9-20) mg/dL Creatinine (0.66-1.25) mg/dL Glucose (74-99) mg/dL POC Glucose (mg/dL) 183 H 238 H (75-99) mg/dL Calcium (8.4-10.2) mg/dL Crossmatch See Detail 03/23/19 03/23/19 03/23/19 Range/Units 05:57 05:57 05:57 WBC 16.0 H (3.8-10.6) k/uL RBC 2.23 L (4.30-5.90) m/uL Hgb 6.3 L* (13.0-17.5) gm/dL Hct 20.9 L (39.0-53.0) % MCHC 30.4 L (31.0-37.0) g/dL RDW 15.9 H (11.5-15.5) % Neutrophils # 15.0 H (1.3-7.7) k/uL Lymphocytes # 0.4 L (1.0-4.8) k/uL PT 67.2 H (9.0-12.0) sec INR 6.6 H* (<1.2) Carbon Dioxide 15 L (22-30) mmol/L BUN 108 H* (9-20) mg/dL Creatinine 5.11 H (0.66-1.25) mg/dL Glucose 254 H (74-99) mg/dL POC Glucose (mg/dL) (75-99) mg/dL Calcium 7.8 L (8.4-10.2) mg/dL Crossmatch 03/23/19 03/23/19 Range/Units 06:12 11:56 WBC (3.8-10.6) k/uL RBC (4.30-5.90) m/uL Hgb (13.0-17.5) gm/dL Hct (39.0-53.0) % MCHC (31.0-37.0) g/dL RDW (11.5-15.5) % Neutrophils # (1.3-7.7) k/uL Lymphocytes # (1.0-4.8) k/uL PT (9.0-12.0) sec INR (<1.2) Carbon Dioxide (22-30) mmol/L BUN (9-20) mg/dL Creatinine (0.66-1.25) mg/dL Glucose (74-99) mg/dL POC Glucose (mg/dL) 311 H 180 H (75-99) mg/dL Calcium (8.4-10.2) mg/dL Crossmatch Microbiology - Last 24 Hours (Table) 03/20/19 15:10 Blood Culture Gram Stain - Final Blood Blood Culture - Preliminary Staphylococcus epidermidis Assessment and Plan Assessment: 1 Acute on chronic hypoxemic respiratory failure secondary to right middle lobe and right lower lobe pneumonia, Yamila by an acute exacerbation of COPD, anemia 2 Chronic and ongoing tobacco dependence 3 Previous right [id number] of dictation 4 Severe anemia most likely secondary to anemia of chronic disease from chronic kidney disease 5 Chronic kidney disease 6 Hyperlipidemia 7 Hypertension 8 History of DVT 9 History of pneumonia 10 Peripheral vascular occlusive disease Plan: The patient was seen and evaluated by Dr. Claire. He is now agreeable to receiving blood. This may help improve his hypoxemia. We'll continue with DuoNeb inhalations, IV Solu-Medrol, Symbicort. Continue antibiotics. His overall prognosis quite guarded. He is a DO NOT RESUSCITATE/DO NOT INTUBATE C ODE STATUS. We'll continue to follow. I, the cosigning physician, performed a history & physical examination of the patient. Lungs sounds with scattered rhonchi more so on the right, end expiratory wheeze, diminished. Maintaining good O2 saturations in the 90s on 35% Ventimask. I discussed the assessment and plan of care with my nurse practitioner, Shaneka Shrestha. I attest to the above note as dictated by her.
[2019-03-23] MEDS: DEXTROSE 5% IN WATER 1,000 ML with SODIUM BICARB (1 MEQ/ML) 150 ML IV SCH (15:59)
[2019-03-23 16:50] LABS: Glucose,Whole Blood 292 mg/dL (75-99)
--- NOTE | 2019-03-23 18:16 | PN ---
PROGRESS NOTE DATE OF SERVICE: 03/23/2019 This 68-year-old gentleman who was admitted with shortness of breath and COPD acute exacerbation as well as right lower lobe pneumonia, also had a gram-negative active infection with possible sepsis. Patient also has shortness of breath. The most recent chest x-ray which was reviewed by me showed no evidence of significant CHF at this time. The patient apparently refused transfusion on multiple occasions but currently the hemoglobin is persistently low at 6.3. Patient is short of breath. Patient also has acute hypoxic respiratory failure. Patient is considering the possibility of blood transfusion. The INR is 6.6 at this time and Coumadin is on hold at this time. PAST MEDICAL HISTORY: Reviewed. REVIEW OF SYSTEMS: CARDIOVASCULAR SYSTEM: No angina or palpitations. RESPIRATORY: As mentioned earlier. GI: As mentioned earlier. : No dysuria. NERVOUS SYSTEM: No numbness or weakness. MUSCULOSKELETAL: As mentioned earlier. CURRENT MEDICATIONS: 1. [place] 5 mg q.6h p.r.n. 2. DuoNeb q.i.d. and p.r.n. 3. Norvasc 10 mg p.o. daily. 4. Zithromax 500 mg p.o. daily. 5. Symbicort 4.5 two puffs b.i.d. 6. Rocaltrol 0.25 mcg Monday, Monday, Monday, Monday, , Monday, Monday. 7. Rocephin 1 g daily. 8. Aranesp. 9. Lasix 40 mg p.o. daily. 10.Sodium bicarb infusion. 11.Apresoline 25 mg p.o. t.i.d. 12.Ativan. 13.Solu-Medrol 40 IV q.8h. 14.Multivitamins. 15.Habitrol 14 daily. 16.Protonix. 17.Lyrica. 18.Sodium bicarb. PHYSICAL EXAM: Patient is alert, oriented x3. Pulse is 118, blood pressure is 130/80, respiration 20, temperature 98.1, pulse ox 90% on 35% Venti mask. HEENT: Conjunctivae pale. Oral mucosa pale. NECK: No jugular venous distention. No lymph node enlargement. CARDIOVASCULAR: S1, S2. RESPIRATORY: Diminished breath sounds at the bases. Bilateral scattered rhonchi and crackles. Expiratory wheezing also. ABDOMEN: Soft, obese, nontender. LEGS: No edema, no swelling. NERVOUS SYSTEM: No focal deficits. LABS: WBC 16, hemoglobin 6.3, and INR 6.6. BUN is 108, creatinine is 5.11. ASSESSMENT: 1. Shortness of breath, possible chronic obstructive pulmonary disease acute exacerbation with acute right lower lobe pneumonia and middle lobe pneumonia with possibly gram-negative with possible sepsis, present on admission. 2. Chronic renal failure stage 4, not on hemodialysis per patient's preference. 3. Anemia, multifactorial, possibly secondary to renal failure, severe, in need of transfusion, the patient refused earlier. 4. Elevated plasma lactic acid, possibly secondary to sepsis, present on admission. 5. Metabolic acidosis secondary renal failure. 6. Hyponatremia. 7. Increased WBC. 8. Anemia. 9. Troponin 0.04, indeterminate. 10.Mild Coumadin coagulopathy. 11.Mild to moderate protein calorie malnutrition. 12.History of chronic obstructive pulmonary disease. 13.Diabetes mellitus type 2 with hyperglycemia. 14.History of deep venous thrombosis. 15.Hypertension. 16.Hyperlipidemia. 17.History of chronic renal disease. 18.History of an ongoing nicotine dependence. 19.NO CODE, NO CPR, NO VENT. RECOMMENDATIONS AND DISCUSSION: In this 68-year-old gentleman who presented with multiple complex medical issues, we will monitor the patient closely, continue the current medications, continue symptomatic treatment management. Hemoglobin is today at 6.3 but, however, because of increased difficulty the patient has agreed to have 1 unit transfusion. We will continue to monitor. Otherwise, hold Coumadin, monitor blood sugars closely, Lasix 40 after transfusion. Repeat labs. Continue the rest of medications. Guarded prognosis because of multiple complex medical issues. Further recommendations to follow. MMODL / IJN: [id number] /
[2019-03-23 20:53] LABS: Glucose,Whole Blood 302 mg/dL (75-99)
[2019-03-23] MEDS: LORazepam 0.5 MG TAB PO PRN (21:12)
[2019-03-23] MEDS: HYDROcodone/APAP 5-325MG 1 EACH TAB PO PRN (21:13)
[2019-03-24] MEDS: methylPREDNISolone SOD SUCCI 125 MG/2 ML VIAL IV SCH ×3 (01:30→17:29)
[2019-03-24] MEDS: DEXTROSE 5% IN WATER 1,000 ML with SODIUM BICARB (1 MEQ/ML) 150 ML IV SCH ×2 (01:50→07:00)
[2019-03-24 05:50] LABS: Glucose,Whole Blood 321 mg/dL (75-99)
[2019-03-24] MEDS: PANTOPRAZOLE 40 MG TABLET PO SCH (06:18)
[2019-03-24] MEDS: INSULIN ASPART (NovoLOG) 100 UNIT/ML VIAL SQ SCH ×3 (06:18→17:30)
[2019-03-24 06:28] LABS: Calcium 7.2 mg/dL (8.4-10.2); Magnesium 2.1 mg/dL (1.6-2.3); Potassium 3.9 mmol/L (3.5-5.1)
[2019-03-24] MEDS: IPRATROPIUM-ALBUTEROL 3 ML NEB INHALATION SCH ×3 (08:02→15:38)
[2019-03-24] MEDS: SYMBICORT 160-4.5 MCG INHALER INHALATION SCH (08:02)
[2019-03-24 08:29] LABS: HCT 20.7 % (39.0-53.0); Hypochromasia Slight; MCH 28.4 pg (25.0-35.0); MCHC 31.9 g/dL (31.0-37.0); MCV 89.1 fL (80.0-100.0); Mean Platelet Volume 8.4; Platelet Count 320 k/uL (150-450); Poikilocytosis Slight; RBC 2.32 m/uL (4.30-5.90); RDW 15.7 % (11.5-15.5); WBC 12.2 k/uL (3.8-10.6)
[2019-03-24 08:33] LABS: HGB 6.6 gm/dL (13.0-17.5)
[2019-03-24 08:40] LABS: Prothrombin Time 56.1 sec (9.0-12.0)
[2019-03-24 08:47] LABS: INR 5.6 (<1.2)
[2019-03-24] MEDS ORDERED: FUROSEMIDE 40 MG TAB PO SCH (09:00)
[2019-03-24] MEDS ORDERED: METOPROLOL TARTRATE 25 MG TAB PO SCH (09:15)
[2019-03-24] MEDS: MULTIVITAMINS, THERA 1 EACH TAB PO SCH (09:19)
[2019-03-24] MEDS: AZITHROMYCIN 500 MG TAB PO SCH (09:19)
[2019-03-24] MEDS: hydrALAZINE HCL 25 MG TAB PO SCH ×2 (09:19→17:30)
[2019-03-24] MEDS: amLODIPine 10 MG TAB PO SCH (09:19)
[2019-03-24] MEDS: NICOTINE 14MG/24HR PATCH TRANSDERM SCH (09:19)
[2019-03-24] MEDS: SODIUM BICARBONATE TAB 650 MG TAB PO SCH ×2 (09:19→17:30)
--- NOTE | 2019-03-24 09:49 | P.PN ---
Subjective Patient is seen in follow-up for acute kidney injury on chronic kidney disease. Renal function slightly better. Creatinine 4.82 today. Bicarb level up to 20. Hemoglobin 6.6 this morning. He agreed to blood transfusion. Complaining of a dry cough. He has been voiding. Vital signs are stable. General: The patient appeared well nourished and normally developed. HEENT: Head exam is unremarkable. Neck is without jugular venous distension. LUNGS: Lungs are clear to auscultation and percussion. Breath sounds decreased. HEART: Rate and Rhythm are regular. First and second heart sounds normal. No murmurs, rubs or gallops. ABDOMEN: Abdominal exam reveals normal bowel sounds. Non-tender and non- distended. EXTREMITITES: Trace edema. Right BKA noted. Objective - Vital Signs Vital signs: Vital Signs Temp 98.3 F 03/23/19 20:00 Pulse 123 H 03/24/19 08:18 Resp 20 03/24/19 04:00 BP 168/74 03/23/19 20:00 Pulse Ox 96 03/24/19 08:06 Intake & Output 03/23/19 03/24/19 03/24/19 18:59 06:59 18:59 Intake Total 760 2120 Output Total 525 1100 Balance 235 1020 Weight 75.8 kg 76.5 kg Intake: IV 250 Dextrose 5% in Water 1, 240 000 ml @ 60 mls/hr IV . [id number] SAM with Sodium Bicarb (1 Meq/ml) 150 ml Rx#:[id number] Invasive Line 1 10 Intake, IV Titration 50 1280 Amount Dextrose 5% in Water 1, 1280 000 ml @ 60 mls/hr IV . [id number] SAM with Sodium Bicarb (1 Meq/ml) 150 ml Rx#:[id number] cefTRIAXone 1 gm In 50 Sodium Chloride 0.9% 50 ml @ 100 mls/hr IVPB Q24HR SAM Rx#:[id number] Oral 150 840 Blood Product 310 Rc As-1 Unit 310 [id number] Output: Urine 525 1100 Other: Voiding Method Urinal Urinal # Voids 250 1 - Labs CBC & Chem 7: 03/24/19 05:38 03/24/19 05:38 Labs: Abnormal Lab Results - Last 24 Hours (Table) 03/21/19 03/23/19 03/23/19 Range/Units 08:30 11:56 16:44 WBC (3.8-10.6) k/uL RBC (4.30-5.90) m/uL Hgb (13.0-17.5) gm/dL Hct (39.0-53.0) % RDW (11.5-15.5) % PT (9.0-12.0) sec INR (<1.2) Carbon Dioxide (22-30) mmol/L BUN (9-20) mg/dL Creatinine (0.66-1.25) mg/dL Glucose (74-99) mg/dL POC Glucose (mg/dL) 180 H 292 H (75-99) mg/dL Calcium (8.4-10.2) mg/dL Crossmatch See Detail 03/23/19 03/24/19 03/24/19 Range/Units 20:52 05:38 05:38 WBC 12.2 H (3.8-10.6) k/uL RBC 2.32 L (4.30-5.90) m/uL Hgb 6.6 L* (13.0-17.5) gm/dL Hct 20.7 L (39.0-53.0) % RDW 15.7 H (11.5-15.5) % PT (9.0-12.0) sec INR (<1.2) Carbon Dioxide 20 L (22-30) mmol/L BUN 110 H* (9-20) mg/dL Creatinine 4.82 H (0.66-1.25) mg/dL Glucose 264 H (74-99) mg/dL POC Glucose (mg/dL) 302 H (75-99) mg/dL Calcium 7.2 L (8.4-10.2) mg/dL Crossmatch 03/24/19 03/24/19 Range/Units 05:48 08:03 WBC (3.8-10.6) k/uL RBC (4.30-5.90) m/uL Hgb (13.0-17.5) gm/dL Hct (39.0-53.0) % RDW (11.5-15.5) % PT 56.1 H (9.0-12.0) sec INR 5.6 H* (<1.2) Carbon Dioxide (22-30) mmol/L BUN (9-20) mg/dL Creatinine (0.66-1.25) mg/dL Glucose (74-99) mg/dL POC Glucose (mg/dL) 321 H (75-99) mg/dL Calcium (8.4-10.2) mg/dL Crossmatch Microbiology - Last 24 Hours (Table) 03/20/19 15:10 Blood Culture Gram Stain - Final Blood Blood Culture - Preliminary Staphylococcus epidermidis Assessment and Plan Plan: Assessment: 1. Acute kidney injury secondary to ATN secondary to acute blood loss anemia. Renal function slightly better. Creatinine 4.82 today. 2. Chronic kidney disease stage IV/5 secondary to nephrosclerosis. 3. Hypertension with chronic kidney disease. Stable. 4. Chronic kidney disease mineral bone disease maintained on calcitriol. 5. Acute blood loss anemia. Hemoglobin 6.6 today. Patient agreed to receiving blood transfusions. Status post IV DDAVP and March 22. 6. Metabolic acidosis secondary to acute kidney injury. Improving. 7. Right middle lobe pneumonia maintained on antibiotics. Plan: Hep-Lock IV fluids. Maintain oral sodium bicarbonate. Maintain Lasix 40 mg orally once daily. Continue to monitor renal function and urine output. Replacement therapy has been extensively discussed with the patient outpatient. Patient wishes for no form of renal replacement therapy if indicated. Follow-up echocardiogram. Repeat IV DDAVP today.
[2019-03-24] MEDS ORDERED: DESMOPRESSIN ACETATE 24 MCG in SODIUM CHLORIDE 0.9% 50 ML IVPB ONE (10:00)
[2019-03-24] MEDS ORDERED: PHYTONADIONE ORAL 5 MG/5 ML ORAL.SYRG PO STA (10:29)
[2019-03-24 11:27] LABS: Glucose,Whole Blood 212 mg/dL (75-99)
--- NOTE | 2019-03-24 11:37 | P.CRDCN ---
History of Present Illness History of present illness: HISTORY OF PRESENTING ILLNESS This is a pleasant 68-year-old male past medical history significant for COPD, chronic kidney disease, diabetes mellitus, hypertension, dyslipidemia, DVT on Coumadin, chronic anemia and peripheral vascular disease status post right AKA. He denies prior history of coronary artery disease and does not follow with a dinkey brakeman for any reason. We have been asked to see in consultation for new-onset atrial fibrillation. He presented to the hospital March 20 with symptoms of cough congestion and shortness of breath. He has been diagnosed with pneumonia. Initial EKG upon admission to the emergency department revealed sinus tachycardia with a heart rate of 105 with poor R-wave progression and sinus arrhythmia. Repeat EKG this morning revealed atrial fibrillation with rapid ventricular response heart rate has been running in the 120s through the night. He is seen and examined sitting up in bed in no acute distress. He denies symptoms of chest pain or palpitations. Chest x-ray performed yesterday reveals improved aeration of the right middle lobe with a small right-sided effusion ongoing. Laboratory data reviewed, WBC 12.2, hemo globin 6.6, INR 5.6, sodium 137, potassium 3.9, creatinine 4.82, magnesium 2.1, troponins on admission 0.044 and 0.045, NT proBNP on admission 4300, lactic acid 2.3, 3.7, 2.8 and 0.8. Crit daily cardiac medications include Coumadin 10 mg Monday and Monday and 5 mg Monday, Monday, and Monday, amlodipine 10 mg daily, aspirin 325 mg daily, hydralazine 25 mg 3 times a day and Lasix 40 mg twice a day. Most recent echocardiogram obtained in 2017 reveals preserved LV systolic function with ejection fraction 50-55%, mild aortic valve sclerosis with mild stenosis and a mean gradient of 8.5 mmHg, mild MR and mild TR. REVIEW OF SYSTEMS At the time of my exam: CONSTITUTIONAL: Denies fever or chills. CARDIOVASCULAR: Denies chest pain, shortness of breath, orthopnea, PND or palp itations. RESPIRATORY: Complains of cough. GASTROINTESTINAL: Denies abdominal pain, diarrhea, constipation, nausea or vomiting. MUSCULOSKELETAL: Denies myalgias. NEUROLOGIC: Denies numbness, tingling or weakness. ENDOCRINE: Denies fatigue, weight change, polydipsia or polyurina. GENITOURINARY: Denies burning, hematuria or urgency with micturation. HEMATOLOGIC: Denies history of anemia or bleeding. PHYSICAL EXAMINATION Blood pressure 168/74 heart rate 103 afebrile and maintaining oxygen saturation on Ventimask CONSTITUTIONAL: No apparent distress. HEENT: Head is normocephalic. Pupils are equal, round. Sclerae anicteric. Mucous membranes of the mouth are moist. No JVD. No carotid bruit. CHEST EXAMINATION: Lungs are clear to auscultation. No chest wall tenderness is noted on palpation or with deep breathing. HEART EXAMINATION: Regular rate and rhythm. S1, S2 heard. No murmurs, gallops or rub. ABDOMEN: Soft, nontender. Positive bowel sounds. EXTREMITIES: 2+ peripheral pulses, no lower extremity edema and no calf tenderness. NEUROLOGIC EXAMINATION: Patient is awake, alert and oriented x3. ASSESSMENT New onset paroxysmal atrial fibrillation with rapid ventricular response Pneumonia Lactic acidosis Sepsis Leukocytosis Troponin elevation not indicative of an acute coronary event, secondary to cardiorenal syndrome and sepsis. Anemia, chronic. Status post blood transfusion Supratherapeutic INR History of DVT on Coumadin PLAN Initiate on lopressor 25 mg BID. Repeat 2D echocardiogram and doppler study to assess cardiac structure and function. Continue to hold coumadin due to anemia. Give vitamin K 10 mg now and repeat the dose in 6 hours. We will continue to follow and make recommendations accordingly. Thank you kindly for this consultation. Nurse Practitioner note has been reviewed, I agree with a documented findings and plan of care. Patient was seen and examined. Past Medical History Past Medical History: COPD, Diabetes Mellitus, Deep Vein Thrombosis (DVT), Hyperlipidemia, Hypertension, Pneumonia, Renal Disease Additional Past Medical History / Comment(s): stage V renal failure, refuses dialysis History of Any Multi-Drug Resistant Organisms: None Reported Additional Past Surgical History / Comment(s): right aka, bilat fem pop, all staci th pulled Past Anesthesia/Blood Transfusion Reactions: No Reported Reaction Past Psychological History: No Psychological Hx Reported Smoking Status: Current every day smoker Past Alcohol Use History: None Reported Additional Past Alcohol Use History / Comment(s): Smokes 1pack a day. Drinks a beer on occasion. Lives at home with 1 dog and 1 cat and a room mate he never sees. Drives. Past Drug Use History: None Reported - Past Family History Father History Unknown: Yes Additional Family Medical History / Comment(s): from blood clot back in 1968 Mother History Unknown: Yes Additional Family Medical History / Comment(s): at 94 Medications and Allergies Home Medications Medication Instructions Recorded Confirmed Type amLODIPine [Norvasc] 10 mg PO DAILY 04/17/16 03/20/19 History Pregabalin [Lyrica] 50 mg PO TID PRN 08/03/17 03/20/19 History Warfarin [Coumadin] 5 mg PO SUTUTHSA 08/03/17 03/20/19 History Calcitriol 0.25 mcg PO SUMOTUWETHFR 01/09/18 03/20/19 History Furosemide [Lasix] 40 mg PO BID 01/09/18 03/20/19 History Warfarin [Coumadin] 10 mg PO MOWEFR 01/09/18 03/20/19 History hydrALAZINE HCL 25 mg PO TID 01/09/18 03/20/19 History Albuterol Sulfate [Proair Hfa] 2 puff INHALATION RT-Q4H PRN 03/20/19 03/20/19 History Aspirin EC [Ecotrin] 325 mg PO DAILY 03/20/19 03/20/19 History Budesonide/Formoterol Fumarate 2 puff INHALATION RT-BID 03/20/19 03/20/19 History [Symbicort 160-4.5 Mcg Inhaler] Allergies Allergy/AdvReac Type Severity Reaction Status Date / Time No Known Allergies Allergy Verified 03/20/19 15:54 Physical Exam Vitals: Vital Signs Temp Pulse Pulse Resp BP BP Pulse Ox 03/24/19 08:18 123 H 03/24/19 08:06 121 H 96 03/24/19 04:00 121 H 20 03/24/19 00:00 121 H 20 03/23/19 21:43 112 H 03/23/19 21:26 117 H 96 03/23/19 20:00 98.3 F 121 H 20 168/74 99 03/23/19 16:09 116 H 03/23/19 16:04 122 H 03/23/19 15:50 98.2 F 122 H 122 H 20 135/74 135/74 98 03/23/19 13:28 98.1 F 118 H 20 139/80 96 03/23/19 12:58 97.5 F L 110 H 20 125/66 03/23/19 12:51 97.6 F 126 H 20 145/69 98 03/23/19 12:48 97.6 F 126 H 20 145/69 98 03/23/19 11:43 104 H 03/23/19 11:37 108 H Intake and Output 03/23/19 03/24/19 03/24/19 22:59 06:59 14:59 Intake Total 1440 1040 Output Total 1100 Balance 1440 -60 Intake: Intake, IV Titration 640 640 Amount Dextrose 5% in Water 1, 640 640 000 ml @ 60 mls/hr IV . [id number] SAM with Sodium Bicarb (1 Meq/ml) 150 ml Rx#:[id number] Oral 490 400 Blood Product 310 Rc As-1 Unit 310 [id number] Output: Urine 1100 Other: Voiding Method Urinal Urinal # Voids 1 Weight 76.5 kg Results 03/24/19 05:38 03/24/19 05:38 Coagulation 03/24/19 Range/Units 08:03 PT 56.1 H (9.0-12.0) sec CBC 03/24/19 Range/Units 05:38 WBC 12.2 H (3.8-10.6) k/uL RBC 2.32 L (4.30-5.90) m/uL Hgb 6.6 L* (13.0-17.5) gm/dL Hct 20.7 L (39.0-53.0) % Plt Count 320 (150-450) k/uL Comprehensive Metabolic Panel 03/24/19 Range/Units 05:38 Sodium 137 (137-145) mmol/L Potassium 3.9 (3.5-5.1) mmol/L Chloride 103 (98-107) mmol/L Carbon Dioxide 20 L (22-30) mmol/L BUN 110 H* (9-20) mg/dL Creatinine 4.82 H (0.66-1.25) mg/dL Glucose 264 H (74-99) mg/dL Calcium 7.2 L (8.4-10.2) mg/dL Current Medications Generic Name Dose Route Start Last Admin Trade Name Freq PRN Reason Stop Dose Admin Hydrocodone Bitart/Acetaminophen 1 each 03/20/19 17:56 03/23/19 21:13 [place] 5-325 PO 1 each Q6HR PRN Administration Pain Albuterol/Ipratropium 3 ml 03/20/19 16:00 03/24/19 08:02 Duoneb 0.5 Mg-3 Mg/3 Ml Soln INHALATION 3 ml RT-QID SAM Administration Albuterol/Ipratropium 3 ml 03/20/19 15:13 Duoneb 0.5 Mg-3 Mg/3 Ml Soln INHALATION RT-Q4H PRN shortness of breath Amlodipine Besylate 10 mg 03/21/19 09:00 03/24/19 09:19 Norvasc PO 10 mg DAILY SAM Administration Azithromycin 500 mg 03/23/19 09:00 03/24/19 09:19 Zithromax PO 500 mg DAILY [facility] Administration Budesonide/Formoterol Fumarate 2 puff 03/20/19 20:00 03/24/19 08:02 Symbicort 160-4.5 Mcg Inhaler INHALATION 2 puff RT-BID SAM Administration Calcitriol 0.25 mcg 03/20/19 18:00 03/22/19 21:30 Rocaltrol PO Not Given SUMOTUWETHFR [facility] Darbepoetin Ruiz 40 mcg 03/22/19 11:00 03/22/19 12:44 Aranesp SQ 40 mcg Q7D [facility] Administration Furosemide 40 mg 03/24/19 09:00 03/24/19 09:19 Lasix PO 40 mg DAILY [facility] Administration Guaifenesin 400 mg 03/20/19 20:02 03/20/19 20:20 Robitussin PO 400 mg Q4H PRN Administration Cough Hydralazine HCl 25 mg 03/20/19 22:00 03/24/19 09:19 Apresoline PO 25 mg TID [facility] Administration Insulin Aspart 0 unit 03/20/19 21:00 03/24/19 06:18 Novolog SQ 4 unit ACHS [facility] Administration Protocol Lorazepam 0.5 mg 03/20/19 17:56 03/23/19 21:12 Ativan PO 0.5 mg Q8HR PRN Administration Anxiety Methylprednisolone Sodium Succinate 40 mg 03/23/19 00:00 03/24/19 09:19 Solu-Medrol IV 40 mg Q8HR SAM Administration Metoprolol Tartrate 25 mg 03/24/19 09:15 02/16/20 09:18 Lopressor PO 25 mg BID SAM Administration Miscellaneous Information 1 each 03/20/19 15:13 Pneumonia Protocol Utilized PO ONCE PRN Per Protocol Multivitamins 1 each 03/21/19 12:00 03/24/19 09:19 Theragran PO 1 each DAILY@1200 SAM Administration Nicotine 1 patch 03/20/19 18:00 03/24/19 09:19 Habitrol 14mg/24hr Patch TRANSDERM 1 patch DAILY SAM Administration Pantoprazole Sodium 40 mg 03/21/19 07:30 03/24/19 06:18 Protonix PO 40 mg [id number] SAM Administration Pregabalin 50 mg 03/20/19 17:54 03/21/19 06:46 Lyrica PO 50 mg TID PRN Administration Pain Sodium Bicarbonate 650 mg 03/21/19 18:00 03/24/19 09:19 Sodium Bicarbonate Tab PO 650 mg TID SAM Administration Intake and Output 03/23/19 03/24/19 03/24/19 22:59 06:59 14:59 Intake Total 1440 1040 Output Total 1100 Balance 1440 -60 Intake: Intake, IV Titration 640 640 Amount Dextrose 5% in Water 1, 640 640 000 ml @ 60 mls/hr IV . [id number] SAM with Sodium Bicarb (1 Meq/ml) 150 ml Rx#:[id number] Oral 490 400 Blood Product 310 Rc As-1 Unit 310 [id number] Output: Urine 1100 Other: Voiding Method Urinal Urinal # Voids 1 Weight 76.5 kg 03/24/19 05:38 03/24/19 05:38
--- NOTE | 2019-03-24 11:59 | P.PN ---
Subjective Progress Note Date: 03/24/19 Principal diagnosis: Right middle lobe, right lower lobe, pneumonia complicated by acute exacerbation of COPD The patient is seen today 03/24/2019 in follow-up on the selective care unit. He is currently resting in bed. Quite weak and debilitated. Now on 35% FiO2 via Ventimask to maintain O2 saturations in the mid 90s. He's been afebrile. Remains in atrial fibrillation with varying ventricular response. He is agreeable to a second unit of blood. Hemoglobin today 6.6. White count 12.2. Sodium 137. Potassium 3.9. BUN 110 Creatinine 4.82. Bicarb 20. INR 5.6. He i s continued on sodium bicarb orally along with Aranesp. He is continued on DuoNeb inhalations, Symbicort, IV Solu-Medrol. NicoDerm patch is in place. Empiric antibiotics in the form of azithromycin. Objective - Vital Signs Vital signs: Vital Signs Temp 97.7 F 03/24/19 10:41 Pulse 88 03/24/19 10:41 Resp 24 03/24/19 10:41 BP 123/74 03/24/19 10:41 Pulse Ox 95 03/24/19 10:41 Intake & Output 03/23/19 03/24/19 03/24/19 18:59 06:59 18:59 Intake Total 760 2120 12 Output Total 525 1100 Balance 235 1020 12 Weight 75.8 kg 76.5 kg Intake: IV 250 12 Dextrose 5% in Water 1, 240 000 ml @ 60 mls/hr IV . [id number] SAM with Sodium Bicarb (1 Meq/ml) 150 ml Rx#:[id number] Invasive Line 1 10 Invasive Line 2 2 Invasive Line 3 10 Intake, IV Titration 50 1280 Amount Dextrose 5% in Water 1, 1280 000 ml @ 60 mls/hr IV . [id number] SAM with Sodium Bicarb (1 Meq/ml) 150 ml Rx#:[id number] cefTRIAXone 1 gm In 50 Sodium Chloride 0.9% 50 ml @ 100 mls/hr IVPB Q24HR SAM Rx#:[id number] Oral 150 840 Blood Product 310 0 Rc As-1 Unit 310 [id number] Rc As-1 Unit 0 [id number] Output: Urine 525 1100 Other: Voiding Method Urinal Urinal Urinal # Voids 250 1 - Exam GENERAL EXAM: Frail, cachectic pale 68-year-old gentleman, on 35% Ventimask, dyspneic with minimal exertion. HEAD: Normocephalic. EYES: Normal reaction of pupils, equal size. NOSE: Clear with pink turbinates. THROAT: No erythema or exudates. NECK: No masses, no JVD. CHEST: No chest wall deformity. LUNGS: Equal air entry with scattered rhonchi more so on the right, bilateral end expiratory wheeze, diminished CVS: S1 and S2 normal with no audible murmur, regular rhythm. Tachycardic. ABDOMEN: No hepatosplenomegaly, normal bowel sounds, no guarding or rigidity. SPINE: No scoliosis or deformity SKIN: No rashes CENTRAL NERVOUS SYSTEM: No focal deficits, tone is normal in all 4 extremities. EXTREMITIES: There is no peripheral edema. No clubbing, no cyanosis. Peripheral pulses are intact. - Labs CBC & Chem 7: 03/24/19 05:38 03/24/19 05:38 Labs: Abnormal Lab Results - Last 24 Hours (Table) 03/21/19 03/23/19 03/23/19 Range/Units 08:30 11:56 16:44 WBC (3.8-10.6) k/uL RBC (4.30-5.90) m/uL Hgb (13.0-17.5) gm/dL Hct (39.0-53.0) % RDW (11.5-15.5) % PT (9.0-12.0) sec INR (<1.2) Carbon Dioxide (22-30) mmol/L BUN (9-20) mg/dL Creatinine (0.66-1.25) mg/dL Glucose (74-99) mg/dL POC Glucose (mg/dL) 180 H 292 H (75-99) mg/dL Calcium (8.4-10.2) mg/dL Crossmatch See Detail 03/23/19 03/24/19 03/24/19 Range/Units 20:52 05:38 05:38 WBC 12.2 H (3.8-10.6) k/uL RBC 2.32 L (4.30-5.90) m/uL Hgb 6.6 L* (13.0-17.5) gm/dL Hct 20.7 L (39.0-53.0) % RDW 15.7 H (11.5-15.5) % PT (9.0-12.0) sec INR (<1.2) Carbon Dioxide 20 L (22-30) mmol/L BUN 110 H* (9-20) mg/dL Creatinine 4.82 H (0.66-1.25) mg/dL Glucose 264 H (74-99) mg/dL POC Glucose (mg/dL) 302 H (75-99) mg/dL Calcium 7.2 L (8.4-10.2) mg/dL Crossmatch 03/24/19 03/24/19 03/24/19 Range/Units 05:48 08:03 11:26 WBC (3.8-10.6) k/uL RBC (4.30-5.90) m/uL Hgb (13.0-17.5) gm/dL Hct (39.0-53.0) % RDW (11.5-15.5) % PT 56.1 H (9.0-12.0) sec INR 5.6 H* (<1.2) Carbon Dioxide (22-30) mmol/L BUN (9-20) mg/dL Creatinine (0.66-1.25) mg/dL Glucose (74-99) mg/dL POC Glucose (mg/dL) 321 H 212 H (75-99) mg/dL Calcium (8.4-10.2) mg/dL Crossmatch Microbiology - Last 24 Hours (Table) 03/20/19 15:10 Blood Culture Gram Stain - Final Blood Blood Culture - Final Staphylococcus epidermidis Assessment and Plan Assessment: 1 Acute on chronic hypoxemic respiratory failure secondary to right middle lobe and right lower lobe pneumonia, complicated by an acute exacerbation of COPD, an emia 2 Chronic and ongoing tobacco dependence 3 Previous right [id number] of dictation 4 Severe anemia most likely secondary to anemia of chronic disease from chronic kidney disease. Receiving a second unit of blood this admission. 5 Chronic kidney disease, current creatinine 4.82. 6 Hyperlipidemia 7 Hypertension 8 History of DVT 9 History of pneumonia 10 Peripheral vascular occlusive disease Plan: The patient was seen and evaluated by Dr. Claire. We'll continue with DuoNeb inhalations, IV Solu-Medrol, Symbicort. Continue antibiotics. His overall prognosis quite guarded. He is a DO NOT RESUSCITATE/DO NOT INTUBATE CODE STATUS. Receiving a second unit of blood. We'll continue to follow. I, the cosigning physician, performed a history & physical examination of the patient. Lungs sounds with scattered rhonchi more so on the right, end expiratory wheeze, diminished. Maintaining good O2 saturations in the 90s on 35% Ventimask. I discussed the assessment and plan of care with my nurse practitioner, Shaneka Shrestha. I attest to the above note as dictated by her.
[2019-03-24 13:34] VITALS: TEMP 97.3
[2019-03-24] MEDS ORDERED: PHYTONADIONE ORAL 5 MG/5 ML ORAL.SYRG PO ONE (16:30)
[2019-03-24 16:44] LABS: Glucose,Whole Blood 299 mg/dL (75-99)
[2019-03-24 17:28] VITALS: BP 120/67; PULSE 114; RESP 24
[2019-03-24] MEDS: CALCITRIOL 0.25 MCG CAP PO SCH (17:30)
--- NOTE | 2019-03-24 22:01 | PN ---
PROGRESS NOTE DATE OF SERVICE: 03/24/2019 This 68-year-old gentleman, admitted with shortness of breath, multifactorial, also had significant anemia. Hemoglobin has dropped down to 5.6. The patient was initially against transfusion, but currently the patient is willing to try one transfusion. At this time the patient is being closely monitored. Patient is on Ventimask because of respiratory failure. Multiple consultants are following the patient closely. The patient is currently NO CODE. PAST MEDICAL HISTORY: Reviewed. REVIEW OF SYSTEMS: CARDIOVASCULAR SYSTEM: As mentioned earlier. RESPIRATORY: As mentioned earlier. GI: No nausea. : No dysuria. CURRENT MEDICATIONS: 1. [place] 5 mg. 2. DuoNeb q.i.d. and p.r.n. 3. Norvasc. 4. Zithromax. 5. Symbicort. 6. Rocephin. 7. Lasix. 8. Robitussin. 9. Apresoline. 10.Solu-Medrol. Doses are reviewed. PHYSICAL EXAM: Patient is alert and oriented x2. Pulse 114, blood pressure 126/70, respiration 20, temperature 97.3, pulse ox 93% on Ventimask. HEENT: Conjunctivae normal. Oral mucosa moist. NECK: No jugular venous distention. No lymph node enlargement. CARDIOVASCULAR: S1, S2. RESPIRATORY: Diminished breath sounds at the bases. Bilateral scattered rhonchi and crackles. ABDOMEN: Soft, nontender. LEGS: No edema, no swelling. NERVOUS SYSTEM: Diffusely weak. LAB STUDIES: Hemoglobin 5.6, WBC 12.2, INR is 5.2, creatinine 4.82. ASSESSMENT: 1. Shortness of breath possibly chronic obstructive pulmonary disease acute exacerbation with acute right lower lobe pneumonia and middle lobe pneumonia with possibly gram-negative and possible sepsis, present on admission with acute hypoxic respiratory failure. 2. Chronic renal failure stage 4, not on hemodialysis per patient's preference. 3. Anemia, multifactorial, possible acute renal failure, severe need of transfusion. The patient refused failure. 4. Elevated plasma lactic acid, possibly secondary to sepsis, present on admission. 5. Metabolic acidosis secondary to renal failure. 6. Hyponatremia. 7. History of increased WBC. 8. Anemia. 9. Troponin 0.05, indeterminate. 10.Mild Coumadin coagulopathy. 11.Mild to moderate protein calorie malnutrition. 12.History of chronic obstructive pulmonary disease. 13.Diabetes mellitus type 2 with hyperglycemia. 14.History of deep venous thrombosis. 15.Hypertension. 16.Hyperlipidemia. 17.History of chronic renal disease. 18.History of ongoing nicotine dependence. 19.NO CODE, NO CPR, NO VENT. RECOMMENDATIONS AND DISCUSSION: In this 68-year-old gentleman who presented with multiple complex medical issues, at this time we will continue current medication, continue symptomatic treatment. Patient is considering transfusion. Patient also debating about the possibility of hospice also. We will continue to monitor. The prognosis is extremely guarded because of multiple complex medical issues. Further recommendations to follow. MMODL / IJN: [id number] /
== END 2019-03-24 19:33 | disposition hospice, inpatient (51) | DRG 871 ==
LOC: EC 12:44 → 6NMEDSUR 15:13 → 3SCARD 21:13
PROVIDERS: ADMIT Hospitalist; ATTEND Hospitalist
PROC: 30233N1 Transfusion of Nonautologous Red Blood Cells into Peripheral Vein, Percutaneous Approach (ICD-10-PCS; principal; 2019-03-23)
DX: A41.1 Sepsis due to other specified staphylococcus (principal); N17.0 Acute kidney failure with tubular necrosis; J96.21 Acute and chronic respiratory failure with hypoxia; J15.6 Pneumonia due to other Gram-negative bacteria; E44.0 Moderate protein-calorie malnutrition; E87.2 Acidosis; I13.11 Hypertensive heart and chronic kidney disease without heart failure, with stage 5 chronic kidney disease, or end stage renal disease; J44.0 Chronic obstructive pulmonary disease with (acute) lower respiratory infection; J44.1 Chronic obstructive pulmonary disease with (acute) exacerbation; E87.1 Hypo-osmolality and hyponatremia; D62 Acute posthemorrhagic anemia; N18.5 Chronic kidney disease, stage 5; R65.20 Severe sepsis without septic shock; E83.9 Disorder of mineral metabolism, unspecified; D63.1 Anemia in chronic kidney disease; E11.22 Type 2 diabetes mellitus with diabetic chronic kidney disease; E11.51 Type 2 diabetes mellitus with diabetic peripheral angiopathy without gangrene; E11.65 Type 2 diabetes mellitus with hyperglycemia; E78.5 Hyperlipidemia, unspecified; Z66 Do not resuscitate; Z51.5 Encounter for palliative care; F17.210 Nicotine dependence, cigarettes, uncomplicated; H91.90 Unspecified hearing loss, unspecified ear; H53.9 Unspecified visual disturbance; I70.209 Unspecified atherosclerosis of native arteries of extremities, unspecified extremity; I08.1 Rheumatic disorders of both mitral and tricuspid valves; I48.0 Paroxysmal atrial fibrillation; T45.515A Adverse effect of anticoagulants, initial encounter; Z53.29 Procedure and treatment not carried out because of patient's decision for other reasons; Z68.22 Body mass index [BMI] 22.0-22.9, adult; Z71.3 Dietary counseling and surveillance; Z71.6 Tobacco abuse counseling; Z79.01 Long term (current) use of anticoagulants; Z79.899 Other long term (current) drug therapy; Z79.82 Long term (current) use of aspirin; Z79.51 Long term (current) use of inhaled steroids; Z86.718 Personal history of other venous thrombosis and embolism; Z91.15 Patient's noncompliance with renal dialysis; Z89.611 Acquired absence of right leg above knee; Z83.2 Family history of diseases of the blood and blood-forming organs and certain disorders involving the immune mechanism
CPT/HCPCS: 36415; 71045; 71046; 80048; 80053; 83605; 83735; 83880; 84484; 85025; 85027; 85610; 85730; 86850; 86900; 86901; 86920; 87040; 87077; 87186; 87502; 93005; 94640; 94760; 96365; 96367; 96375; 99291

== ENCOUNTER 2019-03-24 18:17 | Inpatient (IN) | payer MEDICAID ==
[2019-03-24] MEDS ORDERED: ONDANSETRON 4 MG/2 ML VIAL IVP PRN (18:57)
[2019-03-24] MEDS ORDERED: SCOPOLAMINE 1.5MG/72HR PATCH TRANSDERM SCH (19:00)
[2019-03-24] MEDS: IPRATROPIUM-ALBUTEROL 3 ML NEB INHALATION SCH (19:56)
[2019-03-24] MEDS: MORPHINE SULFATE 2 MG/ML SYRINGE IV PRN (20:08)
[2019-03-24] MEDS: METOPROLOL TARTRATE 25 MG TAB PO SCH (20:12)
[2019-03-24] MEDS: PREGABALIN 50 MG CAP PO SCH (20:12)
[2019-03-24] MEDS: INSULIN ASPART (NovoLOG) 100 UNIT/ML VIAL SQ SCH (20:13)
[2019-03-24] MEDS: methylPREDNISolone SOD SUCCI 40 MG/ML 1 ML VIAL IV SCH (22:54)
[2019-03-24 23:19] VITALS: TEMP 97
[2019-03-25] MEDS: IPRATROPIUM-ALBUTEROL 3 ML NEB INHALATION SCH ×7 (00:26→23:50)
[2019-03-25] MEDS: LORazepam 2 MG/ML INJ IV PRN ×3 (00:58→13:55)
[2019-03-25 04:59] VITALS: BP 116/64
[2019-03-25] MEDS: INSULIN ASPART (NovoLOG) 100 UNIT/ML VIAL SQ SCH ×4 (06:13→20:01)
[2019-03-25] MEDS: PANTOPRAZOLE 40 MG TABLET PO SCH (06:20)
[2019-03-25] MEDS: methylPREDNISolone SOD SUCCI 40 MG/ML 1 ML VIAL IV SCH ×3 (11:07→22:50)
[2019-03-25] MEDS: PREGABALIN 50 MG CAP PO SCH ×3 (11:07→20:01)
[2019-03-25] MEDS: NICOTINE 14MG/24HR PATCH TRANSDERM SCH (11:07)
[2019-03-25] MEDS: METOPROLOL TARTRATE 25 MG TAB PO SCH ×2 (11:07→20:01)
[2019-03-25] MEDS: MORPHINE SULFATE 2 MG/ML SYRINGE IV PRN ×2 (12:45→14:32)
[2019-03-25] MEDS ORDERED: MORPHINE SULFATE (100 MG/2 ML) 100 MG in SODIUM CHLORIDE 0.9% 100 ML IV SCH ×4 (14:45)
--- NOTE | 2019-03-25 19:08 | PN ---
PROGRESS NOTE DATE OF SERVICE: 03/25/2019 This 68-year-old gentleman admitted with shortness of breath and as well as COPD exacerbation and pneumonia also had significant anemia. Patient also had chronic renal failure. The patient refusing treatment and also blood transfusions. At this times the patient and family are leaning towards hospice. At this time patient is extremely short of breath. The patient needed a Venti mask at this time. PAST MEDICAL HISTORY: Reviewed. REVIEW OF SYSTEMS: Could not be taken. CURRENT MEDICATIONS: 1. NovoLog scale. 2. Ativan. 3. Solu-Medrol. 4. Habitrol. 5. Protonix. 6. Lyrica. PHYSICAL EXAM: Patient is stuporous. Pulse is 115, blood pressure is 116/84, respirations 16, temperature normal, pulse ox 87% on room air. HEENT: Conjunctivae pale. HEENT: Conjunctivae normal. Oral mucosa moist. NECK: No jugular venous distention. No lymph node enlargement. CARDIOVASCULAR: S1, S2. RESPIRATORY: Diminished breath sounds at the bases. Breathing efforts are markedly increased. Bilateral scattered rhonchi and crackles. ABDOMEN: Soft, nontender. No mass palpable. LEGS: No edema, no swelling. NERVOUS SYSTEM: Diffusely weak. LAB: Hemoglobin 6.6. ASSESSMENT: 1. Shortness of breath with possible chronic obstructive pulmonary disease acute exacerbation as well as acute right lower lobe pneumonia and middle lobe pneumonia with possibly gram-negative sepsis present on admission with acute hypoxic respiratory failure. 2. Chronic renal failure stage 4 to 5, not on hemodialysis per patient's preference. 3. Anemia, multifactorial, possibly from the renal failure. Needed transfusion but the patient refused. 4. Elevated plasma lactic acid, possibly secondary to sepsis present on admission. 5. Metabolic acidosis secondary to renal failure. 6. Hyponatremia. 7. Increased WBC. 8. Anemia. 9. Troponin 0.05, indeterminate. 10.Mild Coumadin coagulopathy. 11.Mild to moderate protein calorie malnutrition. 12.History of chronic obstructive pulmonary disease. 13.Diabetes mellitus type 2 with hyperglycemia. 14.History of deep vein thrombosis. 15.Hypertension. 16.Hyperlipidemia. 17.History of chronic renal failure. 18.History of continued ongoing nicotine dependence. 19.NO CODE, NO CPR. NO VENT. RECOMMENDATIONS AND DISCUSSION: In this 68-year-old gentleman who presented with multiple complex medical issues, we will monitor the patient closely, continue the current management, continue symptomatic treatment. Otherwise, at this time, as mentioned earlier, the patient and the family also expressed wishes to continue with the hospice. I had detailed discussion with the family. At this time hospice will be consulted and the patient will be transitioned to hospice at this time. Otherwise, overall prognosis is extremely guarded because of multiple complex medical issues as mentioned earlier, as well as per the patient's preference the patient did not want to proceed with dialysis and also the patient also refused transfusions despite hemoglobin 6.6 and further recommendations to follow. MMODL / IJN: [id number] /
[2019-03-26] MEDS: IPRATROPIUM-ALBUTEROL 3 ML NEB INHALATION SCH ×3 (03:35→11:20)
[2019-03-26] MEDS: INSULIN ASPART (NovoLOG) 100 UNIT/ML VIAL SQ SCH (03:56)
[2019-03-26] MEDS: PANTOPRAZOLE 40 MG TABLET PO SCH (03:57)
[2019-03-26 09:01] VITALS: PULSE 94; RESP 8
[2019-03-26] MEDS: NICOTINE 14MG/24HR PATCH TRANSDERM SCH (09:43)
[2019-03-26] MEDS: METOPROLOL TARTRATE 25 MG TAB PO SCH (09:43)
[2019-03-26] MEDS: PREGABALIN 50 MG CAP PO SCH (09:43)
[2019-03-26] MEDS: methylPREDNISolone SOD SUCCI 40 MG/ML 1 ML VIAL IV SCH (10:24)
--- NOTE | 2019-03-27 08:09 | DS ---
DISCHARGE SUMMARY DATE OF SERVICE: 03/26/2019. PRELIMINARY CAUSE OF : Chronic obstructive pulmonary disease acute exacerbation. OTHER DIAGNOSES: 1. Shortness of breath multifactorial chronic obstructive pulmonary disease acute exacerbation with acute right lower lobe pneumonia and middle lobe pneumonia, possibly gram-negative with sepsis, present on admission with acute hypoxic respiratory failure. 2. Chronic renal failure, stage 4 to 5, patient refused hemodialysis. 3. Anemia, multifactorial possibly from renal failure. The patient refused transfusion. 4. Elevated plasma lactic acid, possibly secondary to sepsis, present on admission. 5. Metabolic acidosis secondary to renal failure. 6. Hyponatremia. 7. Increased WBC. 8. Anemia. 9. Troponin 0.04 indeterminate. 10.Mild Coumadin coagulopathy. 11.Mild to moderate protein-calorie malnutrition. 12.History of chronic obstructive pulmonary disease. 13.Diabetes mellitus type 2 with hyperglycemia. 14.History of deep venous thrombosis. 15.Hypertension. 16.Hyperlipidemia. 17.History of chronic renal failure. 18.History of continued ongoing nicotine dependence. 19.NO CODE NO CPR, NO VENT. HISTORY OF PRESENT ILLNESS: This 68-year-old gentleman with a past medical history of multiple medical problems admitted with shortness of breath, COPD and multiple other complex medical issues as listed above. The patient has previously opted not to have hemodialysis. The patient has significant shortness of breath and the patient also has a combination of COPD and pneumonia. The patient also had significant anemia. Hemoglobin dropped near to 5.6. The patient refused transfusion as per the previously documented wishes. Despite conservative line of management, patient did not improve and discussion was held with the patient and family and the patient opted for continue with hospice measures and the patient succumbed to his above-mentioned illnesses. Please refer to the multiple consultation notes and progress notes for further details. The prognosis was extremely guarded throughout the hospital stay as mentioned earlier. MMODL / IJN: [id number] /
== END 2019-03-26 11:55 | disposition expired | DRG 951 ==
LOC: 3SCARD 19:34
PROVIDERS: ADMIT Hospitalist; ATTEND Hospitalist
DX: Z51.5 Encounter for palliative care (principal); A41.50 Gram-negative sepsis, unspecified; J18.9 Pneumonia, unspecified organism; J96.01 Acute respiratory failure with hypoxia; J44.0 Chronic obstructive pulmonary disease with (acute) lower respiratory infection; J44.1 Chronic obstructive pulmonary disease with (acute) exacerbation; E44.0 Moderate protein-calorie malnutrition; Z68.1 Body mass index [BMI] 19.9 or less, adult; E87.1 Hypo-osmolality and hyponatremia; E87.2 Acidosis; I12.0 Hypertensive chronic kidney disease with stage 5 chronic kidney disease or end stage renal disease; N18.5 Chronic kidney disease, stage 5; Z66 Do not resuscitate; D63.1 Anemia in chronic kidney disease; E11.22 Type 2 diabetes mellitus with diabetic chronic kidney disease; E11.65 Type 2 diabetes mellitus with hyperglycemia; E78.5 Hyperlipidemia, unspecified; T45.515A Adverse effect of anticoagulants, initial encounter; R79.1 Abnormal coagulation profile; Z86.718 Personal history of other venous thrombosis and embolism; Z87.891 Personal history of nicotine dependence; Z91.15 Patient's noncompliance with renal dialysis; Z53.20 Procedure and treatment not carried out because of patient's decision for unspecified reasons; R79.89 Other specified abnormal findings of blood chemistry
CPT/HCPCS: 94640